=== PATIENT | male | born 1945 | race Caucasian/White ===

== ENCOUNTER 2016-10-05 08:00 | Outpatient (CLI) | payer MEDICARE ==
[~2016-10-05] VITALS: Ht 175.3 cm; Wt 92.7 kg
--- NOTE | ~2016-10-05 | HEMODYNAMI ---
PATIENT:ADRIAN RHODES MEDICAL RECORD: [id number] : 45 LOCATION[facility] [id number] ADMISSION DATE: 10/05/16 Generatedon:10/06/20169:45 Patient name: ADRIAN RHODES Patient #: [id number] : 1945 Date of study: 10/06/2016 Page: Of Hemodynamic Procedure Report Patient Data Patient Demographics Procedure consent was obtained First Name: ADRIAN Gender: Male Last Name: CARMELO : 1945 Middle Initial: W Age: 71 year(s) Patient #: [id number] Race: SSN: [id number] Additional ID: [id number] Contact details [address]: [address] [place] [address] State: [place] City: [place] Zip code: [address] Past Medical History Allergies Allergen Reaction Date Comments Reported Other allergy 10/05/2016 sulfa, rocephin Other allergy 10/06/2016 Sulfa Admission Admission Data Admission Date: 10/05/2016 Admission Time: 8:00 Arrival Date: 10/05/2016 Arrival Time: 8:00 Admit Source: Other Insurance Payor: Private Room #: [id number] health insurance Height (in.): 62 BSA: 1.93 (m2) Height (cm.): 157.48 BMI: 37.31 (kg/m2) Weight (lbs.): 204 Weight (kg.): 92.53 Lab Results Lab Result Date: 10/05/2016 Lab Result Time: 0:00 Biochemistry Name Units Result Min Max BUN mg/dl 30 --(----)-* 7 18 Creatinine mg/dl 1.5 --(----)-* 0.6 1.3 CBC Name Units Result Min Max Hemoglobin g/dl 14.9 --(-*--)-- 13.5 17.5 Procedure Procedure Types Cath Procedure PCI Procedure Coronary Stent Initial Coronary Stent Additional Miscellaneous Procedures Moderate Sedation up to 15 minutes Procedure Description Procedure Date Procedure Date: 10/06/2016 Procedure Start Time: 9:19 Procedure End Time: 9:40 Procedure Staff Name Function Greg Looney MD Performing Physician Beatriz Lim RT Scrub Terence Chavez RN Nurse Nighat Cook RT Monitor Procedure Data Cath Procedure Fluoroscopy Diagnostic fluoroscopy Total fluoroscopy Time: 7.9 time: 7.9 min min Diagnostic fluoroscopy Total fluoroscopy dose: 686 dose: 686 mGy mGy Contrast Material Contrast Material Type Amount (ml) Isovue 300 119 Entry Location Entry Primary Successful Side Size Upsize Upsize Entry Closure Succes sful Closure Location (Fr) 1 (Fr) 2 (Fr) Remarks Device Remarks Femoral Right 7 Fr 7 Fr Exoseal artery Short Long Estimated blood loss: 10 ml Procedure Complications No complications Procedure Medications Medication Administration Route Dosage Oxygen NC 2 l/min Lidocaine 2% added to field 20 Heparin Flush Bag added to field 2 bags (1000units/500ml NS) 0.9% NaCl I.V. 100 ml/hr Versed I.V. 1 mg Fentanyl I.V. 50 mcg Versed I.V. 1 mg Fentanyl I.V. 50 mcg Versed I.V. 1 mg Fentanyl I.V. 50 mcg Versed I.V. 1 mg Fentanyl I.V. 50 mcg Heparin Bolus I.V. 4000 units Versed I.V. 1 mg Fentanyl I.V. 50 mcg Hemodynamics Rest BSA: 1.93 (m2) HGB: 14.9 (g/dl) O2 Consumption: Estimated: 203.05 (ml/min) O2 Co nsumption indexed: Estimated:105.21 (ml/min/m) Heart Rate: 43 (bpm) Snapshots Pre Cath Intra NCS Post Cath Vital Signs Time Heart Resp SPO2 etCO2 LM0ocpl NIBP (mmHg) Rhythm Pain Sedation Rate (ipm) (%) (mmHg) (mmHg) Status Level (bpm) 8:15:06 56 26 95 0 0 Measuring NSR 0 (11) 10(A) , No pain 8:15:37 56 32 93 0 0 208/89(160) NSR 0 (11) 10(A) , No pain 8:20:13 51 25 92 0 0 193/88(157) NSR 0 (11) 10(A) , No pain 8:24:50 50 17 93 0 0 201/87(144) NSR 0 (11) 10(A) , No pain 8:29:20 50 18 94 0 0 178/81(156) NSR 0 (11) 10(A) , No pain 8:33:53 51 15 95 0 0 170/89(150) NSR 0 (11) 10(A) , No pain 8:39:14 49 16 94 0 0 182/84(147) NSR 0 (11) 10(A) , No pain 8:43:45 47 15 96 0 0 174/81(132) NSR 0 (11) 10(A) , No pain 8:48:17 48 17 93 0 0 178/79(158) NSR 0 (11) 10(A) , No pain 8:52:49 56 16 93 0 0 171/87(144) NSR 0 (11) 10(A) , No pain 8:57:20 56 16 96 0 0 181/76(168) NSR 0 (11) 10(A) , No pain 9:02:47 52 16 97 0 0 199/83(162) NSR 0 () 10(A) , No pain 9:07:18 52 14 96 0 0 180/76(162) NSR 0 (11) 9(A) , No pain 9:11:40 60 16 93 0 0 165/96(153) NSR 0 (11) 9(A) , No pain 9:17:14 57 15 94 0 0 186/74(128) NSR 0 (11) 9(A) , No pain 9:22:46 59 17 94 0 0 187/85(151) NSR 0 (11) 9(A) , No pain 9:27:14 67 15 94 0 0 171/86(148) NSR 0 (11) 9(A) , No pain 9:32:52 72 15 95 0 0 175/95(143) NSR 0 (11) 9(A) , No pain 9:38:44 72 16 95 0 0 228/117(194) NSR 0 (11) 10(A) , No pain Medications Time Medication Route Dose Verified Delivered Reason Notes Eff ectiveness by by 8:24:18 Oxygen NC 2 Greg Pratt used for l/min Aayush Chavez lactation specialist 8:24:25 Lidocaine 2% added 20ml Greg Garza for local to vial Aayush Looney MD anesthetic field 8:24:34 Heparin Flush added 2 Gregedwige Garza used for Bag to bags Aayush Looney MD procedure (1000units/500ml field NS) 8:24:42 0.9% NaCl I.V. 100 Greg Pratt Per ml/hr Aayush Chavez RN physician 8:52:44 Versed I.V. 1 mg Greg Pratt for Aayush Chavez RN sedation 8:52:50 Fentanyl I.V. 50 Greg aCie for mcg Aayush Chavez RN sedation 9:01:24 Versed I.V. 1 mg Greg Caie for Aayush Chavez RN sedation 9:01:27 Fentanyl I.V. 50 Greg Caie for tina Chavez RN sedation 9:05:32 Versed I.V. 1 mg Greg Caie for Aayush Chavez RN sedation 9:05:36 Fentanyl I.V. 50 Greg Caie for tina Chavez RN sedation 9:12:10 Versed I.V. 1 mg Greg Caie for Aayush Chavez RN sedation 9:12:14 Fentanyl I.V. 50 Greg Caie for tina Chavez RN sedation 9:25:27 Heparin Bolus I.V. 4000 Greg Caie verified units Aayush Chavez RN with dr looney 9:28:04 Fentanyl I.V. 50 Greg Buffie for tina Chavez RN sedation 9:28:59 Versed I.V. 1 mg Greg Pratt for Aayush Chavez RN sedation Procedure Log Time Note 7:32:34 Informed consent obtained and on chart 7:32:51 Patient Weight : 204 kg 7:32:51 Patient Height : 62 cm 7:34:19 Insurance Payor : Private health insurance 7:34:25 Arrival Date: 10/05/2016 8:00:00 AM 7:34:55 Diagnostic Cath Status : Elective 7:36:08 Terence Chavez RN sent for patient. Start room use. 7:36:09 Time tracking: Regular hours 7:36:15 Plan of Care:Hemodynamics will remain stable., Cardiac rhythm will remain stable., Comfort level will be maintained., Respiratory function will remain adequate., Patient/ family verbilizes understanding of procedure., Procedure tolerated without complication., Recovers from procedure without complications.. 8:13:09 Patient received from Med II to CCL 1 Alert and oriented. Tansferred to table in Supine position. 8:13:10 Warm blankets applied, and china hugger turned on for patient comfort. 8:13:12 Correct patient and procedure confirmed by team. 8:13:14 ECG and BP/O2 sat monitors applied to patient. 8:13:16 Vital chart was started 8:13:19 Baseline sample Acquired. 8:13:24 Rhythm: sinus rhythm 8:13:26 Full Disclosure recording started 8:13:33 H&P Date Dictated: 10/06/2016 Within 30 days and on chart.. 8:13:34 Pre-procedure instructions explained to patient. 8:13:37 Family unavailable. 8:13:39 Patient NPO since Midnight. 8:13:54 Patient allergic to Other allergySulfa 8:14:40 Is the patient allergic to Iodine/contrast media? No. 8:14:44 Is patient on blood thinner?Yes 8:14:48 ACC The patient was administered the following blood thiners within the last 24 hours: ACCPlavix 8:14:58 Patient diabetic? No. 8:15:06 Snore? Yes 8:15:11 Sleep apnea? No 8:15:15 Deviated septum? No 8:15:18 Opens mouth fully? Yes 8:15:21 Sticks out tongue? Yes 8:15:42 IV patent on arrival in left forearm with 0.9% NaCl at O. 8:16:06 Lab results completed and on chart. 8:16:11 Right groin area was prepped with chlora-prep and draped in sterile fashion 8:16:13 Alarms reviewed by R. N. 8:16:13 Sharps counted by scrub and verified by R.N. 8:16:14 Physician paged 8:16:19 Use device set Femoral PCI 8:16:20 Acist Syringe opened to sterile field. 8:16:21 Acist Hand Control opened to sterile field. 8:16:21 Bag Decanter opened to sterile field. 8:16:22 Medline Cath Pack opened to sterile field. 8:16:31 Terumo 7Fr [place] Sheath opened to sterile field. 8:16:32 Tegaderm 4 x 4 opened to sterile field. 8:16:33 Acist Manifold opened to sterile field. 8:16:35 Merit BasixCompak Inflation Kit opened to sterile field. 8:16:36 St Royce 260cm J .035 wire opened to sterile field. 8:17:18 Procedure type changed to Cath procedure, PCI procedure, Coronary Stent Initial, Coronary Stent Additional, Miscellaneous Procedures, Moderate Sedation up to 15 minutes 8:24:18 Oxygen 2 l/min NC was administered by Terence Chavez RN; used for procedure; 8:24:25 Lidocaine 2% 20ml vial added to field was administered by Greg Looney MD; for local anesthetic; 8:24:34 Heparin Flush Bag (1000units/500ml NS) 2 bags added to field was administered by Greg Looney MD; used for procedure; 8:24:42 0.9% NaCl 100 ml/hr I.V. was administered by Terence Chavez RN; Per physician; 8:28:26 Zero performed for pressure channel P1 8:42:02 Bizzbytronic Launcher 7Fr AR 2.0 SH guide catheter opened to sterile field. 8:52:05 Physician arrived 8:52:07 --------ALL STOP TIME OUT------ 8:52:07 Final Timeout: patient, procedure, and site verified with staff and physician. All members of the team are in agreement. 8:52:09 Right groin site verified by team. 8:52:15 Sedation plan: IV Moderate Sedation Versed, Fentanyl 8:52:44 Versed 1 mg I.V. was administered by Terence Chavez RN; for sedation; 8:52:50 Fentanyl 50 mcg I.V. was administered by Terence Chavez RN; for sedation; 9:01:24 Versed 1 mg I.V. was administered by Terence Chavez RN; for sedation; 9:01:27 Fentanyl 50 mcg I.V. was administered by Terence Chavez RN; for sedation; 9:05:32 Versed 1 mg I.V. was administered by Terence Chavez RN; for sedation; 9:05:36 Fentanyl 50 mcg I.V. was administered by Terence Chavez RN; for sedation; 9:12:10 Versed 1 mg I.V. was administered by Terence Chavez RN; for sedation; 9:12:14 Fentanyl 50 mcg I.V. was administered by Terence Chavez RN; for sedation; 9:18:55 Procedure started. 9:19:17 Local anesthetic to right femoral artery with Lidocaine 2% by Greg Looney MD.INITIAL ACCESS ONLY 9:20:11 A 7 Fr Short sheath was inserted into the Right Femoral artery 9:21:08 ACC PCI Site: mRCA has 80-95% stenosis. 9:21:15 ACC Pre-intervention HUEY Flow is 3. 9:21:32 7 Fr HS2SH guide catheter was inserted over the wire 9:23:04 Sheath upsized to a 7 Fr Long. 9:23:37 Medtronic Launcher 7Fr HS II SH guide catheter opened to sterile field. 9:23:55 7 Fr HS2SH guide catheter was inserted over the wire 9:24:32 Whisper wire advanced. 9:25:27 Heparin Bolus 4000 units I.V. was administered by Terence Chavez RN; ; verified with dr looney 9:25:33 Wire removed. 9:26:01 Darby Sci Choice PT Extra Support J 300cm .014 gu opened to sterile field. 9:28:04 Fentanyl 50 mcg I.V. was administered by Terence Chavez RN; for sedation; 9:28:46 Inflation number: 1 A Darby Sci [place] 2.5 X 20 balloon was prepped and advanced across the R PAV, then inflated to 17 MAVIS for 0:10 (min:sec). 9:28:57 Inflation number: 2 The Darby Sci [place] 2.5 X 20 balloon was reinflated across the R PAV, to 21 MAVIS for 0:10 (min:sec). 9:28:59 Versed 1 mg I.V. was administered by Terence Chavez RN; for sedation; 9:29:17 Balloon removed over the wire. 9:31:35 Inflation Number: 3 A Medtronic Resolute 3.0 X 22 stent was prepped and advanced across the R PAV. The stent was deployed at 13 MAVIS for 0:10 (min:sec). 9:31:49 Inflation number: 4 The stent balloon was then re-inflated across the R PAV to 17 MAVIS for 0:10 (min:sec). 9:34:15 Inflation Number: 1 A Medtronic Resolute 3.5 X 38 stent was prepped and advanced across the Mid RCA. The stent was deployed at 17 MAVIS for 0:10 (min:sec). 9:34:55 Cordis 7Fr Exoseal opened to sterile field. 9:35:15 Stent catheter was removed intact over wire. 9:35:16 Wire removed. 9:35:17 Guide catheter removed. 9:36:11 Sheath removed intact; hemostasis achieved with Exoseal to the Right Femoral artery. 9:36:15 Procedure ended.(Physican Out) 9:36:40 Fluoroscopy time 07.90 minutes. 9:37:14 Fluoroscopy dose: 686 mGy 9:37:14 Flurop Dose total: 686 9:37:19 Contrast amount:Isovue 300 119ml. 9:37:22 Sharps counted by scrub and verified by R.N. 9:37:29 Insertion/operative site no bleeding no hematoma. 9:37:34 Post Procedure Pulses reassessed and unchanged 9:37:40 Post-procedure physical assessment completed. ASA score P 3 - A patient with severe systemic disease as per Greg Looney MD. 9:37:45 Post procedure rhythm: unchanged. 9:37:49 Estimated blood loss: 10 ml 9:37:53 Post procedure instruction explained to patient.Patient verbalizes understanding. 9:37:54 Patient needs reinforcement of post procedure teaching. 9:38:40 Procedure and supply charges have been captured, reviewed, submitted and are correct. 9:39:46 Procedure Complication : No complications 9:39:51 Vital chart was stopped 9:40:00 See physician's report for complete and final results. 9:40:08 Report given to Pre/Post Procedure Room. 9:40:19 Report given to Med II. 9:40:50 Patient transfered to Med II with Bed. 9:40:56 Procedure ended. 9:40:56 Full Disclosure recording stopped 9:41:00 End room use (Document Last) 9:41:35 ACC-PCI Only Patient was given prescriptions, or instructed by Greg Looney MD to start/continue the following medications upon discharge: Plavix Intervention Summary Intervention Notes Time ActionType Lesion and Equipment Action# Pressure Duration Attributes Used 9:28:46 Inflate R PAV Darby 1 17 00:10 balloon Sci [place] 2.5 X 20 balloon 9::57 Reinflate R PAV Darby 2 21 00:10 balloon Sci [place] 2.5 X 20 balloon 9:31:35 Place stent R PAV Medtronic 3 13 00:10 Resolute 3.0 X 22 stent 9:31:49 Reinflate R PAV Medtronic 4 17 00:10 stent Resolute balloon 3.0 X 22 stent 9:34:15 Place stent Mid RCA Medtronic 1 17 00:10 Resolute 3.5 X 38 stent Device Usage Item Name Manufacture Quantity Catalog Number Hospital Part Current Mini mal Lot# / Charge Number Stock Stock Serial# Code Acist Acist 1 53677 140943 823058 [id number] 20 Syringe Medical Systems Inc Acist Hand Acist 1 88451 261858 291354 924098 5 Control Medical Systems Inc Bag Microtek 1 2002S 375903 85658 845062 5 Truzip Inc. Medline Cardinal 1 [id number] 790377 42002 781908 5 [employer] Terumo 7Fr Terumo 1 [id number] 830800 693295 590307 5 [place] Sheath Tegaderm 4 3M 1 [id number] 854034 321446 037802 5 x 4 Acist Acist 1 08815 295093 936225 539569 5 Cyvera Medical Systems Inc Merit Merit 1 [id number] 897927 012896 507651 15 BasixUP Web Game GmbHakInnovolt Medical Inflation Kit St Royce St Royce 1 [id number] 224810 301148 345106 30 260cm J .035 wire Medtronic Medtronic 1 [id number] 503346 303417 188031 0 Launcher 7Fr AR 2.0 SH guide catheter Medtronic Medtronic 1 [id number] 313762 331136 548619 0 Launcher 7Fr HS II SH guide catheter Darby Sci Darby 1 [id number] 760608 20181212 575489 5 Choice PT Scientific Extra Support J 300cm .014 gu Darby Sci Darby 1 [id number] 775921 686210 644377 1 [id number] [place] Scientific 2.5 X 20 balloon Medtronic Medtronic 1 [id number] 834668 387828 9 [id number] Resolute 3.0 X 22 stent Medtronic Medtronic 1 [id number] 290699 382420 0 [id number] Resolute 3.5 X 38 stent Cordis 7Fr Cardinal 1 [id number] 045904 812551 506173 5 Exoseal Health Signature Audit [place] Stage Time Signature Unsigned Intra-Procedure 10/06/2016 Nighat Cook 9:45:40 AM RT(R) Signatures Monitor : Nighat Cook Signature : RT Date : Time : [place] [id number] [place] [address]
--- NOTE | ~2016-10-05 | HEMODYNAMI ---
PATIENT:ADRIAN RHODES MEDICAL RECORD: [id number] : 45 LOCATION:DRonel[facility] ADMISSION DATE: 10/05/16 Generatedon:10/05/201610:55 Patient name: ADRIAN RHODES Patient #: [id number] : 1945 Date of study: 10/05/2016 Page: Of Hemodynamic Procedure Report Patient Data Patient Demographics Procedure consent was obtained First Name: ADRIAN Gender: Male Last Name: CARMELO : 1945 Middle Initial: W Age: 71 year(s) Patient #: [id number] Race: Unknown SSN: [id number] Additional ID: [id number] Contact details [address]: [address] [place] [address] State: [place] City: [place] Zip code: [address] Past Medical History Allergies Allergen Reaction Date Comments Reported Other allergy 10/05/2016 sulfa, rocephin Admission Admission Data Admission Date: 10/05/2016 Admission Time: 8:00 Arrival Date: 10/05/2016 Arrival Time: 0:00 Admit Source: Other Height (in.): 62 BSA: 1.93 (m2) Height (cm.): 157.48 BMI: 37.31 (kg/m2) Weight (lbs.): 204 Weight (kg.): 92.53 Lab Results Lab Result Date: 10/05/2016 Lab Result Time: 0:00 Biochemistry Name Units Result Min Max BUN mg/dl 30 --(----)-* 7 18 Creatinine mg/dl 1.5 --(----)-* 0.6 1.3 CBC Name Units Result Min Max Hemoglobin g/dl 14.9 --(-*--)-- 13.5 17.5 Procedure Procedure Types Cath Procedure Diagnostic Procedure C [facility] w/Coronaries PCI Procedure Coronary Stent Initial Miscellaneous Procedures Procedure Description Procedure Date Procedure Date: 10/05/2016 Procedure Start Time: 10:37 Procedure End Time: 10:52 Procedure Staff Name Function Greg Looney MD Performing Physician Nighat Cook RT Scrub Terence Chavez RN Nurse Nighat Cook RT Monitor Procedure Data Cath Procedure Fluoroscopy Diagnostic fluoroscopy Total fluoroscopy Time: 2.8 time: 2.8 min min Diagnostic fluoroscopy Total fluoroscopy dose: 672 dose: 672 mGy mGy Contrast Material Contrast Material Type Amount (ml) Isovue 300 98 Entry Location Entry Primary Successful Side Size Upsize Upsize Entry Closure Varner ccessful Closure Location (Fr) 1 (Fr) 2 (Fr) Remarks Device Remarks Radial Right 6 Fr Mechanical TR band artery Short Compression Estimated blood loss: 10 ml Diagnostic catheters Device Type Used For End Catheter Placement Terumo 5Fr Concordia 110cm Procedure catheter Procedure Complications No complications Procedure Medications Medication Administration Route Dosage Oxygen NC 2 l/min Lidocaine 2% added to field 20 Heparin Flush Bag added to field 2 bags (1000units/500ml NS) 0.9% NaCl I.V. 100 ml/hr Versed I.V. 1 mg Fentanyl I.V. 50 mcg Versed I.V. 1 mg Fentanyl I.V. 50 mcg Radial Cocktail I.A. 1 syringe (Verapomil 2mg/Nitro 400mcg/Heparin 1500units) Heparin Bolus I.V. 4000 units Fentanyl I.V. 50 mcg Hemodynamics Rest BSA: 1.93 (m2) HGB: 14.9 (g/dl) O2 Consumption: Estimated: 213.13 (ml/min) O2 Co nsumption indexed: Estimated:110.43 (ml/min/m) Heart Rate: 56 (bpm) Pressure Samples Time Site Value (mmHg) Purpose Heart Use Rate(bpm) 10:42 LV 61/2,-1 Snapshot 57 10:42 AO 136/68(91) Pullback 55 10:42 LV 138/11,13 Pullback 55 Gradients Valve Time Site 1 Site 2 Mean SEP/DFP Peak To Heart Use (mmHg) (sec/min) Peak Rate (mmHg) (bpm) Aortic 10:42 LV AO 2 12 2 55 138/11,13 136/68(91) Calculations Valve P-P Mean Valve Index Valve Source Name Gradient Area Flow (cm2) Aortic 2 2 2 2 Snapshots Pre Cath Intra NCS Post Cath Vital Signs Time Heart Resp SPO2 etCO2 [id number] NIBP (mmHg) Rhythm Pain Sedation Rate (ipm) (%) (mmHg) (mmHg) Status Level (bpm) 10:06:14 53 22 93 0 0 174/86(151) NSR 0 (11) 10(A) , No pain 10:10:44 53 15 94 0 0 191/93(160) NSR 0 (11) 10(A) , No pain 10:15:19 52 15 93 0 0 174/83(156) NSR 0 (11) 10(A) , No pain 10:19:45 54 16 95 0 0 159/90(144) NSR 0 (11) 10(A) , No pain 10:25:15 51 15 94 0 0 162/79(141) NSR 0 (11) 10(A) , No pain 10:30:32 48 16 94 0 0 167/78(136) NSR 0 (11) 10(A) , No pain 10:35:52 51 16 93 0 0 154/82(134) NSR 0 (11) 10(A) , No pain 10:41:23 57 15 94 0 0 149/77(124) NSR 0 (11) 9(A) , No pain 10:45:48 62 16 93 0 0 162/79(127) NSR 0 (11) 9(A) , No pain 10:50:10 62 17 94 0 0 145/77(125) NSR 0 (11) 10(A) , No pain Medications Time Medication Route Dose Verified Delivered Reason Note s Effectiveness by by 10:15:21 Oxygen NC 2 l/min Greg Buffie used for Aayush Chavez RN procedure 10:15:28 Lidocaine 2% added 20ml Greg Buffie used for to vial Aayush Chavez RN procedure field 10:15:34 Heparin Flush added 2 bags Greg Buffie used for Bag to Aayush Chavez RN procedure (1000units/500ml field NS) 10:16:21 0.9% NaCl I.V. 100 Greg Buffie Per physician ml/hr Aayush Chavez RN 10:36:15 Versed I.V. 1 mg Greg Buffie for sedation Aayush Chavez RN 10:36:21 Fentanyl I.V. 50 mcg Greg Buffie for sedation Aayush Chavez RN 10:39:52 Versed I.V. 1 mg Greg Buffie for sedation Aayush Chavez RN 10:39:56 Fentanyl I.V. 50 mcg Greg Pratt for sedation Aayush Chavez RN 10:40:22 Radial Cocktail I.A. 1 Greg Garza for (Verapomil syringe Aayush Looney MD vasodilation 2mg/Nitro 400mcg/Heparin 1500units) 10:45:55 Heparin Bolus I.V. 4000 Greg Pratt for veri fied units Aayush Chavez RN anticoagulation with dr looney 10:47:31 Fentanyl I.V. 50 mcg Greg Pratt for sedation Aayush Chavez RN Procedure Log Time Note 9:47:36 Arrival Date: 10/05/2016 12:00:00 AM 9:47:37 Admit Source: Other 9:47:52 Patient Height : 62 cm 9:48:13 Patient Weight : 204 kg 9:50:40 Lab Result : BUN 30 mg/dl 9:50:40 Lab Result : Hemoglobin 14.9 g/dl 9:50:40 Lab Result : Creatinine 1.5 mg/dl 9:50:51 Procedure type changed to Cath procedure, Diagnostic procedure, LHC, LHC w/Coronaries, PCI procedure, Coronary Stent Initial, Miscellaneous Procedures 9:50:54 Diagnostic Cath Status : Elective 9:51:47 Terence Chavez RN sent for patient. Start room use. 9:51:49 Time tracking: Regular hours 9:51:55 Plan of Care:Hemodynamics will remain stable., Cardiac rhythm will remain stable., Comfort level will be maintained., Respiratory function will remain adequate., Patient/ family verbilizes understanding of procedure., Procedure tolerated without complication., Recovers from procedure without complications.. 9:55:53 Patient received from Pre/Post Procedure Room to CCL 1 Alert and oriented. Tansferred to table in Supine position. 9:55:55 Warm blankets applied, and china hugger turned on for patient comfort. 9:55:56 Correct patient and procedure confirmed by team. 9:55:58 Signed procedure consent form obtained from patient. 10:04:50 ECG and BP/O2 sat monitors applied to patient. 10:04:50 Vital chart was started 10:04:51 Baseline sample Acquired. 10:04:54 Rhythm: sinus rhythm 10:04:56 Full Disclosure recording started 10:05:07 H&P Date Dictated: 10/05/2016 H&P Addendum completed by physician on day of procedure. (MUST COMPLETE FOR ALL OUTPATIENTS). 10:05:08 Pre-procedure instructions explained to patient. 10:05:09 Pre-op teaching completed and patient verbalized understanding. 10:05:10 Family in waiting room. 10:05:12 Patient NPO since Midnight. 10:05:28 Patient allergic to Other allergysulfa, rocephin 10:05:30 Is the patient allergic to Iodine/contrast media? No. 10:05:31 Was the patient premedicated? No 10:05:34 Is patient on blood thinner?Yes 10:05:37 ACC The patient was administered the following blood thiners within the last 24 hours: ACCPlavix 10:05:40 Patient diabetic? No. 10:05:44 Previous problem with sedation/anesthesia? No ? 10:05:46 Snore? Yes 10:05:47 Sleep apnea? No 10:05:48 Deviated septum? No 10:05:49 Opens mouth fully? Yes 10:05:50 Sticks out tongue? Yes 10:05:52 Airway obstruction? No ? 10:05:55 Dentures? No ? 10:06:00 Pre procedure: right dorsailis pedis pulse 1+ Palpable, but thready & weak; easily obliterated 10:06:02 Patient pain scale 0/10 ?. 10:06:12 IV patent on arrival in left hand with 0.9% NaCl at [facility]. 10:06:16 Lab results completed and on chart. 10:06:25 Right Radial & Right Groin area was prepped with chlora-prep and draped in sterile fashion 10:06:28 Alarms reviewed by R. N. 10:06:29 Sharps counted by scrub and verified by R.N. 10:06:30 Physician paged 10:15:21 Oxygen 2 l/min NC was administered by Terence Chavez RN; used for procedure; 10::28 Lidocaine 2% 20ml vial added to field was administered by Terence Chavez RN; used for procedure; 10:15:34 Heparin Flush Bag (1000units/500ml NS) 2 bags added to field was administered by Terence Chavez RN; used for procedure; 10:16:21 0.9% NaCl 100 ml/hr I.V. was administered by Terence Chavez RN; Per physician; 10:24:23 Zero performed for pressure channel P1 10:25:55 Physician arrived 10:35:49 --------ALL STOP TIME OUT------ 10:35:50 Final Timeout: patient, procedure, and site verified with staff and physician. All members of the team are in agreement. 10:35:52 Right Radial & Right Groin site verified by team. 10:35:58 Sedation plan: IV Moderate Sedation Versed, Fentanyl 10:36:06 Physical assessment completed. ASA score P 2 - A patient with mild systemic disease as per Greg Looney MD. 10:36:15 Versed 1 mg I.V. was administered by Terence Chavez RN; for sedation; 10:36:21 Fentanyl 50 mcg I.V. was administered by Terence Chavez RN; for sedation; 10:37:31 Procedure started. 10:37:37 Local anesthetic to right radial artery with Lidocaine 2% by Greg Looney MD.INITIAL ACCESS ONLY 10:39:15 A 6 Fr Short sheath was inserted into the Right Radial artery 10:39:25 Use device set Radial Dx 10:39:27 Acist Syringe opened to sterile field. 10:39:27 Medline Cath Pack opened to sterile field. 10:39:28 Bag Decanter opened to sterile field. 10:39:28 Terumo 6Fr Slender Glidesheath opened to sterile field. 10:39:29 St Royce 260cm J .035 wire opened to sterile field. 10:39:29 Acist Hand Control opened to sterile field. 10:39:29 Acist Manifold opened to sterile field. 10:39:30 Tegaderm 4 x 4 opened to sterile field. 10:39:30 MBrace Wrist Support opened to sterile field. 10:39:52 Versed 1 mg I.V. was administered by Terence Chavez RN; for sedation; 10:39:56 Fentanyl 50 mcg I.V. was administered by Terence Chavez RN; for sedation; 10:40:15 A Terumo 5Fr Concordia 110cm catheter was advanced over the wire and used for Procedure. 10:40:22 Radial Cocktail (Verapomil 2mg/Nitro 400mcg/Heparin 1500units) 1 syringe I.A. was administered by Greg Looney MD; for vasodilation; 10:40:35 LV angiography performed. 10:41:16 LV gram done using MOSES 10:42:24 EF : 50 % 10:42:27 LCA angiography performed. 10:43:07 RCA angiography performed. 10:44:18 Catheter removed. 10:45:30 Cordis 6FR XBLAD 3.5 guide catheter opened to sterile field. 10:45:31 Merit BasixCompak Inflation Kit opened to sterile field. 10:45:32 Barton Whisper J 300cm 0.014 guide wire opened to sterile field. 10:45:55 Heparin Bolus 4000 units I.V. was administered by Terence Chavez RN; for anticoagulation; verified with dr looney 10:46:02 Proceeding to intervention. 10:46:19 6 Fr XBLAD 3.5 guide catheter was inserted over the wire 10:46:40 Serina Therapeuticsisper wire advanced. 10:47:07 Wire advanced across lesion. 10:47:31 Fentanyl 50 mcg I.V. was administered by Terence Chavez RN; for sedation; 10:48:27 Inflation Number: 1 A MedMark Servicestronic Resolute 2.75 X 14 stent was prepped and advanced across the Mid LAD. The stent was deployed at 13 MAVIS for 0:10 (min:sec). 10:49:25 Stent catheter was removed intact over wire. 10:49:26 Wire removed. 10:49:26 Guide catheter removed. 10:49:35 Terumo TR Band Standard opened to sterile field. 10:49:54 Sheath removed intact; hemostasis achieved with Mechanical Compression to the Right Radial artery. 10:50:43 Procedure ended.(Physican Out) 10:50:53 Fluoroscopy time 02.80 minutes. 10:51:02 Fluoroscopy dose: 672 mGy 10:51:02 Flurop Dose total: 672 10:51:08 Contrast amount:Isovue 300 98ml. 10:51:10 Sharps counted by scrub and verified by R.N. 10:51:14 TR band inflated with 10cc of air. 10:51:16 Insertion/operative site no bleeding no hematoma. 10:51:19 Post Procedure Pulses reassessed and unchanged 10:51:23 Estimated blood loss: 10 ml 10:51:26 Post procedure instruction explained to patient.Patient verbalizes understanding. 10:51:34 Procedure and supply charges have been captured, reviewed, submitted and are correct. 10:52:01 Procedure Complication : No complications 10:52:03 Vital chart was stopped 10:52:05 See physician's report for complete and final results. 10:52:07 Report given to Pre/Post Procedure Room. 10:52:11 Patient transfered to Pre/Post Procedure Room with Stretcher. 10:52:14 Procedure ended. 10:52:14 Full Disclosure recording stopped 10:52:36 End room use (Document Last) Intervention Summary Intervention Notes Time ActionType Lesion and Equipment Action# Pressure Duration Attributes Used 10:48:27 Place stent Mid LAD Medtronic 1 13 00:10 Resolute 2.75 X 14 stent Device Usage Item Name Manufacture Quantity Catalog Hospital Part Current Minimal Lot# / Number Charge Number Stock Stock Serial# Code Acist Acist 1 48814 293743 173599 238256 20 Syringe Medical Systems Inc Medline Cardinal 1 [id number] 706789 08818 256836 5 Cath Pack Health Bag Microtek 1 2002S 849943 43905 137137 5 ERCOM Medical Inc. Terumo 6Fr Terumo 1 [id number] 212846 635532 691258 [address] St Royce 1 009567 089974 310904 196024 30 260cm J .035 wire Acist Hand Acist 1 48755 160726 172194 471228 5 Control Medical Systems Inc Acist Acist 1 24827 742210 708478 735749 5 Manifold Medical Systems Inc Tegaderm 4 3M 1 1626W 319384 913085 721267 5 x 4 MBrace Advanced 1 140-0250-00 927089 26513 834935 5 Wrist Vascular Support Dynamics Terumo 5Fr Terumo 1 40-6345 244503 004051 255238 5 Concordia 110cm catheter Cordis 6FR Cardinal 1 [id number] 500495 806638 847685 10 XBLAD 3.5 Health guide catheter Merit Merit 1 GI7155 469133 979918 245198 15 BasixCompak Medical Inflation Kit Barton Barton 1 [id number] 953673 594988 968461 5 Whisper J Vascular 300cm 0.014 guide wire Medtronic Medtronic 1 [id number] 441461 848059 4 [id number] Resolute 2.75 X 14 stent Terumo TR Terumo 1 [id number] 379438 384627 910801 40 Band Standard Signature Audit [place] Stage Time Signature Unsigned Intra-Procedure 10/05/2016 Nighat Cook 10:55:09 AM RT(R) Signatures Monitor : Nighat Cook Signature : RT Date : Time : [place] [id number] [facility] [place] [address]
[~2016-10-05 08:00] MED LIST: ARTHRITIS MED; BAYER CHEWABLE81 MG PO; CINNAMON500 MG PO; GEMFIBROZIL600 MG PO; HYZAAR 100-25 T1 TAB PO; MULTIPLE VITAMI1 TA1 PO; NIASPAN500 MG PO; NORVASC10 MG PO; PLAVIX75 MG PO
[2016-10-05 08:27] VITALS: BP 193/86; BMI 30.2
[2016-10-05 08:47] LABS: BASOPHILS 0.5 % (0-2); EOSINOPHILS 2.5 % (0-7); HEMATOCRIT 42.8 % (42.0-54.0); HEMOGLOBIN 14.9 g/dL (13.5-17.5); IMMATURE GRANULOCYTES 0.4 % (0-5); LYMPHOCYTES 29.7 % (15-50); MCH 29.4 pg (26.0-34.0); MCHC 34.8 g/dL (31.0-37.0); MCV 84.4 fL (80.0-100.0); MEAN PLATELET VOLUME 9.6 fL (7.4-10.4); MONOCYTES 8.8 % (2-11); NEUTROPHILS 58.1 % (40-80); PLATELET COUNT 271 10x3/uL (130-400); RBC 5.07 10x6/uL (4.20-6.10); RDW 13.2 % (11.5-14.5); WBC 5.6 10x3/uL (4.8-10.8)
[2016-10-05 09:06] LABS: ANION GAP 16.5 mmol/L (8-16); CALCIUM 9.4 mg/dL (8.5-10.1); CARBON DIOXIDE 25.7 mmol/L (21.0-32.0); CREATININE - SERUM 1.5 mg/dL (0.6-1.3); POTASSIUM - SERUM 4.2 mmol/L (3.5-5.1)
[2016-10-05 09:22] LABS: CKMB 2.6 U/L (0.0-3.6); CREATINE KINASE 116 UL (21-232); TROPONIN-I 0.036 ng/mL (0.000-0.060)
--- NOTE | 2016-10-05 12:03 | NUR ---
1115-TR BAND TO RIGHT WRIST- CDI, NO BLEEDING NOTED
--- NOTE | 2016-10-05 12:06 | NUR ---
1145-NO CHANGES, VISITING WITH FAMILY, DENIES NEEDS
--- NOTE | 2016-10-05 17:39 | NUR ---
1645-CALLED REPORT TO FLORESITA BARNETT. AWAITING CLEAN ROOM. 1705-TRANSFER VIA STRETCHER TO ROOM 2123, IV PATENT, RIGHT WRIST CDI
[2016-10-05 17:44] VITALS: BP 156/86; Ht 175.3 cm; Wt 92.7 kg
--- NOTE | 2016-10-05 17:51 | NUR ---
ARRIVED FROM [employer]. TR BAND OFF AND DRESSING CDI AND NO EDEMA. HAS BEEN UP TO BR WITHOUT ANY ISSUES. MONITOR SHOWS SBRADY @ RATE OF 55. WILL CONTINUE TO MONITOR.
--- NOTE | 2016-10-05 19:30 | NUR ---
ALERT AND ORIENTED X3 RESP UNLAB NS INFUSING W/O DIFF TO LEFT HAND WITH NO R/S NOTED AT SITE. RT WRIST BRACE FROM TR BAND ON. NO ACTIVE BLEEDING NOTED AT THIS TIME. UP AD ANDER W/O DIFF. WILL BE NPO AFTER MN FOR PROCEDURE IN AM. HOB UP SR UP X2, C/L IN REACH. CONTINUE TO MONITOR.
[2016-10-05 20:44] VITALS: BP 185/82
[2016-10-05 23:58] VITALS: BP 198/80
--- NOTE | 2016-10-06 | NUR ---
O2 @ 2L PLACED ON FOR O2 SAT OF 87%. CONTINUE TO MONITOR.
[2016-10-06 03:55] VITALS: BP 185/73
--- NOTE | 2016-10-06 07:42 | NUR ---
PREOP FOR CATH.
[2016-10-06 07:54] VITALS: BP 170/76
--- NOTE | 2016-10-06 08:06 | OP ---
PATIENT NAME: ADRIAN RHODES MEDICAL RECORD: [id number] :45 LOCATION:D.M2 D.2123 ADMISSION DATE: SURGEON: YINA ALLISON MD DATE OF OPERATION: 10/05/2016 PROCEDURES: 1. PTCA stent, LAD. 2. Left heart catheterization. 3. Selective coronary angiography. 4. Left ventriculogram. INDICATIONS: Angina and coronary artery disease. PROCEDURE IN DETAIL: After informed consent was obtained and after a detailed explanation of risks, benefits as well as alternative therapies, the patient elected to proceed with angiogram and angioplasty. The right radial area was prepped and draped in normal sterile fashion. Right radial artery was cannulated via modified Seldinger technique with placement of 6-Grenadian sheath. All catheters exchanged through this sheath. FINDINGS: The left ventriculogram was performed in standard 30-degree MOSES view, reveals preserved cardiac wall motion, ejection fraction 50%. SELECTIVE CORONARY ANGIOGRAPHY: 1. Left main is with no significant angiographic disease. 2. Left anterior descending has a 75% stenosis in the mid vessel. 3. Left circumflex has multiple areas of greater than 70% stenosis. 4. Right coronary is large, dominant, has multiple areas of greater than 80% stenosis throughout the mid portion of the vessel. The distal vessel has 95% stenosis; however, this would be better approached via femoral approach of a 7-Grenadian. PTCA STENT OF THE LAD: The stent used was a 2.5 x 12 mm Resolute. Result was 0% residual stenosis. OVERALL IMPRESSION: Successful percutaneous transluminal coronary angioplasty stent of the left anterior descending going from 75% initial stenosis to 0% residual. Plan for PTCA stent of the RCA in the near future. TRANSINT:[id number] Voice Confirmation ID: [id number] DOCUMENT ID: [id number] YINA ALLISON MD at 0806 CC: [id number] DICTATION DATE: 10/05/16 1057 CHIEF WRITER: 10/05/16 1825 [facility] [address] [place] [address]
--- NOTE | 2016-10-06 10:29 | NUR ---
PT RETURNED FROM [facility]. BP 212/100. DR. ALLISON NOTIFIED AND ORDERS RECEIVED. SITE CDI WITH NO EDEMA NOR BLEEDING. PT TO LAY FLAT UNTIL 1400. INSTRUCTED PATIENT ON THIS AND FAMILY ALSO. WILL CONTINUE TO MONITOR.
--- NOTE | 2016-10-06 11:35 | NUR ---
BP LOWING. NOW ITS 154/70. PATIENT SLEEPING SITE CLEAR WITHOUT ANY EDEMA OR BLEEDING.
--- NOTE | 2016-10-06 15:04 | NUR ---
SITE CLEAN AND DRY. UP TO AMB IN ROOM KAMILA WELL WITH OUT ANY DISTRESS. IV DC .
--- NOTE | 2016-10-06 15:26 | NUR ---
DISCHARGE INSTRUCTIONS GIVEN TO PATIENT. BOTH PATIENT AND FAMILY VERBALIZE UNDERSTANDING. TO CAR VIA WC.
--- NOTE | 2016-10-08 08:58 | OP ---
PATIENT NAME: ADRIAN RHODES MEDICAL RECORD: [id number] :45 LOCATION:D.CAT ADMISSION DATE: SURGEON: YINA ALLISON MD DATE OF OPERATION: 10/06/2016 PROCEDURES: 1. PTCA stent of RCA. 2. PTCA of RCA PLV. 3. Selective coronary angiography. INDICATION: Angina and coronary artery disease. DESCRIPTION OF THE PROCEDURE: After informed consent was obtained and after detailed explanation of risks, benefits, as well as alternative therapies, the patient elected to proceed with angiogram and angioplasty. The right femoral area was prepped and draped in normal sterile fashion. The right femoral artery was cannulated via modified Seldinger technique with placement of a 7-Russian sheath. All catheters exchanged through this sheath. FINDINGS: The right coronary artery has multiple areas of greater than 90% stenosis. The PLV has in-stent restenosis addressed with a 2.5 balloon taken to 17 atmospheres. The RCA itself was addressed with a 3.5 x 38 and 3.0 x 22, both Resolute stents. Result was 0% residual throughout. OVERALL IMPRESSION: Successful percutaneous transluminal coronary angioplasty stent of the right coronary artery going from multiple areas of 90% initial stenosis to 0% residual stenosis. TRANSINT:[id number] Voice Confirmation ID: [id number] DOCUMENT ID: [id number] YINA ALLISON MD at 0858 CC: [id number] DICTATION DATE: 10/06/16 0939 JOURNEYMAN MEAT CUTTER: 10/06/16 1529 [facility] CLI 10/06/16 [place] [id number]
--- NOTE | 2016-10-08 08:58 | DS ---
PATIENT:ADRIAN DICKERSON :45 MEDICAL RECORD: [id number] DISCHARGE SUMMARY ADMISSION DATE: 10/05/16 DISCHARGE DATE: 10/06/16 DISCHARGE DIAGNOSES: 1. Percutaneous transluminal coronary angioplasty stent of the right coronary artery. 2. Percutaneous transluminal coronary angioplasty stent of the left anterior descending. 3. Angina. 4. Coronary artery disease. 5. Peripheral vascular disease. 6. Hypertension. 7. Hyperlipidemia. HOSPITAL COURSE: Mr. Dickerson presents with anginal symptomatology and found to have significant disease to the RCA, LAD, and left circumflex, underwent successful PTCA stent of the RCA and LAD and had an uneventful postop course. He was discharged home with the addition of aspirin and Plavix to his medical regimen. We will follow up in 1 week for PTCA stent of the left circumflex. TRANSINT:[id number] Voice Confirmation ID: [id number] DOCUMENT ID: [id number] YINA ALLISON MD at 0858 CC: [id number] DICTATION DATE: 10/06/1638 NUCLEAR TECHNICIAN: 10/07/16 0219 [facility] CLI 10/06/16 [place] [id number] [place] [address]
== END 2016-10-06 15:41 | disposition home or self-care (01) ==
LOC: D.M2 08:00 → D.CATH 08:00 → D.M2 17:23 → D.CATH 10-06 15:41
PROVIDERS: Internal Medicine Interventional Cardiology
DX: I25.119 Atherosclerotic heart disease of native coronary artery with unspecified angina pectoris (principal); T82.855A Stenosis of coronary artery stent, initial encounter; I73.9 Peripheral vascular disease, unspecified; I10 Essential (primary) hypertension; E78.5 Hyperlipidemia, unspecified
CPT/HCPCS: 93458; 92921; C9600 ×2

== ENCOUNTER 2016-10-12 07:36 | Outpatient (CLI) | payer MEDICARE ==
[~2016-10-12] VITALS: Ht 175.3 cm; Wt 92.7 kg
--- NOTE | ~2016-10-12 | HP ---
PATIENT: ADRIAN DICKERSON MEDICAL RECORD: [id number] ACCOUNT: [id number] LOCATION:KATY : 45 ADMISSION DATE: 10/12/16 HISTORY AND PHYSICAL EXAMINATION ADMITTING DIAGNOSES: 1. Angina. 2. Coronary artery disease. 3. Recent percutaneous transluminal coronary angioplasty stent left anterior descending and right coronary artery with concomitant disease of the circumflex. 4. Hypertension. 5. Hyperlipidemia. HISTORY OF PRESENT ILLNESS: Mr. Dickerson presents with anginal symptomatology, found to have 3-vessel coronary artery disease, underwent PTCA stent of the LAD and RCA. He has continued to have anginal symptomatology, now brought back for PTCA stent of the left circumflex. PHYSICAL EXAMINATION: GENERAL APPEARANCE: Well-nourished, well-developed, appears stated age. Level of distress, comfortable. PSYCHIATRIC: Mental status, alert, normal affect. Orientation, oriented to time, place and person. EYES: Lids and conjunctiva, noninjected. No discharge, no pallor. ENT: Lips, teeth, gums, normal dentition. Oropharynx, no cyanosis, no pallor. NECK: Carotid arteries, bilateral normal upstroke, no bruits, no thrills. JUGULAR VEINS: No jugular venous pressure or distention. CERVICAL LYMPH NODES: Nontender, nonenlarged. THYROID: Not enlarged. Nontender. No nodules. LUNGS: Respiratory effort, unlabored. CHEST: Normal curvature. No thoracic deformity. No chest wall tenderness. Percussion, resonant. Auscultation, clear. No wheezes, no rales, no rhonchi. CARDIOVASCULAR: Precordial exam, nondisplaced. No heaves or pericardial thrills. Rate and rhythm, regular. Heart sounds, normal S1, normal S2. No S3, no gallop, no rub. Systolic murmur, not heard. Diastolic murmur, not heard. EXTREMITIES: No cyanosis, no edema. Peripheral pulses, full and equal in all extremities, except as noted. No bruits appreciated. ABDOMEN: Soft, nondistended. Normal aorta. No bruit. Nontender. No masses. Liver, nontender, no hepatomegaly. Spleen, nontender, no splenomegaly. MUSCULOSKELETAL: No joint tenderness. No joint swelling. No erythema. NEUROLOGICAL: Normal gait, normal strength, normal tone. SKIN: Warm and dry. REVIEW OF SYSTEMS: The patient reports easy bruising but reports no swollen glands. The patient reports no fever, no night sweats, no significant weight gain, no significant weight loss. No significant exercise tolerance. The patient reports no dry eyes, no irritation, no vision change. Patient reports no difficulty hearing and no ear pain. Patient reports no frequent nose bleeds or nose and sinus problems. Patient reports on arm pain on exertion. No shortness of breath while lying down. No history of heart murmur. Patient reports no cough, no wheezing or coughing up blood. Patient reports no abdominal pain, no vomiting. Normal appetite. No diarrhea and not vomiting blood. No nausea and no constipation. Patient reports no incontinence. No difficulty urinating. No hematuria. No increased frequency. Patient reports no muscle aches. No weakness, no arthralgias, no back pain. No swelling of the HISTORY AND PHYSICAL [id number] CARMELO,ADRIAN W extremities. Patient reports no abnormal mole, no jaundice, no rashes. Reports no loss of consciousness. No weakness and no numbness. No seizures, dizziness, or headaches. The patient reports no depression, no sleep disturbance, feeling safe in a relationship and no alcohol abuse. Patient reports on fatigue. Reports no runny nose or sinus pressure. No itching, no hives, and no frequent sneezing. OVERALL IMPRESSION: Anginal symptomatology with significant disease of the circumflex. We will proceed with transcatheter revascularization of the circumflex. TRANSINT:[id number] Voice Confirmation ID: [id number] DOCUMENT ID: [id number] YINA ALLISON MD CC: [id number] DICTATION DATE: 10/12/16807 AUTO SERVICE INSTRUCTOR: 10/12/16824 [facility] [address] [place] [address]
--- NOTE | ~2016-10-12 | OP ---
PATIENT NAME: ADRIAN RHODES MEDICAL RECORD: [id number] :45 LOCATION:D.CAT ADMISSION DATE: SURGEON: YINA ALLISON MD DATE OF OPERATION: 10/12/2016 PROCEDURES: 1. PTCA stent left circumflex. 2. Selective coronary angiography. INDICATION: Angina and coronary artery disease. PROCEDURE: After informed consent was obtained and after detailed explanation of risks, benefits as well as alternative therapies, the patient elected to proceed with angiogram and angioplasty. The right radial area was prepped and draped in normal sterile fashion. The right radial artery was cannulated via modified Seldinger technique with placement of 6-Thai sheath. All catheters exchanged through this sheath. FINDINGS: The left circumflex has multiple areas of 70%-90% stenosis addressed with 2.5 x 28 and 2.5 x 16, both Promus drug-eluting stents. Result was 0% residual stenosis. OVERALL IMPRESSION: Successful percutaneous transluminal coronary angioplasty stent of the left circumflex going from 90% initial stenosis to 0% residual. TRANSINT:[id number] Voice Confirmation ID: [id number] DOCUMENT ID: [id number] YINA ALLISON MD CC: [id number] DICTATION DATE: 10/12/16 0947 FINANCIAL MARKET DEALER: 10/12/[address] [facility] [address] [place] [address]
--- NOTE | ~2016-10-12 | HEMODYNAMI ---
PATIENT:ADRIAN RHODES MEDICAL RECORD: [id number] : 45 LOCATION:DRonelCAT ADMISSION DATE: 10/12/16 Generatedon:10/12/20169:48 Patient name: ADRIAN RHODES Patient #: [id number] : 1945 Date of study: 10/12/2016 Page: Of Hemodynamic Procedure Report Patient Data Patient Demographics Procedure consent was obtained First Name: ADRIAN Gender: Male Last Name: CARMELO : 1945 Middle Initial: W Age: 71 year(s) Patient #: [id number] Race: SSN: [id number] Additional ID: [id number] Contact details [address]: [address] [place] [address] State: [place] City: [place] Zip code: [address] Past Medical History Allergies Allergen Reaction Date Comments Reported Other allergy 10/05/2016 sulfa, rocephin Other allergy 10/06/2016 Sulfa Admission Admission Data Admission Date: 10/12/2016 Admission Time: 7:36 Procedure Procedure Types Cath Procedure PCI Procedure Coronary Stent Initial Miscellaneous Procedures Moderate Sedation up to 30 minutes Procedure Description Procedure Date Procedure Date: 10/12/2016 Procedure Start Time: 9:28 Procedure End Time: 9:47 Procedure Staff Name Function Greg Looney MD Performing Physician Ev Blancas RN Nurse Vitor Banegas RT Monitor Abrahan Merrtit RT Scrub Procedure Data Cath Procedure Fluoroscopy Diagnostic fluoroscopy Total fluoroscopy Time: 5.8 time: 5.8 min min Diagnostic fluoroscopy Total fluoroscopy dose: 636 dose: 636 mGy mGy Contrast Material Contrast Material Type Amount (ml) Isovue 300 73 Entry Location Entry Primary Successful Side Size Upsize Upsize Entry Closure Varner ccessful Closure Location (Fr) 1 (Fr) 2 (Fr) Remarks Device Remarks Radial Right 6 Fr Mechanical artery Short Compression Estimated blood loss: 10 ml Procedure Complications No complications Procedure Medications Medication Administration Route Dosage Oxygen NC 2 l/min Heparin Flush Bag added to field 2 bags (1000units/500ml NS) Lidocaine 2% added to field 20 Radial Cocktail added to field 1 syringe (Verapomil 2mg/Nitro 400mcg/Heparin 1500units) Versed I.V. 1 mg Fentanyl I.V. 50 mcg Versed I.V. 1 mg Fentanyl I.V. 50 mcg Heparin Bolus I.V. 4000 units Versed I.V. 0.5 mg Fentanyl I.V. 25 mcg Radial Cocktail I.A. 1 syringe (Verapomil 2mg/Nitro 400mcg/Heparin 1500units) Hemodynamics Rest HGB: 14.9 (g/dl) Heart Rate: 57 (bpm) Snapshots Pre Cath Intra NCS Post Cath Vital Signs Time Heart Resp SPO2 etCO2 DP0prlk NIBP (mmHg) Rhythm Pain Sedation Rate (ipm) (%) (mmHg) (mmHg) Status Level (bpm) 8:57:02 56 16 96 0 0 No Cuff SB 0 (11) 10(A) , No pain 8:59:15 57 16 97 0 0 167/86(142) SB 0 (11) 10(A) , No pain 9:03:44 53 20 98 0 0 170/83(147) SB 0 (11) 10(A) , No pain 9:08:43 55 18 94 0 0 Measuring SB 0 (11) 10(A) , No pain 9:08:55 58 18 96 0 0 158/85(129) SB 0 (11) 10(A) , No pain 9:13:21 53 17 95 0 0 152/77(131) SB 0 (11) 10(A) , No pain 9:17:43 55 17 95 0 0 145/79(114) SB 0 (11) 10(A) , No pain 9:22:03 54 15 96 0 0 156/79(123) SB 0 (11) 10(A) , No pain 9:26:22 53 16 95 0 0 154/81(133) SB 0 (11) 10(A) , No pain 9:30:44 57 15 95 0 0 150/78(130) SB 0 (11) 9(A) , No pain 9:35:00 63 15 95 0 0 133/76(99) SB 0 (11) 9(A) , No pain 9:39:18 59 16 95 0 0 139/75(122) SB 0 (11) 9(A) , No pain 9:43:34 58 16 96 0 0 144/74(122) SB 0 (11) 9(A) , No pain Medications Time Medication Route Dose Verified Delivered Reason Notes Effectiveness by by 8:56:23 Oxygen NC 2 l/min Greg Ev Per physician Aayush Blancas RN 8:56:29 Heparin Flush added 2 bags Greg Greg used for Bag to Aayush Looney MD procedure (1000units/500ml field NS) 8:56:36 Lidocaine 2% added 20ml Greg Greg used for to vial Aayush Looney MD procedure field 8:56:45 Radial Cocktail added 1 Greg Greg used for (Verapomil to syringe Aayush Looney MD procedure 2mg/Nitro field 400mcg/Heparin 1500units) 9:26:53 Versed I.V. 1 mg Greg Ev for sedation Aayush Blancas RN 9:26:58 Fentanyl I.V. 50 mcg Greg Ev for sedation Aayush Blancas RN 9:28:50 Versed I.V. 1 mg Greg Ev for sedation Aayush Blancas RN 9:28:53 Fentanyl I.V. 50 mcg Greg Ev for sedation Aayush Blancas RN 9:28:58 Radial Cocktail I.A. 1 Greg Greg for (Verapomil syringe Aayush Looney MD vasodilation 2mg/Nitro 400mcg/Heparin 1500units) 9:30:16 Fentanyl I.V. 25 mcg Greg Ev for sedation Aayush Blancas RN 9:31:00 Versed I.V. 0.5 mg Greg Ev for sedation Aayush Blancas RN 9:31:26 Heparin Bolus I.V. 4000 Greg Ev for dose units Aayush Blancas RN anticoagulation verified [facility] looney Procedure Log Time Note 8:35:49 Abrahan Merritt RT(R) sent for patient. Start room use. 8:49:01 Time tracking: Regular hours 8:49:06 Plan of Care:Hemodynamics will remain stable., Cardiac rhythm will remain stable., Comfort level will be maintained., Respiratory function will remain adequate., Patient/ family verbilizes understanding of procedure., Procedure tolerated without complication., Recovers from procedure without complications.. 8:50:44 Patient received from Pre/Post Procedure Room to CCL 1 Alert and oriented. Tansferred to table in Supine position. 8:50:46 Warm blankets applied, and china hugger turned on for patient comfort. 8:50:47 Correct patient and procedure confirmed by team. 8:50:48 Signed procedure consent form obtained from patient. 8:50:49 ECG and BP/O2 sat monitors applied to patient. 8:56:12 Vital chart was started 8:56:23 Oxygen 2 l/min NC was administered by Ev Blancas RN; Per physician; 8:56:29 Heparin Flush Bag (1000units/500ml NS) 2 bags added to field was administered by Greg Looney MD; used for procedure; 8:56:36 Lidocaine 2% 20ml vial added to field was administered by Greg Looney MD; used for procedure; 8:56:45 Radial Cocktail (Verapomil 2mg/Nitro 400mcg/Heparin 1500units) 1 syringe added to field was administered by Greg Looney MD; used for procedure; 9:04:21 Baseline sample Acquired. 9:04:25 Rhythm: sinus bradycardia 9:04:26 Full Disclosure recording started 9:06:11 H&P Date Dictated: 10/12/2016 New H&P dictated by physician.. 9:06:12 Pre-procedure instructions explained to patient. 9:06:13 Pre-op teaching completed and patient verbalized understanding. 9:06:14 Family in waiting room. 9:06:16 Patient NPO since Midnight. 9:06:17 Is the patient allergic to Iodine/contrast media? No. 9:06:20 Is patient on blood thinner?Yes 9:06:25 ACC The patient was administered the following blood thiners within the last 24 hours: ACCPlavix 9:06:29 Patient diabetic? No. 9:06:34 Previous problem with sedation/anesthesia? No ? 9:06:34 Snore? Yes 9:06:36 Sleep apnea? No 9:06:38 Deviated septum? No 9:06:40 Opens mouth fully? Yes 9:06:41 Sticks out tongue? Yes 9:06:42 Airway obstruction? No ? 9:06:46 Dentures? Yes IN 9:06:58 Pre procedure: right dorsailis pedis pulse 1+ Palpable, but thready & weak; easily obliterated 9:07:00 Modified Valerio's test Ulnar < 7 seconds 9:07:01 Patient pain scale 0/10 ?. 9:07:06 IV patent on arrival in left forearm with 0.9% NaCl at O. 9:07:08 Lab results completed and on chart. 9:07:13 Right Radial & Right Groin area was prepped with chlora-prep and draped in sterile fashion 9:07:14 Alarms reviewed by R. N. 9:07:15 Sharps counted by scrub and verified by R.N. 9:10:45 Use device set Radial PCI 9:10:48 Tegaderm 4 x 4 opened to sterile field. 9:10:48 Acist Manifold opened to sterile field. 9:10:49 Acist Syringe opened to sterile field. 9:10:49 Acist Hand Control opened to sterile field. 9:10:50 Bag Decanter opened to sterile field. 9:10:50 Medline Cath Pack opened to sterile field. 9:10:51 Merit BasixCompak Inflation Kit opened to sterile field. 9:10:51 Terumo 6Fr Slender Glidesheath opened to sterile field. 9:10:51 MBrace Wrist Support opened to sterile field. 9:10:56 St Royce 260cm J .035 wire opened to sterile field. 9:17:29 Cordis 6FR XBLAD 4.0 guide catheter opened to sterile field. 9:26:41 --------ALL STOP TIME OUT------ 9:26:42 Final Timeout: patient, procedure, and site verified with staff and physician. All members of the team are in agreement. 9:26:44 Right Radial & Right Groin site verified by team. 9:26:47 Physical assessment completed. ASA score P 2 - A patient with mild systemic disease as per Greg Looney MD. 9:26:51 Sedation plan: IV Moderate Sedation Versed, Fentanyl 9:26:53 Versed 1 mg I.V. was administered by Ev Blancas RN; for sedation; 9::58 Fentanyl 50 mcg I.V. was administered by Ev Blancas RN; for sedation; 9:28:28 Procedure started. 9:28:37 Local anesthetic to right radial artery with Lidocaine 2% by Greg Looney MD.INITIAL ACCESS ONLY 9:28:50 Versed 1 mg I.V. was administered by Ev Blancas RN; for sedation; 9::53 Fentanyl 50 mcg I.V. was administered by Ev Blancas RN; for sedation; 9::54 A 6 Fr Short sheath was inserted into the Right Radial artery 9::58 Radial Cocktail (Verapomil 2mg/Nitro 400mcg/Heparin 1500units) 1 syringe I.A. was administered by Greg Looney MD; for vasodilation; 9:30:16 Fentanyl 25 mcg I.V. was administered by Ev Blancas RN; for sedation; 9:31:00 Versed 0.5 mg I.V. was administered by Ev Blancas RN; for sedation; 9:31:19 6 Fr XBLAD 4 guide catheter was inserted over the wire 9:31:26 Heparin Bolus 4000 units I.V. was administered by Ev Blancas RN; for anticoagulation; dose verified wtih dr looney 9:32:16 Barton Whisper J 300cm 0.014 guide wire opened to sterile field. 9:33:24 Whisper wire advanced. 9:34:17 Wire advanced across lesion. 9:35:53 Inflation number: 1 A [place] Unii Iredell 2.0 X 20 balloon was prepped and advanced across the Mid CX, then inflated to 15 MAVIS for 0:10 (min:sec). 9:36:15 Balloon removed over the wire. 9:38:13 Inflation Number: 2 A Promus Premier OTW 2.25 x 28 stent was prepped and advanced across the Mid CX. The stent was deployed at 11 MAVIS for 0:10 (min:sec). 9:41:09 Stent catheter was removed intact over wire. 9:41:17 Inflation Number: 3 A Promus Premier OTW 2.25 x 16 stent was prepped and advanced across the Mid CX. The stent was deployed at 11 MAVIS for 0:10 (min:sec). 9:41:19 Stent catheter was removed intact over wire. 9:41:20 Wire removed. 9:41:21 Guide catheter removed. 9:41:31 Terumo TR Band Standard opened to sterile field. 9:41:47 Sheath removed intact; hemostasis achieved with Mechanical Compression to the Right Radial artery. 9:41:49 Procedure ended.(Physican Out) 9:42:49 Fluoroscopy time 05.80 minutes. 9:42:53 Fluoroscopy dose: 636 mGy 9:42:53 Flurop Dose total: 636 9:43:02 Contrast amount:Isovue 300 73ml. 9:43:03 Sharps counted by scrub and verified by R.N. 9:43:06 TR band inflated with 10cc of air. 9:43:08 Insertion/operative site no bleeding no hematoma. 9:43:10 Post Procedure Pulses reassessed and unchanged 9:43:13 Post-procedure physical assessment completed. ASA score P 2 - A patient with mild systemic disease as per Greg Looney MD. 9:43:14 Post procedure rhythm: unchanged. 9:43:26 Estimated blood loss: 10 ml 9:43:28 Post procedure instruction explained to patient.Patient verbalizes understanding. 9:43:28 Patient needs reinforcement of post procedure teaching. 9:43:39 Procedure type changed to Cath procedure, PCI procedure, Coronary Stent Initial, Miscellaneous Procedures, Moderate Sedation up to 30 minutes 9:43:42 Procedure and supply charges have been captured, reviewed, submitted and are correct. 9:44:10 Procedure Complication : No complications 9:47:26 Vital chart was stopped 9:47:26 See physician's report for complete and final results. 9:47:28 Report given to Pre/Post Procedure Room. 9:47:32 Patient transfered to Pre/Post Procedure Room with Stretcher. 9:47:34 Procedure ended. 9:47:34 Full Disclosure recording stopped 9:47:39 End room use (Document Last) Intervention Summary Intervention Notes Time ActionType Lesion and Equipment Action# Pressure Duration Attributes Used 9:35:53 Inflate Mid CX [place] 1 15 00:10 balloon Sci Ired[place] 2.0 X 20 balloon 9:38:13 Place stent Mid CX Promus 2 11 00:10 Premier OTW 2.25 x 28 stent 9:41:17 Place stent Mid CX Promus 3 11 00:10 Premier OTW 2.25 x 16 stent Device Usage Item Name Manufacture Quantity Catalog Number Hospital Part Current Mini [facility] Lot# / Charge Number Stock Stock Serial# Code Tegade 4 1 7711 017481 750171 902962 5 x 4 Acist Acist 1 03881 934671 200916 927797 5 Manifold Medical Systems Inc Acist Acist 1 91318 663715 007258 935671 20 Syringe Medical Systems Inc Acist Hand Acist 1 99632 024528 310044 028727 5 Control Medical Systems Inc Bag Microtek 1 2002S 362990 75825 864327 5 Decanter Medical Inc. Medline Cardinal 1 [id number] 078183 73489 158268 5 Ligo[employer]te [employer] [facility] 1 [id number] 199955 235637 485322 15 Arrively Medical Inflation Kit Terumo 6Fr Terumo 1 [id number] 727548 181437 723207 40 Slender [facility] 1 140-0250-00 973202 63490 519972 5 Wrist Vascular Support [address] St Royce 1 081571 947261 120763 609480 30 260cm J .035 wire Cordis 6FR Cardinal 1 [id number] 459971 365115 253328 3 XBLAD 4.0 Health guide catheter Barton Barton 1 [id number] 087616 591998 542292 5 Whisper J Vascular 300cm 0.014 guide wire [place] Sci [place] 1 [id number] 540576 336922 311123 1 [id number] Iredell Scientific 2.0 X 20 balloon Promus [place] 1 [id number] 123127 913230 5 [id number] Premier OTW Scientific 2.25 x 28 stent Promus [place] 1 [id number] 633402 395572 5 [id number] Premier OTW Scientific 2.25 x 16 stent Terumo TR Terumo 1 [id number] 513351 878608 304128 40 Band Standard Signature Audit [place] Stage Time Signature Unsigned Intra-Procedure 10/12/2016 Vitor Banegas 9:47:57 AM RT(R) Signatures Monitor : Vitor Banegas RT Signature : Date : Time : [facility] [address] [place] [address]
[2016-10-12] MEDS ORDERED: MOBIC7.5 MG PO (07:56)
[2016-10-12 08:01] VITALS: BP 160/70; Ht 175.3 cm; Wt 92.7 kg
[2016-10-12 08:09] LABS: BASOPHILS 0.7 % (0-2); EOSINOPHILS 2.7 % (0-7); HEMATOCRIT 43.5 % (42.0-54.0); HEMOGLOBIN 14.8 g/dL (13.5-17.5); IMMATURE GRANULOCYTES 0.4 % (0-5); LYMPHOCYTES 22.8 % (15-50); MCH 29.1 pg (26.0-34.0); MCV 85.5 fL (80.0-100.0); MEAN PLATELET VOLUME 9.7 fL (7.4-10.4); MONOCYTES 8.5 % (2-11); NEUTROPHILS 64.9 % (40-80); PLATELET COUNT 285 10x3/uL (130-400); RBC 5.09 10x6/uL (4.20-6.10); RDW 13.1 % (11.5-14.5); WBC 7.5 10x3/uL (4.8-10.8)
[2016-10-12 08:42] LABS: ANION GAP 14.2 mmol/L (8-16); CALCIUM 9.3 mg/dL (8.5-10.1); CARBON DIOXIDE 27.7 mmol/L (21.0-32.0); CREATININE - SERUM 1.4 mg/dL (0.6-1.3); POTASSIUM - SERUM 3.9 mmol/L (3.5-5.1)
--- NOTE | 2016-10-12 10:08 | NUR ---
1010 SITTING UP IN BED EATING TURKEY SANDWICH. SON AT BEDSIDE. NSR RATE 62 WNO C/O CHEST PAIN. PULSES PALP X 4. R WRIST TR BAND C/D/I WITH NO HEMATOMA OR BLEEDING. DENIES NEEDS AT THIS TIME.
--- NOTE | 2016-10-12 13:51 | NUR ---
1040 RESTING WITH EYES OPEN, SON AT BEDSIDE. ALL VITALS WNL. ROOM AIR WITH NO DISTRESS. R WRIST TR BAND C/D/I WITH NO HEMATOMA OR BLEEEDING. 1200 ALL VITALS WNL. R WRIST TR BAND C/D/I. DENIES NEEDS AT THIS TIME. 1300 4CC AIR REMOVED FROM R WRIST TR BAND. WILL MONITOR FOR BLEEDING. 1315 4CC AIR REMOVED FROM R WRIST TR BAND. NO BLEEDING NOTED 1330 PIV REMOVED FROM L HAND WITH BANDAID APPLIED. TR BAND REMOVED. TEGADERM AND 2X2 APPLIED. BRACE REAPPLIED. 1345 UP TO BEDSIDE TO DRESS, D/C INSTRUCTIONS DISCUSSED WITH PATIENT AND FAMILY AT BEDSIDE. WHEELED OUT VIA WHEELCHAIR BY CATH TEAM.
== END 2016-10-12 13:56 | disposition home or self-care (01) ==
LOC: D.CATH 07:36
PROVIDERS: Internal Medicine Interventional Cardiology
DX: I25.119 Atherosclerotic heart disease of native coronary artery with unspecified angina pectoris (principal); Z95.5 Presence of coronary angioplasty implant and graft; I10 Essential (primary) hypertension; E78.5 Hyperlipidemia, unspecified

== ENCOUNTER 2016-11-26 09:45 | Outpatient (CLI) | payer MEDICARE ==
[~2016-11-26] VITALS: Ht 177.8 cm; Wt 92.7 kg
--- NOTE | ~2016-11-26 | HEMODYNAMI ---
PATIENT:ADRIAN RHODES MEDICAL RECORD: [id number] : 45 LOCATION:[facility] ADMISSION DATE: 11/26/16 Generatedon:11/26/201615:21 Patient name: ADRIAN RHODES Patient #: [id number] : 1945 Date of study: 11/26/2016 Page: Of Hemodynamic Procedure Report Patient Data Patient Demographics Procedure consent was obtained First Name: ADRIAN Gender: Male Last Name: CARMELO : 1945 Middle Initial: W Age: 71 year(s) Patient #: [id number] Race: SSN: [id number] Additional ID: [id number] Contact details Address: [address] [place] [address] State: [place] City: [place] Zip code: [address] Past Medical History Allergies Allergen Reaction Date Comments Reported Other allergy 10/05/2016 sulfa, rocephin Other allergy 10/06/2016 Sulfa Other allergy 11/26/2016 Rocephin, Sulfa Admission Admission Data Admission Date: 11/26/2016 Admission Time: 9:45 Admit Source: Other Height (in.): 70 BSA: 2.1 (m2) Height (cm.): 177.8 BMI: 29.27 (kg/m2) Weight (lbs.): 204 Weight (kg.): 92.53 Lab Results Lab Result Date: 11/26/2016 Lab Result Time: 11:15 Biochemistry Name Units Result Min Max BUN mg/dl 24 --(----)-* 7 18 Creatinine mg/dl 1.3 --(---*)-- 0.6 1.3 CBC Name Units Result Min Max Hematocrit % 35.4 *-(----)-- 42 54 Hemoglobin g/dl 12.1 *-(----)-- 13.5 17.5 Procedure Procedure Types Cath Procedure Diagnostic Procedure [facility] w/Coronaries FFR/IVUS Intra-Coronary IVUS Initial PCI Procedure Coronary Stent Initial x2 Miscellaneous Procedures Moderate Sedation up to 30 minutes Procedure Description Procedure Date Procedure Date: 11/26/2016 Procedure Start Time: 14:55 Procedure End Time: 15:19 Procedure Staff Name Function Greg Looney MD Performing Physician Toya Guerrero RT Scrub Kaylan Juarez RN Nurse El Rodgers RT Monitor Procedure Data Cath Procedure Fluoroscopy Diagnostic fluoroscopy Total fluoroscopy Time: 6.1 time: 6.1 min min Diagnostic fluoroscopy Total fluoroscopy dose: dose: 556.53 mGy 556.53 mGy Contrast Material Contrast Material Type Amount (ml) Isovue 300 112 Entry Location Entry Primary Successful Side Size Upsize Upsize Entry Closure Varner ccessful Closure Location (Fr) 1 (Fr) 2 (Fr) Remarks Device Remarks Radial Right 6 Fr Mechanical artery Short Compression Estimated blood loss: 10 ml Diagnostic catheters Device Type Used For End Catheter Placement Terumo 5Fr Pradip 110cm Procedure catheter Procedure Complications No complications Procedure Medications Medication Administration Route Dosage Oxygen NC 2 l/min Heparin Flush Bag added to field 2 bags (1000units/500ml NS) Lidocaine 2% added to field 20 Radial Cocktail added to field 1 syringe (Verapomil 2mg/Nitro 400mcg/Heparin 1500units) Fentanyl I.V. 50 mcg Versed I.V. 1 mg Radial Cocktail I.A. 1 syringe (Verapomil 2mg/Nitro 400mcg/Heparin 1500units) Fentanyl I.V. 50 mcg Versed I.V. 1 mg Heparin Bolus I.V. 4000 units Hemodynamics Rest BSA: 2.1 (m2) HGB: 12.1 (g/dl) O2 Consumption: Estimated: 229.42 (ml/min) O2 Con sumption indexed: Estimated:109.25 (ml/min/m) Heart Rate: 53 (bpm) Snapshots Pre Cath Intra NCS Post Cath Vital Signs Time Heart Resp SPO2 NIBP (mmHg) Rhythm Pain Sedation Rate (ipm) (%) Status Level (bpm) 14:24:53 53 18 92 168/75(148) NSR 0 (11) 10(A) , No pain 14:29:19 55 18 94 171/83(152) NSR 0 (11) 10(A) , No pain 14:33:47 51 17 91 157/78(138) NSR 0 (11) 10(A) , No pain 14:39:15 51 19 95 156/73(136) NSR 0 (11) 10(A) , No pain 14:43:45 51 16 94 161/73(140) NSR 0 (11) 9(A) , No pain 14:48:14 49 19 93 159/78(129) NSR 0 (11) 9(A) , No pain 14:53:37 51 16 95 161/75(135) NSR 0 (11) 9(A) , No pain 14:57:55 57 16 93 134/70(105) NSR 0 (11) 9(A) , No pain 15:02:16 63 18 92 153/80(109) NSR 0 (11) 9(A) , No pain 15:06:42 61 17 94 161/84(140) NSR 0 (11) 9(A) , No pain 15:11:04 62 16 96 155/84(126) NSR 0 (11) 9(A) , No pain 15:15:32 56 14 92 172/82(142) NSR 0 (11) 9(A) , No pain 15:20:05 No Cuff NSR 0 (11) 9(A) , No pain Medications Time Medication Route Dose Verified Delivered Reason Note s Effectiveness by by 14:23:03 Oxygen NC 2 l/min Kaylan Kaylan used for Juarez Juarez perinatal tech RN 14:23:11 Heparin Flush added 2 bags Kaylan Kaylan used for Bag to Juarez Juarez procedure (1000units/500ml field RN RN NS) 14:23:18 Lidocaine 2% added 20ml Kaylan Kaylan used for to vial Juarez Juarez procedure field RN RN 14:23:26 Radial Cocktail added 1 Kaylan Kaylan used for (Verapomil to syringe Juarez Juarez procedure 2mg/Nitro field RN RN 400mcg/Heparin 1500units) 14:54:37 Fentanyl I.V. 50 mcg Kaylan Kaylan for sedation Juarez Juarez RN RN 14:54:44 Versed I.V. 1 mg Kaylan Kaylan for sedation Juarez Juarez RN RN 14:56:06 Radial Cocktail I.A. 1 Kaylan Greg for (Verapomil syringe Juarez Aayush mckenzie 2mg/Nitro RN 400mcg/Heparin 1500units) 14:56:13 Fentanyl I.V. 50 mcg Kaylan Kimbrough for sedation Larry Juarez RN RN 14:56:19 Versed I.V. 1 mg Kaylan Kaylan for sedation Larry Juarez RN RN 15:04:44 Heparin Bolus I.V. 4000 Kaylan Kaylan for units Larry Juarez anticoagulation RN range mechanic Log Time Note 14:: Toya Guerrero RT(R) sent for patient. Start room use. 14::29 Time tracking: Regular hours 14:04:33 Plan of Care:Hemodynamics will remain stable., Cardiac rhythm will remain stable., Comfort level will be maintained., Respiratory function will remain adequate., Patient/ family verbilizes understanding of procedure., Procedure tolerated without complication., Recovers from procedure without complications.. 14:11:48 Patient received from Pre/Post Procedure Room to [facility] 3 Alert and oriented. Tansferred to table in Supine position. 14:11:48 Warm blankets applied, and china hugger turned on for patient comfort. 14:11:49 Correct patient and procedure confirmed by team. 14:11:50 Signed procedure consent form obtained from patient. 14:11:51 ECG and BP/O2 sat monitors applied to patient. 14:23:03 Oxygen 2 l/min NC was administered by Kaylan Juarez RN; used for procedure; 14:23:11 Heparin Flush Bag (1000units/500ml NS) 2 bags added to field was administered by Kaylan Juarez RN; used for procedure; 14:23:18 Lidocaine 2% 20ml vial added to field was administered by Kaylan Juarez RN; used for procedure; 14:23:26 Radial Cocktail (Verapomil 2mg/Nitro 400mcg/Heparin 1500units) 1 syringe added to field was administered by Kaylan Juarez RN; used for procedure; 14:23:32 Vital chart was started 14:27:35 Baseline sample Acquired. 14:27:39 Rhythm: sinus rhythm 14:27:47 H&P Date Dictated: 11/25/2016 Within 30 days and on chart., H&P Addendum completed by physician on day of procedure. (MUST COMPLETE FOR ALL OUTPATIENTS). 14:27:48 Pre-procedure instructions explained to patient. 14:27:48 Pre-op teaching completed and patient verbalized understanding. 14:27:49 Family in waiting room. 14:27:50 Patient NPO since Midnight. 14:28:02 Patient allergic to Other allergyRocephin, Sulfa 14:28:05 Is the patient allergic to Iodine/contrast media? No. 14:28:05 Is patient on blood thinner?Yes 14:28:10 ACC The patient was administered the following blood thiners within the last 24 hours: ACCPlavix 14:28:12 Patient diabetic? No. 14:28:14 Previous problem with sedation/anesthesia? No ? 14:28:15 Snore? Yes 14:28:15 Sleep apnea? No 14:28:16 Deviated septum? No 14:28:17 Opens mouth fully? Yes 14:28:17 Sticks out tongue? Yes 14:28:19 Airway obstruction? No ? 14:28:21 Dentures? Yes in tight 14:28:24 Modified Valerio's test Ulnar < 7 seconds 14:28:26 Patient pain scale 0/10 ?. 14:28:30 IV patent on arrival in left hand with 0.9% NaCl at [facility]. 14:30:07 Lab Result : BUN 24 mg/dl 14:30:08 Lab Result : Hemoglobin 12.1 g/dl 14:30:08 Lab Result : Creatinine 1.3 mg/dl 14:30:08 Lab Result : Hematocrit 35.4 % 14:30:11 Lab results completed and on chart. 14:30:13 Right Radial & Right Groin area was prepped with chlora-prep and draped in sterile fashion 14:30:14 Alarms reviewed by R. N. 14:30:14 Sharps counted by scrub and verified by R.N. 14:30:18 Use device set Radial Dx 14:30:19 MBrace Wrist Support opened to sterile field. 14:30:20 Acist Manifold opened to sterile field. 14:30:20 Acist Hand Control opened to sterile field. 14:30:21 Acist Syringe opened to sterile field. 14:30:21 Medline Cath Pack opened to sterile field. 14:30:22 Bag Decanter opened to sterile field. 14:30:23 Tegaderm 4 x 4 opened to sterile field. 14:30:23 Terumo 6Fr Slender Glidesheath opened to sterile field. 14:30:24 St Royce 260cm J .035 wire opened to sterile field. 14:30:39 Patient Height : 177.8 cm 14:30:44 Patient Weight : 92.53 kg 14::44 Admit Source: Other 14:35:09 Zero performed for pressure channel P1 14:42:10 Physician arrived 14:42:10 --------ALL STOP TIME OUT------ 14:42:11 Final Timeout: patient, procedure, and site verified with staff and physician. All members of the team are in agreement. 14:42:12 Right Radial & Right Groin site verified by team. 14:42:16 Physical assessment completed. ASA score P 2 - A patient with mild systemic disease as per Greg Looney MD. 14:42:18 Sedation plan: IV Moderate Sedation Versed, Fentanyl 14:54:37 Fentanyl 50 mcg I.V. was administered by Kaylan Juarez RN; for sedation; 14:54:44 Versed 1 mg I.V. was administered by Kaylan Juarez RN; for sedation; 14:55:01 Procedure started. 14:55:01 Full Disclosure recording started 14:55:07 Local anesthetic to right radial artery with Lidocaine 2% by Greg Looney MD.INITIAL ACCESS ONLY 14:55:14 A 6 Fr Short sheath was inserted into the Right Radial artery 14:56:06 Radial Cocktail (Verapomil 2mg/Nitro 400mcg/Heparin 1500units) 1 syringe I.A. was administered by Greg Looney MD; for vasodilation; 14:56:13 Fentanyl 50 mcg I.V. was administered by Kaylan Juarez RN; for sedation; 14:56:19 Versed 1 mg I.V. was administered by Kaylan Juarez RN; for sedation; 14:56:25 A Terumo 5Fr Pradip 110cm catheter was advanced over the wire and used for Procedure. 14:56:30 LV gram done using MOSES 14:56:33 Injector settings: Ml/sec: 5, Volume: 15, 14:56:49 EF : 50 % 14:56:52 LCA angiography performed. 14:58:28 RCA angiography performed. 14:59:15 [place] IVUS Catheter opened to sterile field. 14:59:16 [place] Whisper J 300cm 0.014 guide wire opened to sterile field. 14:59:16 Merit BasixCompak Inflation Kit opened to sterile field. 14:59:19 Catheter removed. 15:02:02 Medtronic Launcher 6Fr AR 2.0 guide catheter opened to sterile field. 15:02:10 6 Fr ar 2 guide catheter was inserted over the wire 15:02:13 whisper wire advanced. 15:02:20 Wire advanced across lesion. 15:02:23 IVUS catheter advanced over wire. 15:02:53 IVUS pass to RCA lesion performed. 15:03:38 IVUS catheter removed over wire. 15:04:44 Heparin Bolus 4000 units I.V. was administered by Kaylan Juarez RN; for anticoagulation; 15:05:41 Inflation Number: 1 A Medtronic Integrity 3.5 X 18 stent was prepped and advanced across the Mid RCA. The stent was deployed at 17 MAVIS for 0:10 (min:sec). 15:06:10 Stent catheter was removed intact over wire. 15:06:11 Wire removed. 15:06:13 Guide catheter removed. 15:07:11 Cordis 6FR XB 3.5 guide catheter opened to sterile field. 15:07:37 6 Fr XB 3.5 guide catheter was inserted over the wire 15:08:41 WHISPER wire advanced. 15:08:43 Wire advanced across lesion. 15:08:49 IVUS catheter advanced over wire. 15:11:19 IVUS pass to LAD lesion performed. 15:11:20 IVUS catheter removed over wire. 15:11:43 Inflation Number: 1 A Medtronic Resolute 3.0 X 30 stent was prepped and advanced across the Mid LAD. The stent was deployed at 17 MAVIS for 0:10 (min:sec). 15:12:02 Stent catheter was removed intact over wire. 15:12:03 Wire removed. 15:12:03 Guide catheter removed. 15:12:41 Terumo TR Band Standard opened to sterile field. 15:12:53 Sheath removed intact; hemostasis achieved with Mechanical Compression to the Right Radial artery. 15:12:56 Procedure ended.(Physican Out) 15:14:54 Fluoroscopy time 06.10 minutes. 15:15:00 Flurop Dose total: 556.53 15:15:00 Fluoroscopy dose: 556.53 mGy 15:15:03 Contrast amount:Isovue 300 112ml. 15:15:06 Sharps counted by scrub and verified by R.N. 15:15:10 TR band inflated with 14cc of air. 15:15:13 Insertion/operative site no bleeding no hematoma. 15:15:19 Post right radial artery:stable, soft, clean and dry 15:15:20 Post Procedure Pulses reassessed and unchanged 15:15:23 Post-procedure physical assessment completed. ASA score P 2 - A patient with mild systemic disease as per Greg Looney MD. 15:15:26 Post procedure rhythm: unchanged. 15:15:31 Estimated blood loss: 10 ml 15:15:33 Post procedure instruction explained to patient.Patient verbalizes understanding. 15:15:33 Patient needs reinforcement of post procedure teaching. 15:16:06 Procedure type changed to Cath procedure, Diagnostic procedure, LHC, LHC w/Coronaries, FFR/IVUS, Intra-Coronary IVUS Initial, PCI procedure, Coronary Stent Initial x2, Miscellaneous Procedures, Moderate Sedation up to 30 minutes 15:19:02 Procedure and supply charges have been captured, reviewed, submitted and are correct. 15:19:05 Procedure Complication : No complications 15:19:07 Vital chart was stopped 15:19:07 See physician's report for complete and final results. 15:19:11 Report given to Pre/Post Procedure Room. 15:19:13 Patient transfered to Pre/Post Procedure Room with Stretcher. 15:19:16 Procedure ended. 15:19:16 Full Disclosure recording stopped 15:19:24 End room use (Document Last) Intervention Summary Intervention Notes Time ActionType Lesion and Equipment Action# Pressure Duration Attributes Used 15:05:41 Place stent Mid RCA Medtronic 1 17 00:10 Integrity 3.5 X 18 stent 15:11:43 Place stent Mid LAD Medtronic 1 17 00:10 Resolute 3.0 X 30 stent Device Usage Item Name Manufacture Quantity Catalog Hospital Part Current Minimal Lot# / Number Charge Number Stock Stock Serial# Code [facility] 1 140-0250-00 088193 37567 283770 5 Wrist Vascular Support Dynamics Acist Acist 1 87601 714077 165097 169438 5 Equinext Acist Hand Acist 1 74942 042085 828702 464229 5 Flavours Acist Acist 1 65475 786384 159627 278701 20 Syringe Medical Systems Inc Medline Cardinal 1 [id number] 382623 47843 780913 5 Cath Pack Health Bag Microtek 1 2002S 544340 46814 376268 5 Decanter Medical Inc. Tegaderm 4 3M 1 1626W 173008 143002 871890 5 x 4 Terumo 6Fr Terumo 1 [id number] 960345 981979 557108 [address] St Royce 1 796562 497503 764172 749346 30 260cm J .035 wire Terumo 5Fr Terumo 1 63-4101 718463 791025 947228 5 Pradip 110cm catheter [place] 1 [id number] 295061 249500 796770 8 [place] IVUS Catheter Barton [place] 1 [id number] 186603 912267 587655 5 Whisper J Vascular 300cm 0.014 guide wire Merit Merit 1 [id number] 300457 667826 668075 15 [facility] Inflation Kit Medtronic Medtronic 1 [id number] 963933 91723 736753 1 Launcher 6Fr AR 2.0 guide catheter Medtronic Medtronic 1 [id number] 678915 755331 4 [id number] Integrity 3.5 X 18 stent Cordis 6FR Cardinal 1 [id number] 681586 088978 100926 2 XB 3.5 Health guide catheter Medtronic Medtronic 1 [id number] 190849 697547 7 [id number] Resolute 3.0 X 30 stent Terumo TR Terumo 1 [id number] 248219 979810 748047 40 Band Standard Signature Audit [employer] Stage Time Signature Unsigned Intra-Procedure 11/26/2016 El Rodgers 3:21:28 PM RT(R) Signatures Monitor : El Rodgers RT Signature : Date : Time : [facility] [address] [place] [address]
[~2016-11-26 09:45] MED LIST changes: +MOBIC7.5 MG PO
[2016-11-26] MEDS ORDERED: CATAPRES0.1 MG PO (10:55)
[2016-11-26] MEDS ORDERED: NIFEDIPINE ER60 MG PO (10:56)
[2016-11-26] MEDS ORDERED: CARDURA4 MG PO (10:57)
[2016-11-26 11:00] VITALS: BP 169/70; Ht 177.8 cm; Wt 92.7 kg
[2016-11-26 11:41] LABS: BASOPHILS 0.4 % (0-2); EOSINOPHILS 3.2 % (0-7); HEMATOCRIT 35.4 % (42.0-54.0); HEMOGLOBIN 12.1 g/dL (13.5-17.5); IMMATURE GRANULOCYTES 0.2 % (0-5); LYMPHOCYTES 25.6 % (15-50); MCHC 34.2 g/dL (31.0-37.0); MCV 87.8 fL (80.0-100.0); MEAN PLATELET VOLUME 9.6 fL (7.4-10.4); MONOCYTES 7.7 % (2-11); NEUTROPHILS 62.9 % (40-80); PLATELET COUNT 278 10x3/uL (130-400); RBC 4.03 10x6/uL (4.20-6.10); RDW 13.4 % (11.5-14.5)
[2016-11-26 11:53] LABS: ANION GAP 14.7 mmol/L (8-16); CARBON DIOXIDE 26.8 mmol/L (21.0-32.0); CREATININE - SERUM 1.3 mg/dL (0.6-1.3); POTASSIUM - SERUM 4.5 mmol/L (3.5-5.1)
--- NOTE | 2016-11-26 15:45 | NUR ---
TR BAND TO RIGHT WRIST- CDI, NO BLEEDING AT SITE
--- NOTE | 2016-11-26 16:15 | NUR ---
TR BAND TO RIGHT WRIST -CDI, NO BLEEDING NOTED AT SITE
--- NOTE | 2016-11-26 19:30 | NUR ---
IV D'C WITH CATH TIP INTACT, WRITTEN AND VERBAL INSTRUCTIONS GIVEN TO PT AND FAMILY. GETTING DRESSED, DENIES FURTHUR NEEDS
--- NOTE | 2016-11-29 10:11 | OP ---
PATIENT NAME: ADRIAN RHODES MEDICAL RECORD: [id number] :45 LOCATION:D.CAT ADMISSION DATE: SURGEON: YINA ALLISON MD DATE OF OPERATION: 11/26/2016 PROCEDURES: 1. PTCA stent LAD. 2. PTCA stent RCA. 3. Intravascular ultrasound of LAD. 4. Intravascular ultrasound of RCA. 5. Left heart catheterization. 6. Selective coronary angiography. 7. Left ventriculogram. INDICATION: Angina and coronary artery disease. PROCEDURE: After informed consent was obtained and after detailed explanation of risks, benefits as well as alternative therapies, the patient elected to proceed with angiogram and angioplasty. The right femoral area was prepped and draped in normal sterile fashion. The right femoral artery was cannulated via modified Seldinger technique with placement of 6-[place] sheath. All catheters exchanged through this sheath. FINDINGS: The left ventriculogram was performed in the standard 30-degree MOSES view reveals good cardiac wall motion throughout all segments. Overall ejection fraction estimated at 60%. SELECTIVE CORONARY ANGIOGRAPHY: 1. Left main showed no significant angiographic disease. 2. Left anterior descending has previously placed stent in the mid vessel, it is widely patent; however, intravascular ultrasound reveals a 75-80% stenosis proximal to this. 3. Left circumflex shows moderate irregularities, but no flow-limiting stenosis. 4. The right coronary has previously placed stents, but proximal to the stents, intravascular ultrasound confirmed that there is 80% stenosis ____. PTCA STENT OF RCA AND LAD: RCA was addressed with a 3.5 x 18 mm Integrity and the LAD with a 3.0 x 30 mm Resolute. Result was 0% residual stenosis. OVERALL IMPRESSION: Successful percutaneous transluminal coronary angioplasty stent of the right coronary artery and left anterior descending, both going from 80% initial stenosis to 0% residual. TRANSINT:[id number] Voice Confirmation ID: [id number] DOCUMENT ID: [id number] YINA ALLISON MD at 1011 CC: [id number] DICTATION DATE: 11/26/16 1516 TELEPHONE LINEWORKER: 11/26/16 2358 DEP CLI 11/26/16 [place] [address]
== END 2016-11-26 19:40 | disposition home or self-care (01) ==
LOC: D.CATH 09:45
PROVIDERS: Internal Medicine Interventional Cardiology
DX: I25.119 Atherosclerotic heart disease of native coronary artery with unspecified angina pectoris (principal); I10 Essential (primary) hypertension; R06.09 Other forms of dyspnea; E78.5 Hyperlipidemia, unspecified; F17.200 Nicotine dependence, unspecified, uncomplicated; Z01.812 Encounter for preprocedural laboratory examination
CPT/HCPCS: 92928; 93458; 92978; 92979; C9600

== ENCOUNTER 2017-08-23 15:20 | Emergency (ER) | payer MEDICARE ==
[2016-11-26 11:00] VITALS: BMI 29.3
[~2017-08-23 15:20] MED LIST changes: +CARDURA4 MG PO; +CATAPRES0.2 MG PO; +NIFEDIPINE ER90 MG PO
[2017-09-16] MEDS ORDERED: METOPROLOL TART50 MG PO (11:09)
== END 2017-08-23 18:00 | disposition home or self-care (01) ==
LOC: D.ER 15:20
DX: S80.02XA Contusion of left knee, initial encounter (principal); W19.XXXA Unspecified fall, initial encounter; Y93.89 Activity, other specified; Y92.018 Other place in single-family (private) house as the place of occurrence of the external cause; M19.90 Unspecified osteoarthritis, unspecified site; I10 Essential (primary) hypertension; F17.200 Nicotine dependence, unspecified, uncomplicated

== ENCOUNTER 2017-09-19 08:00 | Day surgery (SDC) | payer MEDICARE ==
[2017-09-16 11:58] LABS: ANION GAP 15.5 mmol/L (8-16); CARBON DIOXIDE 24.8 mmol/L (21.0-32.0); CREATININE - SERUM 1.7 mg/dL (0.6-1.3); POTASSIUM - SERUM 4.3 mmol/L (3.5-5.1)
[2017-09-16 12:19] LABS: HEMATOCRIT 39.8 % (42.0-54.0); HEMOGLOBIN 13.9 g/dL (13.5-17.5); MCH 30.1 pg (26.0-34.0); MCHC 34.9 g/dL (31.0-37.0); MCV 86.1 fL (80.0-100.0); MEAN PLATELET VOLUME 9.8 fL (7.4-10.4); RBC 4.62 10x6/uL (4.20-6.10); RDW 13.5 % (11.5-14.5)
[~2017-09-19] VITALS: Ht 175.3 cm; Wt 88.5 kg
--- NOTE | ~2017-09-19 | OP ---
PATIENT NAME: ADRIAN RHODES MEDICAL RECORD: [id number] :45 LOCATION:D.OPS ADMISSION DATE: SURGEON: VAN OREILLY MD DATE OF OPERATION: 09/19/2017 PREOPERATIVE DIAGNOSIS: Prolonged residual prepatellar hematoma. POSTOPERATIVE DIAGNOSIS: Prolonged residual prepatellar hematoma. PROCEDURE: Evacuation of a very large prepatellar hematoma in 2 different segments. SURGEON: Van Oreilly MD ANESTHESIA: General. INTRAOPERATIVE COMPLICATIONS: None. SUMMARY OF PATHOLOGIC FINDINGS: As predicted in the preoperative exam, the patient had 2 large pockets of the preoperative hematoma. The patient has a history of taking Plavix and fell and after approximately 4 weeks, this had not gone down and was very painful for him. Decision was made to hold his Plavix and try to get this hematoma evacuated and emptied. OPERATIVE SUMMARY IN DETAIL: After obtaining the appropriate preoperative orthopedic surgery consent as well as anesthetic consultation, evaluation and clearance, the patient was brought to the operating room and placed on the operating table in supine position. After general laryngeal mask airway was administered, tourniquet was placed on the proximal aspect of the left lower extremity. Note, tourniquet was not used during this case. The upper lateral hematoma was approached first. A small incision was made, through which approximately 100 to 150 cc of coagulated hematoma was evacuated. It was copiously irrigated and lavaged as well as suctioned to remove all hematoma. Next, the secondary prepatellar bursa was approached. A small linear opening was present, so in line with this a small incision was made and again approximately 200 cc of hematoma was expressed. Again, this was lavaged copiously as well as suctioned to eradicate all hematoma from the area. The patient was given preoperative vancomycin. Having completed this, the wounds were closed using 2-0 Prolene in a [id number] fashion to try and seal them adequately. Pressure dressings were then applied. Having completed this, the patient was awakened and taken to the recovery room in stable condition. All final needle and sponge count was correct. TRANSINT:[id number] Voice Confirmation ID: [id number] DOCUMENT ID: [id number] VAN OREILLY MD at 1521 CC: [id number] DICTATION DATE: 09/19/17 1205 TRACK LABORER: 09/19/17 1441 [facility] SDC 09/19/[address] [place] [id number] [facility]901
[~2017-09-19 08:00] MED LIST changes: +METOPROLOL TART50 MG PO
[2017-09-19] MEDS ORDERED: NORCO 7.5/325 T1 TA1 PO (08:32)
[2017-09-19 08:45] VITALS: BP 144/78; Ht 175.3 cm; Wt 88.5 kg
[2017-09-19] MEDS ORDERED: HYDROCODONE-APA1 TAB PO (11:58)
[2017-09-19] MEDS ORDERED: LEVAQUIN500 MG PO (11:59)
== END 2017-09-19 13:45 | disposition home or self-care (01) ==
LOC: D.OPS 08:00 → D.PAN 08:45 → D.OPS 08:45
PROVIDERS: Anesthesiology
DX: S80.02XA Contusion of left knee, initial encounter (principal); F17.200 Nicotine dependence, unspecified, uncomplicated; I25.10 Atherosclerotic heart disease of native coronary artery without angina pectoris; I10 Essential (primary) hypertension; I48.91 Unspecified atrial fibrillation; Z95.5 Presence of coronary angioplasty implant and graft; Z01.812 Encounter for preprocedural laboratory examination

== ENCOUNTER → 2017-10-25 08:25 | Outpatient (CLI) | payer MEDICARE ==
[2017-09-19 08:45] VITALS: BMI 28.8
[~2017-10-25 08:25] MED LIST changes: +HYDROCODONE-APA1 TAB PO; +LEVAQUIN500 MG PO; +NORCO 7.5/325 T1 TA1 PO
== END | disposition home or self-care (01) ==
LOC: D.CT 08:25
DX: R22.42 Localized swelling, mass and lump, left lower limb (principal)

== ENCOUNTER → 2018-05-26 07:23 | Outpatient (CLI) | payer MEDICARE ==
[~2018-05-26] VITALS: Ht 175.3 cm; Wt 85.0 kg
--- NOTE | ~2018-05-26 | HEMODYNAMI ---
PATIENT:ADRIAN RHODES MEDICAL RECORD: [id number] : 45 LOCATION:DRonelCAT ADMISSION DATE: 05/26/18 Generatedon:05/26/20189:46 Patient name: ADRIAN RHODES Patient #: [id number] : 1945 Date of study: 05/26/2018 Page: Of Hemodynamic Procedure Report Patient Data Patient Demographics Procedure consent was obtained First Name: ADRIAN Gender: Male Last Name: CARMELO : 1945 Middle Initial: W Age: 72 year(s) Patient #: [id number] Race: SSN: [id number] Additional ID: [id number] Contact details Address: [address] [place] [address] State: [place] City: [place] Zip code: [address] Past Medical History Allergies Allergen Reaction Date Comments Reported Other allergy 10/05/2016 sulfa, rocephin Other allergy 10/06/2016 Sulfa Other allergy 11/26/2016 Rocephin, Sulfa Other allergy 05/26/2018 SULFA, ROCEPHIN Admission Admission Data Admission Date: 05/26/2018 Admission Time: 7:23 Height (in.): 70 BSA: 2.05 (m2) Height (cm.): 177.8 BMI: 27.41 (kg/m2) Weight (lbs.): 191 Weight (kg.): 86.64 Lab Results Lab Result Date: 05/26/2018 Lab Result Time: 0:00 Biochemistry Name Units Result Min Max BUN mg/dl 39 --(----)-* 7 18 Creatinine mg/dl 2.1 --(----)-* 0.6 1.3 CBC Name Units Result Min Max Hemoglobin g/dl 15.3 --(-*--)-- 13.5 17.5 Procedure Procedure Types Cath Procedure Diagnostic Procedure LHC LHC w/Coronaries Sedation Charges Moderate Sedation up to 15 minutes Peripheral Cath Diagnostic Procedure C Software Developer Peripheral Procedures Kczdx-Cknjvbw-Btc-Off Procedure Description Procedure Date Procedure Date: 05/26/2018 Procedure Start Time: 9:20 Procedure End Time: 9:42 Procedure Staff Name Function Greg Looney MD Performing Physician Humaira Atkins RT Monitor El Rodgers RT Scrub Brenda Olivo RN Nurse Procedure Data Cath Procedure Fluoroscopy Diagnostic fluoroscopy Total fluoroscopy Time: 2 time: 2 min min Diagnostic fluoroscopy Total fluoroscopy dose: 568 dose: 568 mGy mGy Contrast Material Contrast Material Type Amount (ml) Isovue 300 103 Entry Location Entry Primary Successful Side Size Upsize Upsize Entry Closure Succes sful Closure Location (Fr) 1 (Fr) 2 (Fr) Remarks Device Remarks Femoral Right 5 Fr Exoseal artery Estimated blood loss: 10 ml Diagnostic catheters Device Type Used For End Catheter Placement MULTIPACK 3DRC 5Fr Procedure catheter MULTIPACK JL 4.0 5Fr Procedure catheter MULTIPACK Pigtail 5 Fr Procedure catheter Procedure Complications No complications Procedure Medications Medication Administration Route Dosage 0.9% NaCl I.V. 100 ml/hr Oxygen etCO2 Nasal cannula 2 l/min Lidocaine 2% added to field 20 Heparin Flush Bag added to field 2 bags (1000units/500ml NS) Radial Cocktail added to field 1 syringe (Verapomil 2mg/Nitro 400mcg/Heparin 1500units) Versed I.V. 2 mg Fentanyl I.V. 100 mcg Versed I.V. 2 mg Versed I.V. 1 mg Hemodynamics Rest BSA: 2.05 (m2) HGB: 15.3 (g/dl) O2 Consumption: Estimated: 235.92 (ml/min) O2 Co nsumption indexed: Estimated:115.08 (ml/min/m) Heart Rate: 69 (bpm) Snapshots Pre Cath Intra NCS Post Cath Vital Signs Time Heart Resp SPO2 etCO2 NIBP (mmHg) Rhythm Pain Sedation Rate (ipm) (%) (mmHg) Status Level (bpm) 8:54:19 77 21 96 19 159/89(142) NSR 0 (11) 10(A) , No pain 8:58:43 71 25 97 20.1 144/104(128) NSR 0 (11) 10(A) , No pain 9:03:01 71 23 98 24.4 159/96(125) NSR 0 (11) 10(A) , No pain 9:08:08 72 19 96 20 169/99(134) NSR 0 (11) 10(A) , No pain 9:12:31 69 16 96 20 169/103(142) NSR 0 (11) 10(A) , No pain 9:16:53 72 20 99 21.6 156/98(136) NSR 0 (11) 10(A) , No pain 9:21:17 73 39 100 20 163/106(137) NSR 0 (11) 10(A) , No pain 9:25:39 90 21 98 27.6 159/111(141) NSR 0 (11) 10(A) , No pain 9:30:05 92 19 98 20 174/82(132) NSR 0 (11) 9(A) , No pain 9:34:36 72 13 99 23.7 169/93(151) NSR 0 (11) 9(A) , No pain 9:38:58 71 15 99 20 149/88(129) NSR 0 (11) 9(A) , No pain Medications Time Medication Route Dose Verified Delivered Reason Notes Ef fectiveness by by 8:53:18 0.9% NaCl I.V. 100 Greg Brenda used for ml/hr Aayush Olivo product inspection supervisor 8:53:24 Oxygen etCO2 2 l/min Greg Brenda used for Nasal Aayush Olivo procedure cannula RN 8:53:30 Lidocaine 2% added 20ml Greg Garza for local to vial Aayush Looney MD anesthetic field 8:53:36 Heparin Flush added 2 bags Greg Garza used for Bag to Aayush Looney MD procedure (1000units/500ml field NS) 8:53:42 Radial Cocktail added 1 Gregedwige Garza used for (Verapomil to syringe Aayush Looney MD procedure 2mg/Nitro field 400mcg/Heparin 1500units) 9:15:06 Versed I.V. 2 mg Greg Brenda for Aayush Olivo sedation RN 9:15:19 Fentanyl I.V. 100 mcg Greg Brenda for Aayush Olivo sedation RN 9:20:43 Versed I.V. 2 mg Greg Brenda for Aayush Olivo sedation RN 9:25:43 Versed I.V. 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 Start room use. 8:41:11 Time tracking: Regular hours (M-F 7:00 - 5:00) 8:41:16 Plan of Care:Hemodynamics will remain stable., Cardiac rhythm will remain stable., Comfort level will be maintained., Respiratory function will remain adequate., Patient/ family verbilizes understanding of procedure., Procedure tolerated without complication., Recovers from procedure without complications.. 8:43:56 Patient allergic to Other allergySULFA, ROCEPHIN 8:45:38 Patient Height : 70 inches 8:45:43 Patient Weight : 191 lbs 8:48:14 Patient received from Pre/Post Procedure Room to CCL 1 Alert and oriented. Tansferred to table in Supine position. 8:48:16 Warm blankets applied, and china hugger turned on for patient comfort. 8:48:16 Correct patient and procedure confirmed by team. 8:48:18 Signed procedure consent form obtained from patient. 8:48:19 ECG and BP/O2 sat monitors applied to patient. 8:53:07 Vital chart was started 8:53:18 0.9% NaCl 100 ml/hr I.V. was administered by Brenda Olivo RN; used for procedure; 8:53:24 Oxygen 2 l/min etCO2 Nasal cannula was administered by Brenda Olivo RN; used for procedure; 8:53:30 Lidocaine 2% 20ml vial added to field was administered by Greg Looney MD; for local anesthetic; 8:53:36 Heparin Flush Bag (1000units/500ml NS) 2 bags added to field was administered by Greg Looney MD; used for procedure; 8:53:42 Radial Cocktail (Verapomil 2mg/Nitro 400mcg/Heparin 1500units) 1 syringe added to field was administered by Greg Looney MD; used for procedure; 8:57:39 Baseline sample Acquired. 8:57:44 Rhythm: atrial fibrillation 8:57:45 Full Disclosure recording started 8:57:52 H&P Date Dictated: 05/24/2018 Within 30 days and on chart., H&P Addendum completed by physician on day of procedure. (MUST COMPLETE FOR ALL OUTPATIENTS). 8:57:53 Pre-procedure instructions explained to patient. 8:57:53 Pre-op teaching completed and patient verbalized understanding. 8:57:54 Family in patients room. 8:57:56 Patient NPO since Midnight. 8:57:59 Is patient on blood thinner?Yes 8:58:01 ACC The patient was administered the following blood thiners within the last 24 hours: ACCPlavix 8:58:03 Patient diabetic? No. 8:58:06 Previous problem with sedation/anesthesia? No ? 8:58:07 Snore? Yes 8:58:07 Sleep apnea? No 8:58:08 Deviated septum? No 8:58:09 Opens mouth fully? Yes 8:58:09 Sticks out tongue? Yes 8:58:13 Dentures? No ? 8:58:24 Modified Valerio's test Ulnar < 7 seconds 8:58:26 Patient pain scale 0/10 ?. 8:58:39 IV patent on arrival in left forearm with 0.9% NaCl at [facility]. 8:58:49 Right Radial & Right Groin area was prepped with chlora-prep and draped in sterile fashion 8:58:50 Alarms reviewed by R. N. 8:58:50 Sharps counted by scrub and verified by R.N. 9:00:31 Lab Result : BUN 39 mg/dl 9:00:31 Lab Result : Creatinine 2.1 mg/dl 9:00:31 Lab Result : Hemoglobin 15.3 g/dl 9:00:56 Lab results completed and on chart. 9:13:47 Zero performed for pressure channel P1 9:14:10 --------ALL STOP TIME OUT------ 9:14:10 Final Timeout: patient, procedure, and site verified with staff and physician. All members of the team are in agreement. 9:14:12 Right Radial & Right Groin site verified by team. 9:14:15 Physical assessment completed. ASA score P 2 - A patient with mild systemic disease as per Greg Looney MD. 9:14:18 Sedation plan: IV Moderate Sedation Medication:Versed, Fentanyl 9:15:06 Versed 2 mg I.V. was administered by Brenda Olivo RN; for sedation; 9:15:19 Fentanyl 100 mcg I.V. was administered by Brenda Geovani RN; for sedation; 9:20:24 Procedure started. 9:20:39 Local anesthetic to right radial artery with Lidocaine 2% by Greg Looney MD.INITIAL ACCESS ONLY 9::43 Versed 2 mg I.V. was administered by Brenda Olivo RN; for sedation; 9:21:22 Use device set Radial Dx or PCI 9:21:24 ACIST Syringe (06697) opened to sterile field. 9:21:26 Bag Decanter (2002S) opened to sterile field. 9:21:26 ACIST Hand Control (16953) opened to sterile field. 9:21:27 ACIST Manifold (27231) opened to sterile field. 9:21:27 Tegaderm 4 x 4 (1626W) opened to sterile field. 9:21:29 Medline Cath Pack ([id number]) opened to sterile field. 9:21:29 DIAGNOSTIC WIRE .035 260cm J wire (793266) opened to sterile field. 9:21:30 MBrace Wrist Support ([id number]) opened to sterile field. 9:21:31 SHEATH 6FR Slender (80-5330) opened to sterile field. 9::43 Versed 1 mg I.V. was administered by Brenda Olivo RN; for sedation; 9:29:15 Local anesthetic to right femoral artery with Lidocaine 2% by Greg Looney MD.ADDITIONAL ACCESS 9:30:21 SHEATH 5FR [place] (BMP635) opened to sterile field. 9:30:26 Use device set Multipack Set 9:30:29 DIAGNOSTIC Multipack 5Fr catheter set (QF5018) opened to sterile field. 9:31:08 A 5 Fr sheath was inserted into the Right Femoral artery 9:31:40 A MULTIPACK 3DRC 5Fr catheter was advanced over the wire and used for Procedure. 9:32:22 RCA angiography performed. 9:32:26 Catheter exchanged over wire. 9:32:57 A MULTIPACK JL 4.0 5Fr catheter was advanced over the wire and used for Procedure. 9:34:22 LCA angiography performed. 9:34:50 Catheter removed. 9:35:34 A MULTIPACK Pigtail 5 Fr catheter was advanced over the wire and used for Procedure. 9:35:50 LV gram done using MOSES 9:35:53 Injector settings: Ml/sec: 10, Volume: 20, 9:36:56 EF : 50 % 9:37:07 CATH PULLED DOWN 9:37:24 Abdominal angiogram w/ runoff was performed. 9:37:28 Left leg runoff performed. 9:38:01 Right leg runoff performed. 9:38:14 Catheter removed. 9:38:33 EXOSEAL 5Fr (EX500) opened to sterile field. 9:38:58 Sheath removed intact; hemostasis achieved with Exoseal to the Right Femoral artery. 9:39:08 Procedure ended.(Physican Out) 9:39:45 Fluoroscopy time 02.00 minutes. 9:39:49 Fluoroscopy dose: 568 mGy 9:39:49 Flurop Dose total: 568 9:40:08 Contrast amount:Isovue 300 103ml. 9:40:09 Sharps counted by scrub and verified by R.N. 9:40:13 Post-op/insertion site Right Femoral artery dressed using a 4 x 4 and Tegaderm. 9:40:23 Post-procedure physical assessment completed. ASA score P 2 - A patient with mild systemic disease as per Greg Looney MD. 9:40:27 Post procedure rhythm: unchanged. 9:40:30 Estimated blood loss: 10 ml 9:40:31 Post procedure instruction explained to patient.Patient verbalizes understanding. 9:40:32 Patient needs reinforcement of post procedure teaching. 9:41:05 Procedure type changed to Cath procedure, Diagnostic procedure, LHC, LHC w/Coronaries, Sedation Charges, Moderate Sedation up to 15 minutes, Peripheral Cath Diagnostic Procedure, C Software Developer Peripheral Procedures, Goicn-Fuxiqte-Wza-Off 9:42:08 Procedure and supply charges have been captured, reviewed, submitted and are correct. 9:42:11 Procedure Complication : No complications 9:42:13 Vital chart was stopped 9:42:13 See physician's report for complete and final results. 9:42:16 Report given to Pre/Post Procedure Room. 9:42:18 Patient transfered to Pre/Post Procedure Room with Bed. 9:42:20 Procedure ended. 9:42:20 Full Disclosure recording stopped 9:42:22 End room use (Document Last) Device Usage Item Name Manufacture Quantity Catalog Hospital Part Current Minimal Lot# / Number Charge Number Stock Stock Serial# Code [facility] 1 60542 288126 014121 [id number] 20 Syringe Medical (59718) Systems Inc Bag Microtek 1 2001S 958988 07020 982575 5 Decanter Medical Inc. (2001S) ACIST Hand Acist 1 42665 413825 074622 993310 5 Control Medical (77551) Systems Inc ACIST Acist 1 87760 730756 323183 248091 5 Manifold Medical (41456) Systems Inc Tegaderm 4 3M 1 1626W 112316 895264 818767 5 x 4 (1626W) Medline Medline 1 [id number] 479725 12173 926683 5 Cath Pack ([id number]) DIAGNOSTIC [facility] Royce 1 940546 258072 795933 170658 30 WIRE .035 260cm J wire (115876) MBrace Advanced 1 140-0250-00 119568 74198 440276 5 Wrist Vascular Support Dynamics ([id number]) SHEATH 6FR Terumo 1 [id number] 726291 219198 764944 5 Slender (80-1060) SHEATH 5FR Terumo 1 NYY251 913194 795767 059432 5 [place] (RNA341) DIAGNOSTIC Cardinal 1 UP9416 852765 92773 399292 30 Multipack Health 5Fr catheter set (EC8321) MULTIPACK Cardinal 1 171718 5 3DRC 5Fr Health catheter MULTIPACK Cardinal 1 084079 5 JL 4.0 5Fr Health catheter MULTIPACK Cardinal 1 579211 5 Pigtail 5 Health Fr catheter EXOSEAL 5Fr Cardinal 1 EX500 775942 202536 477378 10 (EX500) Health Signature Audit [place]mere Stage Time Signature Unsigned Intra-Procedure 05/26/2018 Humaira Atkins 9:46:01 AM RT(R) Signatures Monitor : Humaira Atkins Signature : RT Date : Time : [facility] [address] [place] [address]
--- NOTE | ~2018-05-26 | OP ---
PATIENT NAME: ADRIAN RHODES MEDICAL RECORD: [id number] :45 LOCATION:D.CAT ADMISSION DATE: SURGEON: YINA ALLISON MD DATE OF OPERATION: 05/26/2018 PROCEDURES: 1. Left heart catheterization. 2. Selective coronary angiography. 3. Left ventriculogram. INDICATION: Angina and coronary artery disease. PROCEDURE IN DETAIL: After informed consent was obtained and after a detailed explanation of risks, benefits as well as alternative therapies, the patient elected to proceed with angiogram and heart catheterization. The right femoral area was prepped and draped in normal sterile fashion. The right femoral artery was cannulated via modified Seldinger technique with placement of 6-Czech sheath. All catheters exchanged through this sheath. FINDINGS: Left ventriculogram was performed in standard 30-degree MOSES view, reveals preserved cardiac wall motion, ejection fraction 50%. SELECTIVE CORONARY ANGIOGRAPHY: 1. Left main has 80% stenosis distally. 2. Left anterior descending has previously placed stents, these are widely patent with no significant restenosis. Distal LAD is a good target suitable for grafting. 3. The left circumflex has 95% stenosis in the mid vessel with a good target distally suitable for grafting. 4. Right coronary has previously placed stents in the distal aspect. There is 90% in-stent restenosis with a good lumen suitable for grafting after this. OVERALL IMPRESSION: Severe 3-vessel coronary artery disease with the left main and preserved left ventricular function, evaluate for coronary bypass graft surgery. TRANSINT:[id number] Voice Confirmation ID: [id number] DOCUMENT ID: [id number] YINA ALLISON MD at 1324 CC: [id number] DICTATION DATE: 05/26/18 1017 FLAME HARDENER: 05/26/18 1049 DEP CLI 05/26/18 [place] [address]
--- NOTE | ~2018-05-26 | OP ---
PATIENT NAME: ADRIAN RHODES MEDICAL RECORD: [id number] :45 LOCATION:D.CAT ADMISSION DATE: SURGEON: YINA ALLISON MD DATE OF OPERATION: 05/26/2018 DATE OF SERVICE: 05/26/2018 DIAGNOSES: 1. Aortofemoral runoff. 2. Abdominal aortography. INDICATION: Claudication and peripheral vascular disease. DESCRIPTION OF PROCEDURE: After informed consent was obtained and after a detailed description of risks, benefits as well as alternative therapies, the patient elected to proceed with angiogram and aortofemoral runoff. The catheter was advanced to the distal aorta, pulled down for aortofemoral runoff. FINDINGS: Abdominal aortography reveals no significant abdominal aortic disease, no dissection or annulus formation. RIGHT LEG: A. Iliac: The common internal and external iliacs have mild irregularities, but no flow-limiting stenosis. B. Femoral system: The common femoral is widely patent. Superficial femoral was totally occluded. There is a femoral popliteal graft that is widely patent; however, after this in the popliteal, there is a 90% stenosis. Infrapopliteal vessels show patency, 3-vessel runoff to the foot, although diffusely diseased. LEFT LEG: A. Iliac: The common internal and external iliacs have mild irregularities, but no flow-limiting stenosis. B. Femoral system: The common and deep femoral are widely patent. Superficial femoral has previously placed stents. There is 90-95% in-stent restenosis throughout the stented area. C. Popliteal and infrapopliteal vessels are patent. There is 3-vessel runoff to the foot, although diffusely diseased. OVERALL IMPRESSION: Wide patency of the femoral popliteal graft on the right with significant stenosis after this, it is amenable to transcatheter revascularization. The left leg shows a long area of in-stent restenosis that would be better served by bifemoral popliteal grafting on this side if possible. TRANSINT:[id number] Voice Confirmation ID: [id number] DOCUMENT ID: [id number] YINA ALLISON MD at 1324 CC: [id number] DICTATION DATE: 05/26/18 1017 PRECISION GRINDER: 05/26/18 1054 DEP CLI 05/26/18 [place] [address]
[~2018-05-26 07:23] MED LIST changes: +BETAPACE 80 MG80 MG PO
[2018-05-26 07:50] VITALS: BP 180/102; Ht 175.3 cm; Wt 85.0 kg
[2018-05-26 08:03] LABS: BASOPHILS 0.9 % (0-2); EOSINOPHILS 3.8 % (0-7); HEMOGLOBIN 15.3 g/dL (13.5-17.5); IMMATURE GRANULOCYTES 0.1 % (0-5); LYMPHOCYTES 26.6 % (15-50); MCH 31.1 pg (26.0-34.0); MCHC 35.6 g/dL (31.0-37.0); MCV 87.4 fL (80.0-100.0); MEAN PLATELET VOLUME 9.7 fL (7.4-10.4); MONOCYTES 7.6 % (2-11); PLATELET COUNT 306 10x3/uL (130-400); RBC 4.92 10x6/uL (4.20-6.10); RDW 13.6 % (11.5-14.5); WBC 6.9 10x3/uL (4.8-10.8)
[2018-05-26 08:49] LABS: ANION GAP 19.6 mmol/L (8-16); CALCIUM 9.1 mg/dL (8.5-10.1); CARBON DIOXIDE 27.8 mmol/L (21.0-32.0); CREATININE - SERUM 2.1 mg/dL (0.6-1.3); POTASSIUM - SERUM 3.4 mmol/L (3.5-5.1)
== END | disposition home or self-care (01) ==
LOC: D.CATH 07:23
PROVIDERS: Internal Medicine Interventional Cardiology
DX: I25.119 Atherosclerotic heart disease of native coronary artery with unspecified angina pectoris (principal); T82.855A Stenosis of coronary artery stent, initial encounter; T82.856A Stenosis of peripheral vascular stent, initial encounter; I70.219 Atherosclerosis of native arteries of extremities with intermittent claudication, unspecified extremity; Z01.812 Encounter for preprocedural laboratory examination

== ENCOUNTER 2018-06-14 09:30 | Inpatient (IN) | payer MEDICARE ==
[~2018-06-14] VITALS: Ht 175.3 cm; Wt 104.1 kg
[2018-06-14] MEDS ORDERED: FISH OIL 1,0001 CA1 PO (10:05)
[2018-06-14 12:40] LABS: BASOPHILS 0.5 % (0-2); EOSINOPHILS 2.2 % (0-7); HEMATOCRIT 41.8 % (42.0-54.0); HEMOGLOBIN 14.7 g/dL (13.5-17.5); IMMATURE GRANULOCYTES 0.3 % (0-5); LYMPHOCYTES 21.2 % (15-50); MCH 30.6 pg (26.0-34.0); MCHC 35.2 g/dL (31.0-37.0); MCV 86.9 fL (80.0-100.0); MEAN PLATELET VOLUME 9.5 fL (7.4-10.4); MONOCYTES 8.3 % (2-11); NEUTROPHILS 67.5 % (40-80); PLATELET COUNT 294 10x3/uL (130-400); RBC 4.81 10x6/uL (4.20-6.10); RDW 13.4 % (11.5-14.5); WBC 7.4 10x3/uL (4.8-10.8)
[2018-06-14 13:07] LABS: INR 0.95 (0.85-1.17); PROTIME 12.2 SECONDS (11.6-15.0)
[2018-06-14 13:08] LABS: APTT 40.8 SECONDS (22.8-39.4)
[2018-06-14 13:11] LABS: ALBUMIN 3.8 g/dL (3.4-5.0); ANION GAP 17.6 mmol/L (8-16); BILIRUBIN - TOTAL 0.26 mg/dL (0.2-1.3); CALCIUM 9.1 mg/dL (8.5-10.1); CREATININE - SERUM 1.5 mg/dL (0.6-1.3); PHOSPHOROUS 3.9 mg/dL (2.5-4.9); POTASSIUM - SERUM 3.6 mmol/L (3.5-5.1); PROTEIN - SERUM 7.2 g/dL (6.4-8.2); T4 THYROXIN - FREE 0.92 ng/dL (0.76-1.46); THYROID STIMULATING HORMONE 2.11 uIU/mL (0.36-3.74); URIC ACID 8.1 mg/dL (2.6-7.2)
[2018-06-14 13:21] LABS: APPEARANCE HAZY (CLEAR); BILIRUBIN NEGATIVE (NEGATIVE); COLOR YELLOW (YELLOW); EPITHELIAL CELLS RARE /hpf (0-5); GLUCOSE NEGATIVE (NEGATIVE); KETONE NEGATIVE (NEGATIVE); NITRITE NEGATIVE (NEGATIVE); PROTEIN 3+ mg/dL (NEGATIVE); RED CELLS - URINE 0-5 /hpf (0-5); SPECIFIC GRAVITY 1.015 (1.005-1.020); UROBILINOGEN NORMAL (NORMAL)
[2018-06-14 13:22] LABS: BACTERIA FEW /hpf (NONE SEEN); MUCUS <1+ /lpf (NONE SEEN); SPERMATOZOA PRESENT /hpf (NONE SEEN)
--- NOTE | 2018-06-15 17:16 | HP ---
PATIENT: ADRIAN RHODES MEDICAL RECORD: [id number] ACCOUNT: [id number] LOCATION:[facility] : 45 ADMISSION DATE: 06/14/18 PCP: JOSE LUIS GONZALEZ MD HISTORY AND PHYSICAL EXAMINATION ADRIAN Mao (72yo, M) ID# [id number]. Date/Time05/30/2018 03:[id number] 1945Service Dept.NP_[facility] ClinicProviderDANITERI GONZALEZ MDInsuranceMed Primary: [employer] (MEDICARE REPLACEMENT/ADVANTAGE - PPO) Insurance # : [id number] Referring Provider Name : MARQUISE SUÁREZ Employer Name : NA Prescription: DSTPSDIR - Member is eligible. Chief Complaint Coronary artery disease Patient's Care Team Referring Provider (): MARQUISE SUÁREZ: [facility], [address], [place] [address], , Patient's Pharmacies [facility] ([facility] [address] [address], [place] [address], , Vitals BP:140/90 sitting R arm 05/30/2018 03:54 pmHR:140/90 05/30/2018 03:55 pmHt:5 ft 10 in 05/30/2018 03:51 pmWt:187 lbs With clothes 05/30/2018 03:53 pmBMI:26.8 05/30/2018 03:53 pmAllergies Reviewed Allergies ROCEPHINSULFA (SULFONAMIDE ANTIBIOTICS)Medications Reviewed Medications albuterol /07/18 enteredKimberly Diehlalbuterol sulfate 2.5 mg/3 mL (0.083 %) solution for oauvpjejoxbf71/19/18 filledB[facility] HospitalOptionsCity Softwareaspirin10/17/17 enteredKimberly Diehlazithromycin 250 mg /26/18 filledBenson HospitalYouku CmkpfpugmdNRWauo73/07/18 enteredKimberly DiehlcloNIDine HCl 0.2 mg dkezmr51/28/18 filledBenson HospitalOptionsCity SoftwareVcrpbfayzkmupepabv93/07/18 enteredKimber Diehlclopidogrel 75 mg ohqzvn18/15/18 filledPresentation Medical Centerdoxycycline hyclate 100 mg purvpr36/01/18 filledPresentation Medical Centergemfibrozil10/17/17 enteredKimberly Diehlgemfibrozil 600 mg jnsder62/16/18 filledPresentation Medical CenterHYDROcodone 10 mg-acetaminophen 325 mg rihclm76/09/18 filledPresentation Medical CenterHYDROcodone 7.5 mg-acetaminophen 325 mg yuevxb87/14/18 filledPresentation Medical Centeripratropium-albuterol 0.5 mg-3 mg(2.5 mg base)/3 mL nebulization soln12/19/17 filledPresentation Medical CenterlevoFLOXacin 500 mg mympkc75/09/18 filledPresentation Medical Centerlosartan 100 mg-hydrochlorothiazide 25 mg hggzku77/15/18 filledPresentation Medical Centermeloxicam 15 mg bmccyy00/15/18 [facility] Centermethocarbamol 500 mg tablet TAKE ONE TABLET BY MOUTH THREE TIMES A DAY NEEDED FOR MUSCLE BFWWLU21/12/18 filledsurescriptsmethylPREDNISolone 4 mg tablets in a dose pack12/11/17 [facility] Centermetoprolol tartrate 50 mg /23/18 filledPresentation Medical Centerniacin10/17/17 enteredKimber GltnfGVKBxnacca86/07/18 enteredDutton DiehlNIFEdipine ER 90 mg tablet,extended release 24 hr05/29/18 filledPresentation Medical CenterNitrostat 0.[address] 1 tablet(s) by sublingual route.05/26/18 enteredD[facility] Hospital Wilsonnystatin 100,000 unit/mL oral rokavxztnc77/19/18 filledPresentation Medical Centersotalol 80 mg tablet Take 1 tablet(s) twice a day by oral route.05/26/18 enteredKat WilsonProblems Reviewed Problems Coronary arteriosclerosis - Onset: 05/26/2018 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 HISTORY AND PHYSICAL [id number] ADRIAN RHODES 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 HPI multiple stents and history of right femoral popliteal bypass by Dr. 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 Constitutional: General Appearance well nourished and developed and healthy-appearing. Level of Distress NAD. Ambulation ambulating normally. Cardiovascular: Apical Impulse not displaced or no thrill. Heart Auscultation no murmurs, rubs, or gallops and RRR. Arterial Pulses 2+ bilateral radial. Edema no edema or varicosities. Lungs: Repiratory Effort no dyspnea. Percussion no hyperresonance or dullness or flatness. Auscultation no wheezing, rhonchi, or rales / crackles and breathing sounds normal and good air movement. Abdomen: Bowl Sounds normal. Inspection and Palpation no tenderness, guarding, or masses and soft and non-distended. Liver non-tender and no hepatomegaly. Spleen non-tender and no splenomegaly. Ears, Nose, Throat: Hearing grossly normal hearing. Oropharynx: moist mucous membranes. HISTORY AND PHYSICAL [id number] ADRIAN RHODES Musculoskeletal System: Digits and Nails normal nails and no cyanosis. Joints, Bones, and Muscles normal strength and movement of all extremities. Neurologic: Cranial Nerves grossly intact. Sensation grossly intact. Lymph Nodes: Lymph Nodes no cervical LAD or supraclavicular LAD. Eyes: Lids and Conjunctivae no discharge or pallor and non-injected. Pupils PERRLA. EOM EOMI. Sclerae non-icteric. Neck: Neck no masses, enlarged lymph nodes, or carotid bruits and supple and trachea midline. Thyroid no enlargement or nodules and non-tender. Skin: Inspection and Palpation no rash, lesions, ulcers, or jaundice; dry skin bilaterally below-knee with chronic hair loss No signs of vein stripping or varicose veins left lower extremity Intact right leg bypass. Assessment / Plan 1. Coronary arteriosclerosis I25.10: Atherosclerotic heart disease of [place] coronary artery without angina pectoris Patient Goals stop smoking completely for 3 days prior to surgery Patient Instructions JESSICA stop Plavix 7 days before surgery Discussion Notes we discussed coronary artery bypass graft, the rationale, alternatives, benefits, risks, and recovery. He understands and wishes to proceed. We will perform pulmonary vein isolation and possible ablation. He understands the risks and gives consent Return to Office None recorded. JOSE LUIS GONZALEZ MD at 1716 CC: [id number] DICTATION DATE: 05/30/18 1530 CATERER'S AIDE: MALACHI 06/14/18 1418 PRE IN [facility] [address] [place] [address]
[2018-06-16] VITALS (44 sets, daily range): BP systolic 101–183; BP diastolic 55–97; BMI 27.6; BMI 29.2
--- NOTE | 2018-06-16 13:31 | NUR ---
PT ARRIVED IN THE UNIT. PT SEDATED AND ON THE VENTILATOR. PT HOOKED TO ICU MONITORS. PT SEDATED AND UNABLE TO FOLLOW INSTRUCTIONS AT THIS TIME. 8.5 ETT 25 AT THE LIP. VENT AC 14, 500, 100%FIO2 PEEP OF 5. RIGHT IJ CVL NOTED. SEE IV FLUIDS PER FLOW SHEET. TITRATING NITRO PER ORDERS FOR BP. PT VENTRICULARLY PACING ON THE MONITOR AT 80. TPM SUBSTERNALLY NOTED. SETTINGS: VVI RATE 80 VMA 10 SENSITIVITY 2. WAS TOLD THAT THE PT IS PACE MAKER DEPENDENT. CT X2 SUBSTERNALLY LABLED A AND P. BOTH CONNECTED TO 20 O SUCTION WITH NO AIR LEAK. LEFT SOPHIE SUBSTERNALLY COMPRESSED. ALL DRAINS NOTED TO HAVE BLOODY DRAINAGE. RIGHT RADIAL TYSON NOTED, GOOD WAVE FORM. WRIST PROTECTOR ON. FC NOTED WITH CLEAR, YELLOW URINE. LEFT LEG HARVEST NOTED. KOBAN FROM THIGH TO ANKLE. PERIPRHIAL PULSES WEAK BUT DOPPLERABLE. VSS AT THIS TIME. WILL CONT POC.
--- NOTE | 2018-06-16 14:25 | NUR ---
ABG OBTAINED PER RT
--- NOTE | 2018-06-16 14:30 | NUR ---
DR GONZALEZ AT THE PTS BEDSIDE. HE REVIEWED THE PTS ABG RESULTS AND I WAS INSTRUCTED TO GIVE 20MEQ OF K. DR GONZALEZ ADJUSTED THE TPM AND THE PT REMAINS TO BE PACEMAKER DEPEDENT. PACE MAKER SETTINGS REMAIN THE SAME. VSS. FAMILY AT THE PTS BEDSIDE AND DR GONZALEZ SPOKE WITH THE FAMILY. WILL CONT POC.
--- NOTE | 2018-06-16 15:00 | NUR ---
PT STILL REMAINS VERY SEDATED. WILL OPEN EYES WHENEVER HIS NAME IS SPOKEN BUT WILL CLOSE THEM IMMEDIATELY. PT RESPIRATIONS 16 AND THE VENT IS SET AT AC 16. WILL MONITOR
--- NOTE | 2018-06-16 15:23 | NUR ---
PT SESATING 93-89%. VENT ON 40%. ABG OBATINED. O2 SAT 89. FIO2 INCREASED TO 60% PER RT.
--- NOTE | 2018-06-16 15:36 | NUR ---
PT REMAINS TO BE HEAVLILY SEDATED. WILL OPEN HIS EYES WHENEVER HIS NAME IS SPOKEN BUT WILL NOT FOLLOW COMMANDS. PT REMAINS TO BREATHING AT THE VENTIRLATOR SET RATE. WILL CONT POC.
--- NOTE | 2018-06-16 15:45 | NUR ---
PT OPENEING HIS EYES WHENEVER HIS NAME IS CALLED OUT BUT STILL WONT FOLLOW COMMANDS. WILL MONITOR.
--- NOTE | 2018-06-16 16:15 | NUR ---
PT WILL OCCASIONALLY SENSE ON THE PACEMAKER. DR GONZALEZ NOTIFIED AND STATED TO CHECK THE UNDERLING RYTHM. PACEMAKER ADJUSTED AND THE PT IS NOTED TO BE IN A COMPLETE HEART BLOCK. ORDERS TO KEEP THE PACEMAKER AT THE ORIGINAL SETTINGS.
--- NOTE | 2018-06-16 16:20 | NUR ---
PT BECOMING MORE ALERT. WILL OPEN HIS EYES ON COMMAND AND WILL SLIGHTLY SQUEEZE MY HANDS ON COMMAND. THE PT HOWEVER IS STILL VERY DROWSY.
--- NOTE | 2018-06-16 16:58 | NUR ---
FSBS OVER 200 THE LAST 2 CHECKS. INSULIN STARTED PER PROTOCHOL.
--- NOTE | 2018-06-16 17:55 | NUR ---
PT STILL VERY [place]OW TO AROUSE. HE WILL RESPOND TO HIS NAME BUT HAVE TO REPEATEDLY CALL OUT HIS NAME FOR HIM TO OPEN HIS EYES. ONCE HIS EYES ARE OPEN, HE WILL SQUEEZE MY HAND WITH A VERY WEAK HIGH SPEED WARPER TENDER ON COMMAND. DR GONZALEZ NOTIFIED. NO NEW ORDERS AT THIS TIME. PT BREATHING OVER THE VENT AND VSS. WILL CONT. MONITOR/POC.
--- NOTE | 2018-06-16 18:15 | NUR ---
PT BECAME HYPOTENSIVE. AURE INITIATED AND NITRO AND CLIVEPREX STOPPED.
--- NOTE | 2018-06-16 18:27 | NUR ---
SPOKE WITH DR FITZGERALD. HE WAS UPDATED ON THE PTS CONDITION INCLUDING VS AND IV GTTS. HE IS ALSO AWARE THAT THE PT IS HARD TO AROUSE. NO NEW ORDERST AT THIS TIME. WILL CONT POC.
--- NOTE | 2018-06-16 18:30 | NUR ---
PT BECOMING HTN. AURE STOPPED. WILL USE TITRATE NITRO AND CLEVIPREX PER BP. SEE IV FLOW SHEET.
--- NOTE | 2018-06-16 19:20 | NUR ---
REPORT REC'D AND CARE ASSUMED, REC'D PT ON VENT VIA 8.5 ETT TAPED SECURELY @ 24CM LIPLINE, SEE FLOWSHEET FOR VENT SETTINGS, RIJ SWAN CAPPED, SIDE PORTS WITH IV FLUIDS INFUSING, SEE FLOWSHEET FOR IV GTTS AND RATES, MIDSTERNAL DRSG CDI, SUBSTERNAL DRSG CDI TO CT INSERTION SITES AND EXTERNAL P/M WIRE, CM-V PACED @ 80, EXTERNAL P/M VVI 80 VMA 10, RIGHT RADIAL TYSON WITH FLEXION BOARD IN USE, LEVELED AND ZEROED WITH RETURN OF APPROPRIATE WAVEFORM, PT DOES NOT OPEN EYES TO VERBAL STIMULI, AROUSABLE TO DEEP STIMULI, ABD SOFT, BS HYPOACTIVE, MEDIASTINAL CT'S X 2 TO 20CM H2O SUCTION, NO AIR LEAK NOTED, LEFT SUBSTERNAL SOPHIE DRAIN COMPRESSED WITH SANGUINOUS DRAINAGE, CRITICORE WALKER PATENT DRAINING CLEAR YELLOW URINE, LEFT LEG COBAN DRSG CDI, RIGHT LEG WITH SCD INTACT AND ON, PP BY DOPPLER, BILATERAL SOFT WRIST RESTRAINTS INTACT, SR UP X 2, 1:1 NURSE AT BS.
--- NOTE | 2018-06-16 19:33 | NUR ---
RIGHT PUPIL 5MM, AND LEFT PUPIL 2MM. NEW FIND. DR FITZGERALD NOTIFIED AND AWARE. NO NEW ORDERS AT THIS TIME. WILL CONT POC.
--- NOTE | 2018-06-16 20:15 | NUR ---
PT'S SON AND DAUGHTER IN LAW AT BS, UPDATE PROVIDED, FAMILY VERBALIZED THEY WERE CONCERNED PT WAS NOT WAKING UP YET, EXPLAINED TO PT'S FAMILY THAT ANESTHESIA WELL AGE CAN AFFECT HOW LONG IT TAKES FOR PT TO AWAKEN, THEY VERBALIZED UNDERSTANDING, NO RESPONSE FROM PT WHEN FAMILY SPEAKING TO HIM.
--- NOTE | 2018-06-16 20:50 | NUR ---
PT MOVING RIGHT LEG AND PULLING AT RIGHT WRIST RESTRAINT, DOES NOT OPEN EYES ON COMMAND, DOES PSYCHOLOGIST COUNSELING WITH RIGHT HAND ON COMMAND BUT NOT LEFT, PUPILS REMAIN UNEQUAL, MD AWARE OF FINDINGS.
--- NOTE | 2018-06-16 21:30 | NUR ---
PO MEDS HELD DUE TO NPO STATUS, OTHER EVENING MEDS GIVEN ORDERED, VSS, WILL MONITOR CLOSELY FOR CHANGES.
--- NOTE | 2018-06-16 23:30 | NUR ---
REASSESSMENT COMPLETED, RESPS INCREASE AND BP ELEVATES TO VERBAL STIMULI, SPONTANEOUS MOVEMENT FROM PT OF RIGHT ARM AND LEG, NO MOVEMENT OF LEFT SIDE NOTED, PUPILS REMAIN UNEQUAL RIGHT 5MM FIXED AND LEFT 2MM AND FIXED, PT REMAINS ON VENT A 60%, RESP RATE 20, SEE FLOWSHEET FOR VENT SETTINGS, ABD SOFT WITH BS [id number], MIDSTERNAL AND SUBSTERNAL DRSGS CDI, MEDIASTINAL CTS TO 20 CM H2O SUCTION, LEFT SUBSTERNAL SOPHIE DRAIN COMPRESSED SANGUINOUS DRAINAGE, CRITICORE WALKER PATENT DRAINING CLEAR YELLOW URINE, LEFT LEG COBAN CDI, PULSES BY DOPPLER.
[2018-06-17] VITALS (100 sets, daily range): BP systolic 116–155; BP diastolic 47–89; BMI 29.9
--- NOTE | 2018-06-17 00:30 | NUR ---
PT REPOSITIONED ONTO RIGHT SIDE SUPPORTED WITH PILLOWS, CONTINUES TO SPONTANEOUSLY MOVE ARM BUT DID NOT OPEN EYES OR FOLLOW COMMANDS ON REQUEST.
--- NOTE | 2018-06-17 01:45 | NUR ---
RT AT BS, ORAL CARE PROVIDED, AFTER ORAL CARE PT OPENED EYES WHILE COUGHING ON VENT, DOES NOT TRACK, FOLLOWED COMMAND TO SQUEEZE HAND AND WIGGLE TOES ON RIGHT HAND AND FOOT, ATTEMPTED TO MOVE LEFT FOOT, NO MOVEMENT OF LEFT ARM NOTED, PT ASKED TO SHAKE HEAD YES OR NO TO QUESTIONS, NO RESPONSE FROM PT NOTED
--- NOTE | 2018-06-17 03:00 | NUR ---
REASSESSMENT COMPLETED, NO CHANGES FROM PREVIOUS ASSESSMENT, WILL CONT CURRENT POC.
--- NOTE | 2018-06-17 04:30 | NUR ---
COMPLETE BATH AND LINEN CHANGE PROVIDED, WALKER CARE COMPLETED, PT REPOSITIONED ON TO BACK, ORAL CARE PROVIDED, PT OPENED EYES DURING BATH BUT DID NOT TRACK OR FOLLOW COMMANDS, CONTINUES TO MOVE RIGHT LEG SPONTANEOUSLY, TITRATING NITROGLYCERIN AND CLEVIPREX TOLERATED.
--- NOTE | 2018-06-17 05:25 | NUR ---
AM LAB DRAWN FROM CVL AND SENT TO L[facility]
--- NOTE | 2018-06-17 05:45 | NUR ---
SPOKE WITH PT'S DAUGHTER IN LAW BY PHONE, PASSWORD VERIFIED AND UPDATE PROVIDED.
[2018-06-17 06:22] LABS: HEMATOCRIT 33.5 % (42.0-54.0); HEMOGLOBIN 11.6 g/dL (13.5-17.5); MCH 30.1 pg (26.0-34.0); MCHC 34.6 g/dL (31.0-37.0); RBC 3.85 10x6/uL (4.20-6.10); RDW 13.4 % (11.5-14.5); WBC 13.7 10x3/uL (4.8-10.8)
[2018-06-17 06:34] LABS: CALCIUM 8.2 mg/dL (8.5-10.1); CARBON DIOXIDE 23.7 mmol/L (21.0-32.0); CREATININE - SERUM 2.4 mg/dL (0.6-1.3); POTASSIUM - SERUM 3.7 mmol/L (3.5-5.1)
--- NOTE | 2018-06-17 09:33 | NUR ---
0715-RECIEVED PER FLOW [id number] GRIMACE ILLICITED TO PAINFUL STIMULI R ARM RANDOM MOVEMENT -NOT TO COMMAND AND A DELAYED GUARD TO PAINFUL STIMULI R LEG RANDOM MOVEMENT TO ALL JOINTS-GUARDS TO PAINFUL L LEG-NO RANDOM OR COMMAND MOVEMENT-SLIGHT GUARD AND DELAYED TO PAINFUL STIMULUS 0800-FAMILY AT BEDSIDE AND UPDATED TO CURRENT CONDITIONS AND FINDINGS- 929-ADDRESSED QUESTIONS REGARDING IV INSULIN USAGE-
--- NOTE | 2018-06-17 15:28 | OP ---
PATIENT NAME: ADRIAN RHODES MEDICAL RECORD: [id number] :45 LOCATION:[facility] D.CV03 ADMISSION DATE:06/16/18 SURGEON: DOUGIE FITZGERALD MD DATE OF OPERATION: 06/16/2018 WASHER MEAT NOTE OPERATION PERFORMED: Coronary artery bypass. WASHER MEAT: Dougie Fitzgerald MD PRIMARY SURGEON: Jm Her MD ANESTHESIA: General endotracheal, Dr. Rebollar. FINDINGS OF OPERATION: Good quality left greater saphenous vein graft. DESCRIPTION OF PROCEDURE: After informed consent, adequate preoperative medication evaluation, the patient was brought to the operating room, placed on the table in supine position. After induction of general endotracheal anesthesia and application of appropriate monitoring devices, the patient was prepped and draped in a sterile field. Timeout was taken. The incision was made below the knee on the left and the greater saphenous vein was identified. He underwent endoscopic harvesting and dissected distally with an open technique. The vein was amputated distally and cannulated. The tributaries were tied with 4-0 silk. The vein was of excellent quality. The hemostasis was assured and the operation was turned over to Dr. Her. TRANSINT:[id number] Voice Confirmation ID: [id number] DOCUMENT ID: [id number] DOUGIE FITZGERALD MD at 1528 CC: [id number] DICTATION DATE: 06/16/18 1124 MINE ENVIRONMENTAL ENGINEER: 06/16/18 1156 [place] [address]
--- NOTE | 2018-06-17 16:58 | NUR ---
1130-DR FITZGERALD AT BEDSIDE-UPDATE GIVEN TO FAMILY AND QUESTIONS AND CONCERNS ADDRESSED 1130-16 FR OGT PLACED WITHOUT DIFFICULTY-PLACEMENT CONFIRMED WITH AUSCULTATION AND ASPIRATION OF GASTRIC CONTENETS
--- NOTE | 2018-06-17 18:16 | NUR ---
L LEG COBAN WRAP REMOVED-INCISIONS INTACT-LEFT OPEN TO AIR AND NO PARISH PLACED-HX OF STENTS
--- NOTE | 2018-06-17 19:10 | NUR ---
REPORT REC'D AND CARE ASSUMED, PT REMAINS ON VENT VIA 8.5 ETT TAPED SECURELY AT 24CM LIPLINE, AROUSABLE TO DEEP STIMULI BUT DOES NOT FOLLOW COMMANDS OR TRACK WITH EYES, SPONTANEOUS MOVMENT OF RIGHT ARM AND RIGHT LEG NOTED, OGT TAPED SECURELY TO ETT, PLACEMENT VERIFIED VIA SM AIR BOLUS, OGT CLAMPED, MIDSTERNAL DRSG CDI, RIJ CENTRAL LINE MANNIFOLD WITH PLASMALYTE @ 100CC/HR, NITROGLYCERIN @ 50MCG/MIN, AND CLEVIPREX @ 4MG/HR OR 8CC/HR, BURETROL @ 5CC/HR SUBSTERNAL DRSG CDI, MEDIASTINAL CT'S X 2 TO 20CM H2O SUCTION, NO AIR LEAK NOTED, LEFT SUBSTERNAL SOPHIE DRAIN COMPRESSED WITH SMALL AMOUNT OF BLOODY DRAINAGE NOTED, GENERALIZED EDEMA, NO PURPOSEFUL MOVEMENT OF LEFT ARM, SUPPORTED ON PILLOW, LEFT LEG WITH HARVEST SITES OPEN TO AIR, NO REDNESS OR DRAINAGE, RIGHT RADIAL TYSON WITH FLEXION BOARD, LEVELED AND ZEROED WITH RETURN OF APPROPRIATE WAVEFORM, CRITICORE WALKER PATENT DRAINING CONCENTRATED URINE, SCDS INTACT, PP BY DOPPLER, BILAT SOFT WRIST RESTRAINTS INTACT.
--- NOTE | 2018-06-17 20:20 | NUR ---
FAMILY AT BS, UPDATE GIVEN AND QUESTIONS ANSWERED.
--- NOTE | 2018-06-17 21:05 | NUR ---
EVENING MEDS GIVEN ORDERED.
--- NOTE | 2018-06-17 21:45 | NUR ---
PT REPOSITIONED ONTO RIGHT SIDE SUPPORTED WITH PILLOWS, LEFT ARM ELEVATED ON PILLOW, BP STABLE, WILL ATTEMPT TO WEAN NITROGLYCERIN AND CLEVIPREX TOLERATED.
[2018-06-18] VITALS (96 sets, daily range): BP systolic 115–164; BP diastolic 44–83
--- NOTE | 2018-06-18 00:45 | NUR ---
PT REPOSITIONED ONTO BACK, ORAL CARE PROVIDED, ARMS AND LEGS ELEVATED ON PILLOW, VSS.
--- NOTE | 2018-06-18 02:00 | NUR ---
NO CHANGES IN STATUS AT THIS TIME.
--- NOTE | 2018-06-18 03:20 | NUR ---
REASSESSMENT COMPLETED, PT OPENING EYES OCCASIONALLY WHEN REPOSITIONING, CONTINUES TO MOVE RIGHT ARM AND RIGHT LEG SPONTANEOUSLY, NOT FOLLOWING COMMANDS AT THIS TIME, CM-SB @ 55, TITRATING NITROGLYCERIN AND CLEVIPREX TO KEEP SBP<160, NO DISTRESS NOTED, WILL CONT TO MONITOR FOR CHANGES.
--- NOTE | 2018-06-18 04:45 | NUR ---
COMPLETE BATH AND LINEN CHANGE PROVIDED, SCDS LEFT OFF FOR BREAK AT THIS TIME, RIGHT FOREARM PIV DC'D WITH CATH TIP INTACT, WALKER CARE PROVIDED, PT REPOSITIONED UP IN BED, EXT'S ELEVATED ON PILLOWS.
--- NOTE | 2018-06-18 05:00 | NUR ---
PT REPOSITIONED UP AND ONTO LEFT SIDE SUPPORTED WITH PILLOW, HEELS BRIDGED.
[2018-06-18 05:54] LABS: HEMATOCRIT 29.7 % (42.0-54.0); HEMOGLOBIN 10.2 g/dL (13.5-17.5); MCHC 34.3 g/dL (31.0-37.0); MCV 87.4 fL (80.0-100.0); RBC 3.4 10x6/uL (4.20-6.10); RDW 13.4 % (11.5-14.5); WBC 13.1 10x3/uL (4.8-10.8)
--- NOTE | 2018-06-18 06:00 | NUR ---
AM MEDS GIVEN, SERUM K 3.6, 5MEQ KCL GIVEN PER STANDING ORDER, SPOKE WITH DAUGHTER IN LAW BY PHONE AND UPDATE PROVIDED AFTER PASSWORD VERIFIED, PT RESTING ON VENT, NO CHANGES IN STATUS AT THIS TIME, WILL REPORT TO ONCOMING SHIFT.
[2018-06-18 06:05] LABS: CALCIUM 8.4 mg/dL (8.5-10.1); CARBON DIOXIDE 22.6 mmol/L (21.0-32.0); CREATININE - SERUM 2.7 mg/dL (0.6-1.3); POTASSIUM - SERUM 3.6 mmol/L (3.5-5.1)
--- NOTE | 2018-06-18 15:59 | NUR ---
1245-DR FITZGERALD AT [facility]-REVIEWED CURRENT STATUS AND NUERO ASSESSMENT WITH DR FITZGERALD-FAMILY PRESENT-DISCUSSED COURSE OF EVENTS AND TREATMENT- 1310-PT TRANSPORTED WITH TEAM TO CT SCAN-PORT VENT AND MONITOR -CT OF HEAD COMPLETED-AIR OVERLAY PLACED ON BED AND PT MOVED TO BED FROM CT TABLE-NO RANDOM MOVEMENTS AT THIS TIME- 1340RETURN TO AND SET UP TO MONITOR AND VENTILATOR IN PROGRESS-DR FITZGERALD SPOKE WITH FAMILY AND DISCUSSED FINDINGS --PT HOB PLACED AT 30 DEGREES-DR THURMAN PGID VIA ANSWERING SERVICE FOR NUERO CONSULTATION- 1415-RETURN CALL FROM DR THURMAN -STATUS REPORT GIVEN-RECOMMENDATIONS RECIEVED AND INFORMED DR FITZGERALD OF SAME-LASIX 40MG IVP GIVEN ORDERED BY DR THURMAN-TOTAL IV FLUID AT 120 1430-RECIEVED CALL FROM DR FITZGERALD-DIRECTED TO KEEP SYS BP<130--NITROGLYCERIN AND CLEVIPREX GTTS TITRATED FOR SAME-PLASMALYTE AT 75ML/H
--- NOTE | 2018-06-18 20:00 | NUR ---
REPORT RECEIVED CARE ASSUMED INITIAL SHIFT ASSESSMENT COMPLETED SEE FLOWSHEET. PT WITH NOTEABLE NEUROLOGICAL DIFICITS. RIGHT LEG WITH GROSS MOTOR MOVEMENTS. NO RESPONSE TO VERBAL COMMANDS, POSITIVE RESPONSE TO TACTILE STIMULI, LEFT LEG WITH BARELY PERCEPTIBLE MOVEMENT IN RESPONSE TO TACTILE STIMULI. ARMS WITH ESSENTIALLY NO MOVEMENT AND FLACCID WHEN PICKED UP AND MOVED. PT IS CURRENTLY ON MECHANICAL VENTILATION PER ETT. SETTINGS AND CHANGES PER FLOWSHEET. OGT CLAMPED AT THIS TIME. MEDIALSTINAL CHEST TUBES TO CLOSED DRAINAGE SYSTEM WITH 20CM SUCTION (NO AIR LEAK NOTED) DRAINING SEROSANG FLUID. SOPHIE DRAIN NEEDING EMPTYING. WAS RECENTLY EMPTIED, WILL MONITOR FOR INCREASE IN OUTPUT AMOUNTS. PT HAS CRITICORE F/C AND HOURLY I&O ARE BEING RECORDED. PT IS BEING MONITORED PER STANDARD CVICU PROTOCOL WITH ALL ALARMS SET, VERIFIED AND AUDIBLE AT NURSES STATION. PT IS TOTAL CARE AT THIS TIME AND ALL ADL'S ARE PROVIDED FOR HIM. PT IS ON AIR OVERLAY DUE TO 4-5 VERY SMALL INTACT BLISTERS ON INNER RIGHT BUTTOCKS. CVP AND A-LINE LEVELED AND ZEROED PER PROTOCOL. BED IN LOW POSITION AND PT IS VISIBLE FROM NURSES STATION. ALL IVF AND RATES DOCUMENTED ON IF GTT FLOWSHEET. IVF AND FLUIDS ARE CURRENT AND ARE DATED AND TIMED APPROPRIATE. WILL CHART ALL TUBING CHANGES ON AUG WHEN IVF HUNG WITH NEW TUBING.
--- NOTE | 2018-06-18 20:45 | NUR ---
HS MEDS GIVEN AFTER VERIFYING PLACEMENT OF OGT WITH AIR BOLUS. NO GASTRIC RESIDUAL NOTED. MEDS GIVEN AND FLUSHED PER PROTOCOL AND DOCUMENTED ON AUG. NO VISITORS AT THIS TIME.
--- NOTE | 2018-06-18 23:00 | NUR ---
SHIFT REASSESSMENT COMPLETED SEE FLOWSHEET. NO SIGNIFICANT CHANGES.
[2018-06-19] VITALS (96 sets, daily range): BP systolic 101–154; BP diastolic 41–69; Ht 175.3 cm; Wt 104.1 kg
--- NOTE | 2018-06-19 01:00 | NUR ---
PT RESTING AT THIS TIME. TOLERATING VENT WELL
--- NOTE | 2018-06-19 03:00 | NUR ---
SHIFT REASSESSMENT COMPLETED. PT DOES PULL BACK IN RESPONSE TO PAIN IN ALL EXTREMETIES USING THE SHOULDER/UPPER ARM MUSCLES IN ARMS AND ONLY RESPONSES TO DEEP STIMULI. PULLS BACK QUICKLY TO MODERATE STIMULI TO LEFT LEG AND CONTINUES TO HAVE RANDOM MOVEMENTS OF RIGHT LEG RESPONDING QUICKLY TO EVEN LIGHT TOUCH TO BOTTOM OF FEET. PUPILS REMAIN UNEQUAL BUT REACTIVE. PT TURNING HEAD TO LEFT SIDE AND CONTINUES TO TRY TO TURN THAT WAY EVEN WHEN SUPPORTED IN A MORE ALIGNED POSITION. CONTINUEING TO TITRATE CLEVIPREX TO MAINTAIN SBP <130 SEE FLOWSHEETS FOR ALL CHANGES AND RATES. PT REMAINS TOTAL CARE AND IS BEING REPOSITIONED Q2H WITH PILLOWS USED TO RELIEVE PRESSURE, PROVIDE SUPPORT, ELEVATE ARMS AND FLOAT HEELS. TUBING TO CLEVIPREX WAS CHANGED TONIGHT, TIMED AND DATED. PLASMOLYTE TUBING CHANGED AT THIS TIME. ALL CHANGES RECORDED ON AUG WHEN NEW IVF HUNG.
--- NOTE | 2018-06-19 04:07 | NUR ---
RT AT BEDSIDE FOR AM ABG'S FSBS DONE 146 RECORDED ON POC LAB FLOWSHEET
--- NOTE | 2018-06-19 04:10 | NUR ---
RT INCREASING FIO2 BASED ON ABG'S
[2018-06-19 06:20] LABS: HEMATOCRIT 27.4 % (42.0-54.0); HEMOGLOBIN 9.6 g/dL (13.5-17.5); MCH 30.1 pg (26.0-34.0); MCV 85.9 fL (80.0-100.0); MEAN PLATELET VOLUME 10.1 fL (7.4-10.4); RBC 3.19 10x6/uL (4.20-6.10)
[2018-06-19 06:25] LABS: ANION GAP 18.6 mmol/L (8-16); CALCIUM 8.2 mg/dL (8.5-10.1); CARBON DIOXIDE 24.6 mmol/L (21.0-32.0); CREATININE - SERUM 2.8 mg/dL (0.6-1.3); POTASSIUM - SERUM 3.2 mmol/L (3.5-5.1)
--- NOTE | 2018-06-19 07:00 | NUR ---
REPORT RECEVIED FROM THE OFF GOING RN. SEE ASSESSMENT IN THE PTS FLOW SHEET. PT ON THE VENT. PT NON RESPONSIVE TO VERBAL STIMULI. PT IS HOWEVER RESPONDING TO PAINFULL STIMULI MORE SO TO THE RIGHT SIDE THAN THE LEFT. RIGHT PUPIL 5MM AND FIXED. LEFT PUPIL 3MM AND BRISK. VSS AT THIS TIME. RIGHT IJ CVL NOTED. SEE FLOW SHEE FOR FLUIDS. MIDSTERNAL DRESSING C/D/I. SUBSTERNAL DRESSING C/D/I. CT X2 AND A L SOPHIE DRAIN NOTED. SOPHIE COMPRESSED. BOTH DRAINS NOTED TO HAVE SEROUSANGIOUS DRAINAGE. TPM WIRES CONNECTED TO TPM. VVI RATE 40 SENS. 0.8 VMA 10. PT SINUS CINTHYA AT 50. FC NOTED. CALL LIGHT IN REACH. WILL CONT POC.
--- NOTE | 2018-06-19 07:30 | NUR ---
PO TYLENOL GIVEN FOR TEMP. FAN PROVIDED AND TURNED ON BLOWING ON THE PT. WILL MONITOR.
--- NOTE | 2018-06-19 08:00 | NUR ---
PT SINUS CINTHYA AND SENSING ON THE TPM. DR FITZGERALD NOTIFIED ABOUT THE SCHEDUALED SOTOLOL. DR FITZGERALD STATED TO GIVE IT.
--- NOTE | 2018-06-19 09:25 | NUR ---
DR THURMAN CALLED AND MADE AWARE OF THE CONSULT AND UPDATED ON THE PTS CONDITION.
--- NOTE | 2018-06-19 09:30 | NUR ---
DR FITZGERALD STATED TO GIVE RETACL TYLENOL. HE IS AWARE THAT THE PT HAS HAD PO DOSE ALREADY. IT WAS GIVEN. DR CH NURSES, CORNELIUS AND EDIN RN, PULLED CT X2 PER DR FITZGERALD. THEY CHANGED THE SUBSTERAL DRESSING PER ORDERS. WILL CONT PCO.
--- NOTE | 2018-06-19 09:35 | NUR ---
ICE PACKS PLACED UNDER THE PTS AXILLARY AND GROIN.
--- NOTE | 2018-06-19 11:07 | OP ---
PATIENT NAME: ADRIAN RHODES MEDICAL RECORD: [id number] :45 LOCATION:D.CVI D.CV03 ADMISSION DATE:06/16/18 SURGEON: JM GONZALEZ MD DATE OF OPERATION: 06/16/2018 SURGEON: Jm Gonzalez MD TINNING MACHINE SET UP OPERATOR: KLAUS Baeza MD and JANES Mae OPERATION PERFORMED: 1. Coronary artery bypass graft times 3 (left internal mammary artery to LAD, reverse saphenous vein graft from aorta to posterolateral branch right coronary artery and aorta to obtuse marginal). 2. Endoscopic saphenous vein harvest. 3. Placement of left atrial appendage occlusion device. 4. Bilateral pulmonary vein radiofrequency ablation. PREOPERATIVE DIAGNOSIS: Coronary artery disease with unstable angina. POSTOPERATIVE DIAGNOSIS: Coronary artery disease with unstable angina. ANESTHESIA: General endotracheal anesthesia. ESTIMATED BLOOD LOSS: Total cardiopulmonary bypass with Cell Saver retransfusion. SPECIMENS: None. CONDITION: Stable. DISPOSITION: CV ICU. OPERATIVE FINDINGS: 1. Good quality greater saphenous vein from the left thigh, somewhat smaller in the calf and not harvested. The patient has a previous right femoral popliteal bypass. 2. Good quality internal mammary artery. 3. Large heart without significant LVH, dilated left atrium. 4. LAD with a 2.0-mm vessel. 5. Obtuse marginal 1.5-mm vessel with significant distal disease. 6. The posterior descending artery was calcified throughout and not bypassable. The posterolateral branch of the right coronary was slightly larger, was bypassed between plaque, was a 1.5-mm vessel. 7. Bilateral pulmonary vein radiofrequency ablation. 8. Placement of left atrial appendage occlusion device. INDICATION: Atrial fibrillation, coronary artery disease, history of percutaneous coronary intervention. DESCRIPTION OF PROCEDURE: The patient was brought to the operating suite. General anesthesia was obtained. The patient was prepped and draped. Endoscopic vein harvest of left thigh was performed, side branches were divided with electrocautery. Vessel ligated proximal and distally removed. Side branches were tied. Leg was closed with 2 layers and wrapped with an elastic wrap. OPERATIVE REPORT [id number] ADRIAN RHODES Mediastinotomy incision was made. Subcutaneous tissue divided with electrocautery. The sternum was divided with a saw. Left hemisternum was elevated. The left pleural cavity was entered. Left internal mammary vein was taken as a pedicle graft. Sternum was opened. Pericardium was opened. Heparin was given. Aorta was cannulated. Dual-stage venous cannula was inserted. The internal mammary was clipped distally and made ready for anastomosis. The patient was placed on cardiopulmonary bypass. Sites for distal anastomosis were selected due to the large size of the heart. The left pulmonary veins could not easily be visualized, but with the heart still beating in the patient normothermic, the right pulmonary veins were dissected out and the AtriCure radiofrequency ablation device was used. Retrograde cardioplegia cannula was then inserted. Antegrade cardioplegic cannula was inserted. The patient was cooled. Crossclamp was placed. Cardioplegia was given antegrade and retrograde and this was repeated at 15-minute intervals including down the completed vein grafts. The left pulmonary veins were dissected out and the radiofrequency ablation performed. A 45-mm left atrial appendage occlusion device was placed at the base of the left atrial appendage. Distal anastomoses were then performed in a standard technique, proximal anastomosis with single cross-clamp technique. Aortic root de-aired. Crossclamp removed. Proximal anastomoses tied down. The vein graft was de-aired and flow restored. Proximal and distal anastomotic sites inspected for bleeding. The patient was paced ventricularly, three ventricular pacing wires were placed, and with the patient fully rewarmed, weaned from cardiopulmonary bypass and was stable. The patient was decannulated. Aortic cannulation site was oversewn with pledgeted Prolene suture. Protamine was given. Thorough irrigation was undertaken. Grafts lay appropriately. Hemostasis was assured. A drain was placed in the mediastinum and left pleural cavity. Pericardial fat was loosely reapproximated. The left chest was evacuated and irrigated. The internal mammary harvest site was assured to be hemostatic. Sternum was closed with wires. Fascia was closed. Subcutaneous tissue was closed. Skin was closed. Dermabond was placed. The needle and sponge counts were correct and the patient was taken to ICU in stable condition. TRANSINT:[id number] Voice Confirmation ID: [id number] DOCUMENT ID: [id number] JM GONZALEZ MD at 1107 CC: [id number] WUREY [id number] DICTATION DATE: 06/16/18 1423 IN HOME BABY SITTER: 06/16/18 [address] [facility] [place] [address]
--- NOTE | 2018-06-19 11:30 | NUR ---
PT WILL OCCASIONALLY PACE AND THEN RATE JUMPS UP TO 60 AND THEN DECREASES TO 40, CAUSING THE PACEMAKER TO FIRE. PT'S BP STABLE. DR FITZGERALD NOTIFIED AND AWARE. NO NEW ORDERS.
--- NOTE | 2018-06-19 12:28 | NUR ---
PT HEART RATE DROPPING DOWN TO 40 AND THEN STARTS TO PACE. PT WILL HAVE FREQUENT PVC'S. DR FIERRO NURSES NOTIFIED AND SPOKE TO THE DR GONZALEZ. WAS INSTRUCTED TO INCREASE PACEMAKER TO VVI RATE OF 80.
--- NOTE | 2018-06-19 12:52 | NUR ---
Reviewed chart and spoke with nursing REC: NPO >/=3d, may want to consider alternate nutrition support RD following
--- NOTE | 2018-06-19 14:30 | NUR ---
DR GONZALEZ SPOKE WITH THE FAMILY IN THE CONFERENCE ROOM. SON AND DAUGHTER, DR LISA SHIELDS RN AND I WERE IN THE ROOM. DR GONZALEZ EXPLAINED TO THE FAMILY ABOUT THE PTS CONDITION AND ACUTE CVA. DR GONZALEZ EXPLAINED TO THE FAMILY THAT THE PROGNOSIS IS POOR. THE FAMILY TOOK IT WELL AND HAD SOME QUESTIONS FOR DR GONZALEZ IN WHICH HE ANSWERED FOR THEM.
--- NOTE | 2018-06-19 15:30 | NUR ---
SPOKE WITH NONA FROM [facility]. THE ARE GOING TO FIGURE OUT TUBE FEEDINGS RECOMENDATION PER DR GONZALEZ.
--- NOTE | 2018-06-19 16:00 | NUR ---
N.O FOR PULMOCARE 20ML/H WITH 30ML OF H2O FLUSHES BID PER DIATICIAN.
--- NOTE | 2018-06-19 16:45 | NUR ---
PT DESATING. THICK SECREATIONS SUCTION FROM ETT. RT CALLED AND NOTIFIED. FIO2 INCRASED TO 70%. SPO2 STABALIZED.
--- NOTE | 2018-06-19 19:08 | NUR ---
REPORT RECEIVED, SHIFT ASSESSMENT COMPLETED PER FLOW SHEET. ON VENT VIA ETT. AROUSES TO DEEP STIMULI. RADIAL PULSES PALPABLE, PEDAL PULSES AUDIBLE VIA DOPPLER. HR 80, TPM AT VVI 80, VMA 10, SENSITIVITY 0.8. RT IJ CVL PATENT, INFUSING NITROGLYCERIN AT 30 MLS/HR, PATIENT STILL HYPERTENSIVE, CLEVIPREX INITIATED AT 1 MG/HR, WILL TITRATE PER DOCTOR'S ORDERS. RT RADIAL ARTERIAL LINE LEVELED AND ZEROED WITH GOOD WAVEFORM. CVP LEVELED AND ZEROED WITH GOOD WAVEFORM. OGT CLAMPED, PLACEMENT VERIFIED VIA AUSCULTATION. LT SUBSTERNAL CT TO SOPHIE DRAIN, COMPRESSED, SEROSANGUINEOUS OUTPUT NOTED. SEE FLOW SHEET FOR COMPLETE ASSESSMENT. WILL CONTINUE TO MONITOR.
--- NOTE | 2018-06-19 20:40 | NUR ---
OGT PLACEMENT VERIFIED VIA AUSCULTATION, PULMOCARE FEEDINGS INITIATED PER DOCTOR'S ORDERS. WILL CONTINUE TO MONITOR.
--- NOTE | 2018-06-19 21:09 | NUR ---
HR VERY LABILE, RANGING FROM HIGH 50'S-70'S, PACEMAKER FAILING TO CAPTURE. CALLED AND SPOKE TO DR. GONZALEZ, ORDERS RECEIVED TO INCREASE VMA TO 15, VMA INCREASED TO 15 AND HR STABALIZED AT 80. WILL CONTINUE TO MONITOR.
--- NOTE | 2018-06-19 23:01 | NUR ---
REASSESSMENT COMPLETED PER FLOW SHEET, SEE FOR DETAILS. PACED RHYTHM RATE OF 80. AROUSES TO DEEP STIMULI. RADIAL PULSES PALPABLE, PEDAL PULSES WEAK TO PALPATION. SEE FLOW SHEET FOR COMPLETE ASSESSMENT. WILL CONTINUE TO MONITOR. ORAL CARE PROVIDED. REPOSITIONED IN BED.
[2018-06-20] VITALS (91 sets, daily range): BP systolic 108–151; BP diastolic 40–63
--- NOTE | 2018-06-20 01:00 | NUR ---
NO ACUTE CHANGES NOTED. REPOSITIONED IN BED. ORAL CARE PROVIDED. WILL CONTINUE TO MONITOR.
--- NOTE | 2018-06-20 02:20 | NUR ---
PATIENT DESATING TO 87%, SUCTION PROVIDED, O2 SENSOR REPOSITIONED, REPOSITIONED IN BED, O2 SAT BETWEEN 86-90% AFTER INTERVENTIONS. FIO2 INCREASED TO 100% PER RT. WILL CONTINUE TO MONITOR.
--- NOTE | 2018-06-20 03:00 | NUR ---
REASSESSMENT COMPLETED PER FLOW SHEET, SEE FOR DETAILS. ORAL CARE PROVIDED. REPOSITIONED IN BED. WILL CONTINUE TO MONITOR.
--- NOTE | 2018-06-20 05:00 | NUR ---
SUBSTERNAL DRESSING CHANGED. TEMPORARY PACEMAKER WIRES NOTED, SUTURES INTACT. X1 CT TO SOPHIE DRAIN NOTED, SUTURES INTACT. REPOSITIONED IN BED. ORAL CARE PROVIDED. WILL CONTINUE TO MONITOR.
[2018-06-20 06:27] LABS: HEMATOCRIT 29.7 % (42.0-54.0); HEMOGLOBIN 10.5 g/dL (13.5-17.5); MCHC 35.4 g/dL (31.0-37.0); MCV 84.9 fL (80.0-100.0); MEAN PLATELET VOLUME 10.5 fL (7.4-10.4); RBC 3.5 10x6/uL (4.20-6.10); RDW 12.9 % (11.5-14.5); WBC 9.6 10x3/uL (4.8-10.8)
[2018-06-20 06:42] LABS: CALCIUM 8.2 mg/dL (8.5-10.1); CARBON DIOXIDE 24.5 mmol/L (21.0-32.0); CREATININE - SERUM 2.5 mg/dL (0.6-1.3)
[2018-06-20 06:57] LABS: POTASSIUM - SERUM 2.5 mmol/L (3.5-5.1)
--- NOTE | 2018-06-20 07:00 | NUR ---
REPORT RECEVIED FROM THE OFF GOING RN. SEE ASSESSMENT IN THE PTS FLOW SHEET. PT REMAINS UNRESPONSIVE TO VERBAL STIMULI AND ONLY MOVES TO PAINFUL STMULI. RIGHT EYE 5MM AND FIXED. LEFT EYE 3MM AND FIXED. PT ON THE VENTILATOR. RIGHT IJ DRESSING C/D/I. SEE IV FLUIDS. TPM NOTED. PACING AT 80 BPM. OTHER VSS. MIDSTERNAL DRESSING C/D/I. SUBSTERNAL DRESSING C/D/I. LEFT SUBSTERNAL SOPHIE DRAIN NOTED AND COMPRESSED. SCANT AMOUNT OF SEROUSANGIOUS DRAINAGE NOTE. FC NOTED WITH CLEAR, YELLOW URNIE. LEFT LEG HARVEST INCISION WELL APPROXIMATED AND SHOWS NO S/SX OF INFECTION. NO DRAINAGE NOTED. OPEN TO AIR. VSS AT THIS TIME. CALL LIGHT IN REACH. WILL CONT POC.
--- NOTE | 2018-06-20 07:17 | NUR ---
CALLED AND SPOKE TO DR. GONZALEZ, UPDATE GIVEN ON PATIENT STATUS, INFORMED HIM OF CRITICAL K+, ORDERS RECEIVED TO HOLD 0900 LASIX, HE STATED HE WILL BE IN THE UNIT THIS AM.
--- NOTE | 2018-06-20 07:30 | NUR ---
DR GONZALEZ AT THE PTS BEDSIDE. DR GONZALEZ ADJUSTED THE PACEMAKER SETTINGS. VVI 30 SENSITIVTY 2.0 VMA 10. PT SENSING ONLY. PT BRADYCARDIC FROM 52-60. BP STABLE. OFF NITRO AND TITRATING CLEVIPREX. ORDERS TO GIVE IV KCL 40MEQ OVER 2 HOURS AND RECHECK BMP. HOLD LASIX AND GIVE PLASMALYTE AT 30 ML/H.
--- NOTE | 2018-06-20 08:05 | NUR ---
DR GONZALEZ STATED TO CALL FOR A PICC LINE CONSULT. I VERIFIED IF HE WANTED A PICC OR A MIDLINE AND HE STATED A PICC LINE. VASCULAR ACCESS CONSULT FOR PICC LINE PLACEMENT ORDERED.
--- NOTE | 2018-06-20 08:29 | NUR ---
SPOKE WITH JO'S . SHE STATED THAT SHE WISHES THAT THE PTS EX , ANIBAL RHODES, NOT SEE THE PT. "WE ARE ATTEMPTING TO TALK TO HER DAUGHTER AND TRY TO MAKE IT WHERE ANIBAL DOES NOT COME BACK HERE, BUT JO IS STRESSED OUT ENOUGH AND THERE IS CONFLICT BETWEEN THEM TWO." I EXPLAINED THAT I WILL LET MY CHARGE NURSE KNOW AND PUT UP A "PLEASE SEE NURSE SIGN" IN FRONT OF HIS DOOR.
--- NOTE | 2018-06-20 09:23 | NUR ---
Reviewed chart and spoke with nursing Pt started on Pulmocare at 20mL/hour yesterday Pt is tolerating TF with no residuals. Increased rate to 30mL/hour today Flushes of 30mL H20 BID RD following
--- NOTE | 2018-06-20 09:41 | NUR ---
DIATICIAN AT THE PTS BEDSIDE. NO RESIDUAL NOTED. SHE RECOMENDED TO INCRASE PULMOCARE TO 3O CC/H.
--- NOTE | 2018-06-20 12:14 | NUR ---
RENAL CONSTRUCTION JOB COST ESTIMATOR AT THE PTS BEDSIDE.
[2018-06-20 12:25] LABS: ALBUMIN 2.1 g/dL (3.4-5.0); ANION GAP 16.4 mmol/L (8-16); BILIRUBIN - TOTAL 0.35 mg/dL (0.2-1.3); CALCIUM 8.1 mg/dL (8.5-10.1); CARBON DIOXIDE 27.8 mmol/L (21.0-32.0); CREATININE - SERUM 2.6 mg/dL (0.6-1.3); PROTEIN - SERUM 5.8 g/dL (6.4-8.2)
[2018-06-20 12:26] LABS: POTASSIUM - SERUM 3.2 mmol/L (3.5-5.1)
[2018-06-20 12:27] LABS: MAGNESIUM - SERUM 2.1 mg/dL (1.8-2.4); VANCOMYCIN - TROUGH 12.6 ug/mL (10.0-20.0)
--- NOTE | 2018-06-20 13:29 | NUR ---
SPOKE WITH DR GONZALEZ ABOUT MANNITOL ORDER. SAYS IS OK TO GIVE.
--- NOTE | 2018-06-20 14:10 | NUR ---
CORA JO CANTRELLGENS LISTED NOK/EMERGENCY CONTACT. CALLED TO REQUEST CONSENT TO PLACE NEW PICC LINE. CONSENT GRANTED AND WITNESSED BY JORGE CANASSHUTTLE VENEERING SUPERVISOR.
--- NOTE | 2018-06-20 14:17 | NUR ---
VASCULAR ACCESS NURSE AT BEDSIDE AT THIS TIME.
--- NOTE | 2018-06-20 15:36 | NUR ---
VASCULAR ACCESS NURSE REMAINS AT BEDSIDE TO GET PICC LINE PLACED.
--- NOTE | 2018-06-20 17:00 | NUR ---
DR FENTON HAS BEEN BY. DISCUSSED WITH DAUGHTER IN LAW PROGNOSIS OF PATIENT. ANSWERED ALL QUESTIONS.
--- NOTE | 2018-06-20 18:06 | NUR ---
ALL NEW LINES AND MEDICATION SETS CHANGED OUT FOR PICC LINE USE. CVL AT RIGHT IJ REMOVED, TIP INTACT. SMALL AMOUNT OF BLEEDING.
--- NOTE | 2018-06-20 19:07 | NUR ---
REPORT RECEIVED, SHIFT ASSESSMENT COMPLETED PER FLOW SHEET. ON VENT VIA ETT. AROUSES TO DEEP STIMULI. OGT PATENT INFUSING PULMOCARE AT 30 MLS/HR WITH 15 MLS H20 FLUSH Q6H, 0 MLS RESIDUAL, PLACEMENT VERIFIED VIA AUSCULTATION. RT UPPER ARM PICC LINE NOTED, NO SIGNS OF INFECTION OR INFILTRATION, DRESSING C/D/I. RT RADIAL ARTERIAL LINE ZEROED AND LEVELED, GOOD WAVEFORM. WALKER CATHETER TO GRAVITY SECURED. SEE FLOW SHEET FOR COMPLETE ASSESSMENT. WILL CONTINUE TO MONITOR.
--- NOTE | 2018-06-20 20:56 | NUR ---
SCHEDULED MEDS GIVEN, DAUGHTER AND GRANDAUGHTER AT BEDSIDE, UPDATE GIVEN, QUESTIONS ANSWERED.
--- NOTE | 2018-06-20 21:30 | NUR ---
MARIANELA AND GRANDAUDIOR AT BEDSIDE. NO ACUTE CHANGES NOTED. WILL CONTINUE TO MONITOR.
--- NOTE | 2018-06-20 23:31 | NUR ---
URINE SPECIMEN COLLECTED AND SENT TO LAB
[2018-06-21] VITALS (93 sets, daily range): BP systolic 83–170; BP diastolic 41–64
--- NOTE | 2018-06-21 01:00 | NUR ---
NO ACUTE CHANGES NOTED. ORAL CARE PROVIDED. REPOSITIONED IN BED. WALKER CARE PROVIDED. WILL CONTINUE TO MONITOR.
--- NOTE | 2018-06-21 03:11 | NUR ---
REASSESSMENT COMPLETED PER FLOW SHEET, SEE FOR DETAILS. ORAL CARE PROVIDED. REPOSITIONED IN BED. WILL CONTINUE TO MONITOR.
--- NOTE | 2018-06-21 05:00 | NUR ---
SUBSTERNAL DRESSING CHANGED. TPM WIRES NOTED, SUTURES INTACT. X1 CT TO SOPHIE DRAIN NOTED, SUTURES INTACT. NO ACUTE CHANGES NOTED. WILL CONTINUE TO MONITOR.
[2018-06-21 06:32] LABS: HEMATOCRIT 29.8 % (42.0-54.0); HEMOGLOBIN 10.4 g/dL (13.5-17.5); MCH 30.1 pg (26.0-34.0); MCHC 34.9 g/dL (31.0-37.0); MCV 86.1 fL (80.0-100.0); MEAN PLATELET VOLUME 10.7 fL (7.4-10.4); RBC 3.46 10x6/uL (4.20-6.10); RDW 12.9 % (11.5-14.5); WBC 9.3 10x3/uL (4.8-10.8)
[2018-06-21 06:46] LABS: ANION GAP 18.1 mmol/L (8-16); CALCIUM 8.2 mg/dL (8.5-10.1); CARBON DIOXIDE 23.9 mmol/L (21.0-32.0); CREATININE - SERUM 2.4 mg/dL (0.6-1.3)
--- NOTE | 2018-06-21 07:58 | NUR ---
REPORT RECEIVED. SHIFT ASSESSMENT COMPLETE. PT REPOSITIONED TO RIGHT SIDE. WEAK PEDAL PULSES NOTED. NO RESPONSE TO VOICE. INWARD PULLING OF LIMBS IN RESPONSE TO PAINFUL STIMULI. NO PUPILARY RESPONSE.
--- NOTE | 2018-06-21 08:20 | NUR ---
SON AND DAUGHTER IN LAW AT BEDSIDE. SAYS WILL ALLOW PT EX- ANIBAL TO COME ONLY FOR TODAY'S NOONTIME VISIT IF SHE IS BRINGING UP HER SON TO SEE PATIENT. NO OTHER TIME IS SHE ALLOWED TO VISIT.
--- NOTE | 2018-06-21 09:08 | NUR ---
DR THURMAN BY EXAMINED PATIENT. SPOKE WITH DR GONZALEZ AND WITH FAMILY. AGREED TO GIVE PT SEVERAL MORE DAYS TO RECOVER TO SEE HOW STATUS IS.
--- NOTE | 2018-06-21 09:40 | NUR ---
RESIDUAL CHECKED. NONE. FLUSHED WITH 30ML. RECHECKED. NO RESIDUAL.
--- NOTE | 2018-06-21 10:52 | NUR ---
Spoke with nursing and reviewed chart Pt tolerating TF at 30mL/hour with no residuals Increased TF to 40mL/hour. May advance as tolerated to a goal rate of 50mL/hour Pulmocare at 50mL/hour provides 1800 calories, 75gm protein and 942mL H20 Flush with water 30mL BID Based on current labs and conversation with nurse, will not add fluids Request Renal add additional fluids if needed-spoke with nurse RD following
--- NOTE | 2018-06-21 12:51 | NUR ---
DAUGHTER AT BEDSIDE WITH HER TWO TEENAGERS. ALL QUESTIONS ANSWERED. PT ANTIBIOTICS HUNG AND STARTED PER ORDER.
--- NOTE | 2018-06-21 14:39 | NUR ---
DR FENTON BY TO SEE PATIENT. LET HIM KNOW RESULTS OF REPEAT POTASSIUM OF 3.3. ORDERED 40MEQ POTASSIUM TO RUN OVER 4 HOURS.
--- NOTE | 2018-06-21 17:14 | NUR ---
FIO2 CHANGED TO 60% WITH SATURATION OF 94% AT [address] GONZALEZ
--- NOTE | 2018-06-21 17:17 | NUR ---
DR GONZALEZ NOTIFIED PT HR CHANGE AND NOW SR/ST IRREGULAR. SHOWED EKG. A-FIB.
--- NOTE | 2018-06-21 19:20 | NUR ---
REPORT RECEIVED CARE ASSUMED. INITIAL SHIFT ASSESSMENT COMPLETED SEE FLOWSHEET. PT IS NONRESPONSIVE TO PAINFUL STIMULI AND NOT BREATHING OVER THE VENT. REMAINS ON MECHANICAL VENTILATION SETTINGS AND CHANGES PER FLOWSHEET. PT IS AT THIS TIME TOTAL CARE FOR ALL ADLS AND IS TURNED AND REPOSITIONED WITH PILLOWS USED TO RELIEVE PRESSURE, PROVIDE SUPPORT, ELEVATE ARMS AND FLOAT HEELS Q2H AND PRN. PT IS ON AIR OVERLAY MATTRESS WITH HOB ELEVATED. VAP PROTOCOL BEING FOLLOWED. PT MONITORED PER STANDARD CVICU PROTOCOL WITH ALL ALARMS SET, VERIFIED AND AUDIBLE AT NURSES STATION. IVF AND IV LINES ARE CURRENT AND LABELED APPROPRIATE. IVF AND RATES/CHANGES PER GTT FLOWSHEET. NOTE SPO2 88% PT ON FIO2 60% RT NOTIFIED OF DECREASED OXYGEN AND FIO2 ADJUSTED TO 100%. NOTE THE B/P 109/50 DECREASING CLEVIPREX ACCORDINGLY.
--- NOTE | 2018-06-21 19:30 | NUR ---
DR GONZALEZ CALLED AND NOTIFIED PT HAS NEURO CHANGES. PT NO LONGER BREATHING OVER THE VENT AND IS BREATHING AT SET RATE OF 10 BPM. PT ALSO NO LONGER RESPONDING TO PAINFUL STIMULI. NO NEW ORDERS RECEIVED.
--- NOTE | 2018-06-21 19:37 | NUR ---
CALLED DR THURMAN AND NOTIFIED HIM OF PT NEURO CHANGE. DISCUSSED PT'S EPISODE OF INCREASED HR AND SUBSEQUENT RETURN TO PREVIOUS 50s RATE. PT ALSO NO LONGER BREATHING OVER THE VENT OR RESPONDING TO PAINFUL STIMULI. ASKED WHAT PT PUPILS LOOKED LIKE AT THIS TIME. BOTH ARE NOW DILATED AT APPROX 5MM AND FIXED. ASKED FOR NULCEAR BLOOD FLOW STUDY TO BE PERFORMED IN THE MORNING AND THEN WILL SPEAK WITH THE FAMILY.
--- NOTE | 2018-06-21 19:45 | CN ---
PATIENT NAME:ADRIAN DICKERSON MEDICAL RECORD: [id number] : 45 LOCATION:[id number].CVID.[id number] ADMIT DATE: 06/16/18 ACCOUNT: [id number] CONSULTING PHYSICIAN: SCAR COOK MD REFERRING PHYSICIAN: JOSE LUIS GONZALEZ MD DATE OF CONSULTATION: 06/19/2018 CONSULT REQUESTING PHYSICIAN: Dougie Baeza MD REASON FOR CONSULTATION: Vent management, CVA. HISTORY OF PRESENT ILLNESS: Mr. Dickerson is a 72-year-old gentleman who underwent a CABG and endoscopic vein harvest on 06/16/2018. The patient was not waking and CT scan of the head was done, which showed acute myocardial infarction with some midline shift. Dr. Masters has been consulted. The patient is orally intubated and sedated and mostly unresponsive. The history was taken mainly by talking to the nursing staff as well as reviewing the patient's note. REVIEW OF SYSTEMS: The detail is not obtainable. PAST MEDICAL HISTORY: 1. Atrial fibrillation. 2. Coronary artery disease. 3. Peripheral vascular disease. 4. Osteoarthritis. ALLERGIES: HE IS ALLERGIC TO SULFA AND ROCEPHIN. MEDICATIONS: On RPost is reviewed. PERSONAL AND SOCIAL HISTORY: The patient is a current everyday smoker. FAMILY HISTORY: Noncontributory. PHYSICAL EXAMINATION: GENERAL: The patient is lying comfortably in bed. He is unresponsive. VITAL SIGNS: The patient is on SIMV rate of 10, tidal volume of 550, PEEP of 5. HEENT: Conjunctivae are pink. Sclerae are not icteric. NECK: Supple, no JVD. CHEST: There are bilateral crackles. No wheezing. HEART: Rate and rhythm is regular, normal sound, no murmur. ABDOMEN: Soft, bowel sounds present. No hepatosplenomegaly. RECTAL: Deferred. EXTREMITIES: No cyanosis, no clubbing. There is 1+ pedal edema. SKIN: Warm, normal turgor. CENTRAL NERVOUS SYSTEM: The patient is orally intubated and sedated. LABORATORY DATA: CBC: WBC is 13.1, hemoglobin 10.2, hematocrit 29.7, the platelet count 204. Chemistry: Sodium 141, potassium 3.2, BUN is 55, creatinine is 2.8. ABG: The pH is 7.48, pCO2 is 33.7, the pO2 is 61, the bicarbonate is 25.6. IMAGING STUDIES: Chest radiograph: There are bilateral lower lobe infiltrate, there are bilateral pleural effusions. CONSULT REPORT [id number] ADRIAN DICKERSON CT scan of the head: There is acute myocardial infarction, right MCA territorial. There is a midline shift at least 4 mm and 5 mm anteriorly. IMPRESSION: 1. Acute respiratory failure. 2. Status post CABG. 3. Bibasilar pneumonia, possible hospital-acquired pneumonia. 4. Bilateral pleural effusion, possible parapneumonic. 5. Acute CVA, secondary to infarction. 6. Coronary artery disease. 7. Dowhk-id-zibgkcd kidney disease. 8. Hypokalemia. 9. Tobacco dependence syndrome, suspect COPD. 10. Bilateral pleural effusion. 11. Atrial fibrillation, status post ablation. 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 13. Peripheral vascular disease. RECOMMENDATION: 1. Continue mechanical ventilation, adjust the setting. 2. DVT and GI bleed prophylaxis. 3. Start empiric antibiotic, vancomycin, and Merrem for the hospital-acquired pneumonia, bilateral infiltrate on the chest x-ray. 4. IV Lasix and Plasma-Lyte per Dr. Masters. 5. Replace electrolytes. 6. Follow up labs and chest radiograph, discussed with RN and RT. Dr. Baeza, thank you for involving me in the care of Mr. Dickerson. The prognosis is guarded. The critical care time is 50 minutes. TRANSINT:[id number] Voice Confirmation ID: [id number] DOCUMENT ID: [id number] SCAR COOK MD at 1945 CC: [id number] DICTATION DATE: 06/19/18 1125 COMPUTER SCIENCE TEACHER: 06/19/18 1327 ADM IN [facility] [address] [id number]
--- NOTE | 2018-06-21 19:48 | NUR ---
CALLED AND SPOKE WITH SON JO AND UPDATED HIM TO PT CHANGE IN STATUS. PT NO LONGER BREATHING OVER THE VENT AND NOT RESPONDING TO PAINFUL STIMULI.
--- NOTE | 2018-06-21 20:00 | NUR ---
CVL DRESSING CHANGED ON RIGHT PICC PER PROTOCOL
--- NOTE | 2018-06-21 20:15 | NUR ---
FAMILY AT BEDSIDE. QUESTIONS ANSWERED. SISTER AT BEDSIDE AND STATES SHE HAD BEEN UPDATED BY HER BROTHER ABOUT PT'S NEW NONRESPONSIVENESS AND TESTING SCHEDULED FOR AM. PT WITH TEMP 35.8C WARM BLANKET APPLIED
--- NOTE | 2018-06-21 23:45 | NUR ---
DR. GONZALEZ CALLED TO NOTIFY THAT SB/P HAS BEEN IN 80"S FOR PAST 30 MINUTES, HR REMAINS IN 40'S AND THAT DR. THURMAN DID ORDER A NUCLEAR CEREBRAL BLOOD FLOW STUDY FOR THE AM. NEW ORDERS TO START NEOSYNEPHRINE AND CHANGE TPM SETTINGS TO VVI 80
[2018-06-22] VITALS (96 sets, daily range): BP systolic 72–138; BP diastolic 42–73
--- NOTE | 2018-06-22 00:15 | NUR ---
PT IS TOLERATING CHANGE IN TPM AND B/P IS IMPROVED. NO OTHER CHANGES AND PT REMAINS UNRESPONSIVE
--- NOTE | 2018-06-22 01:30 | NUR ---
RESIDUAL CHECK 410CC. TUBE FEEDING TURNED OFF
--- NOTE | 2018-06-22 02:15 | NUR ---
LABS DRAWN AND SENT FOR ANALYSIS TO [facility]
--- NOTE | 2018-06-22 02:15 | NUR ---
HR LABILE FROM MID 40'S-80. TPM FAILURE TO CAPTURE. VMA INCREASED TO 15 WAS ORDERED ON 06/19 WITH RESOLUTION OF HR WHICH STABLIZED TO 79
[2018-06-22 02:26] LABS: HEMOGLOBIN 9.7 g/dL (13.5-17.5); MCH 30.1 pg (26.0-34.0); MCHC 34.6 g/dL (31.0-37.0); MEAN PLATELET VOLUME 9.7 fL (7.4-10.4); RBC 3.22 10x6/uL (4.20-6.10); RDW 12.6 % (11.5-14.5); WBC 4.4 10x3/uL (4.8-10.8)
[2018-06-22 02:39] LABS: ALBUMIN 1.6 g/dL (3.4-5.0); ANION GAP 12.8 mmol/L (8-16); BILIRUBIN - TOTAL 0.23 mg/dL (0.2-1.3); CALCIUM 8.3 mg/dL (8.5-10.1); CARBON DIOXIDE 29.8 mmol/L (21.0-32.0); CREATININE - SERUM 2.2 mg/dL (0.6-1.3); POTASSIUM - SERUM 3.6 mmol/L (3.5-5.1); PROTEIN - SERUM 5.3 g/dL (6.4-8.2)
--- NOTE | 2018-06-22 07:57 | NUR ---
NOTIFIED DR GONZALEZ OF 250 RESIDUAL OF GASTRIC CONTENT. PREVIOUS WAS 410 6HR AGO. ORDERED LOW SUCTION. ALSO ORDERED D5 1/2NS +20K AT 75
--- NOTE | 2018-06-22 08:39 | NUR ---
DAUGHTER IN LAW AT BEDSIDE. ALL QUESTIONS ANSWERED. DENIES ANY ADDITIONAL QUESTIONS. WAITING ON BRAIN SCAN AND UPDATE FROM DR THURMAN.
--- NOTE | 2018-06-22 08:50 | NUR ---
RAAD FROM NUCLEAR MEDICINE CALLED. EARLIEST SHE WILL BE ABLE TO DO STUDY WILL BE AROUND 11:30. DID NOT HAVE MEDICATION ON SUPPLY AND HAS TO HAVE BROUGHT IN.
--- NOTE | 2018-06-22 10:30 | NUR ---
NURSE AT BEDSIDE ADMINISTERING MEDICATION. DAUGHTER CONCERNED PT SOUNDS LIKE HE'S SNORING. PT SUCTIONED ORAL AND INLINE. REPOSITIONED FOR COMFORT.
--- NOTE | 2018-06-22 10:34 | NUR ---
Nutrition Follow Up: Chart reviewed and spoke with nursing. Pt with increased residuals; TF is turned off at this time. Wt stable No BM since admit - x 6 days I>O Labs reviewed - Na, Chloride elevated Meds noted including Reglan, D5 1/2NS KCl @ 75 ml/hr providing 306 kcal/d Rec resuming TF as tolerated if medically feasible. RD following.
--- NOTE | 2018-06-22 11:53 | NUR ---
PT OFF UNIT TO [facility]
--- NOTE | 2018-06-22 12:33 | NUR ---
PT RETURNED TO ROOM
--- NOTE | 2018-06-22 13:09 | NUR ---
LAB DRAWN FOR VANC TROUGH
--- NOTE | 2018-06-22 13:29 | NUR ---
FAMILY REQUESTED FROM WAITING ROOM AND TAKEN TO CONFERENCE ROOM TO AWAIT DR GONZALEZ'S UPDATE.
--- NOTE | 2018-06-22 13:39 | NUR ---
DR GONZALEZ IN WITH FAMILY AT THIS TIME.
--- NOTE | 2018-06-22 13:55 | NUR ---
INSTRUCTED BY DR GONZALEZ TO TURN PT PACEMAKER OFF. UNDERLYING RHYTHM IS BRADYCARDIA AT RATE OF 45 FAMILY HAS COME TO DESK TO LET NURSE KNOW THEY ARE GOING TO LEAVE HOSPITAL FOR A LITTLE WHILE TO GET LUNCH. REQUESTS TO BE CALLED WHEN DR THURMAN READY TO TALK TO THEM
--- NOTE | 2018-06-22 14:49 | NUR ---
RECEIVED CALL FROM RAJEEV WITH [facility]. PT RULES OUT FOR ORGAN DONATION, BUT IS POTENTIAL TISSUE DONATION ELIGIBLE. CALL THEM WITH TIME OF FOR FURTHER EVALUATION
--- NOTE | 2018-06-22 19:10 | NUR ---
Report recived, shift assessment complete, please see flow sheets for full details. Patient on vent, not sedated. Pupils 5mm and fixed, no reactions to pain and no cough reflex to note. S1S2 heard and sinus bradycardia noted on CM. PPP, cap refil approx 3 seconds. PICC line to right upper arm infusing NS with 20 MEQ K+ @ KVO and Levophed @ 10 mcg/min. Arterial line in right radial artery, monitoring BP continuously and BP stable now. Patient is breathing with vent, rate of 14 set, lungs with crackles throughout, diminished in lower lobes. Midsternal dressing CDI, substernal dressing CDI, TPM attached but off. Left Daniel drain with serous fluid, compressed. BS hypo x4. Chiu in place draining concentrated urine via gravity. No fever to note. Bed low and locked. Will CPOC.
--- NOTE | 2018-06-22 21:01 | NUR ---
Family in room, update given. Brother of patient will be landing in [place] at 11pm tonight, waiting for them to arrive and see patient. Will call Dr. Her when family ready, informed family of this. Titrating Levophed per orders. VSS now, will CPOC.
--- NOTE | 2018-06-22 23:00 | NUR ---
Reassessment complete, please see flow sheets for details. No acute changes from previous assessment to note. Family at bedside, denies needs ATT. VSS, titrating levophed per orders. Bed low and locked, oral care provided. Will CPOC.
[2018-06-23] VITALS (9 sets, daily range): BP systolic 0–150; BP diastolic 0–58
--- NOTE | 2018-06-23 00:47 | NUR ---
Family at bedside, denies needs. Discussed plans with son Adama Harvey. All wishes confirmed with Adama. Dr Her gave orders for DNR and terminal extubation.
--- NOTE | 2018-06-23 01:07 | NUR ---
0100-FAMILY DECIEDED THEY WERE READY FOR PATIENT TO BE EXTUBATED. INFORMED RT. 0106-10MG MORPHINE GIVEN. WILL WAIT 30 MINS, FAMILY INFORMED OF THIS AND WENT TO WAITING ROOM. WILL GATHER SUPPLIES FOR EXTUBATION.
--- NOTE | 2018-06-23 02:31 | NUR ---
0142 - PATIENT EXTUBATED. FAMILY LET INTO ROOM. NO RESPIRATIONS SEEN POST EXTUBATION. ALL MEDICATIONS D/C'D. MONITORING HR AND BP. 0158 - NO BP PER ART-LINE, HR 0, AUSCULTATED CHEST, NO RR OR HR HEARD. 0200 - DR MEDRANO CALLED FOR PRONOUNCEMENT. 0202 - PATIENT PRONOUNCED VIA CARDIAC ARREST BY DR MEDRANO. 0205 - [facility] NOTIFIED, GAVE REQUESTED INFORMATION, STATED THEY WOULD BE GETTING AHOLD OF FAMILY FOR DONATION, [facility], WHICH IS WHERE FAMILY WANTS PATIENT TO GO. 0215 - SPOKE WITH JITENDRA AT [facility], INFORMED OF SITUATION. AWAIT CALL FROM LADLE PULLER FOR FURTHER INSTRUCTION. 0235 - NO CALL FROM DIRECTOR OF [facility], CALLED FOR FOLLOW UP, SPOKE WITH JITENDRA AGAIN, AWAIT CALL FROM DIRECTOR.
--- NOTE | 2018-06-23 02:50 | NUR ---
Post-mortum care provided.
--- NOTE | 2018-06-23 03:40 | NUR ---
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 PAYMENT REP NOTIFIED. ALL PAPERWORK SIGNED, COPY GIVEN TO HOME. PATIENT BODY SENT WITH HOME.
--- NOTE | 2018-06-23 10:36 | MORECARE ---
CASE MANAGEMENT DISCHARGE SUMMARY PATIENT: ADRIAN RHODES UNIT: [id number] ADM DATE: 06/16/18 AGE: 72 : 45 SEX: M [facility] AUTHOR: TUAN HARDWICK PHYSICIAN: REFERRING PHYSICIAN: OJSE LUIS GONZALEZ MD DATE OF SERVICE: 06/23/18 Discharge Plan Patient Name: ADRIAN RHODES [facility] 1945 Planned Disposition: Anticipated Discharge Date: Discharge Date: 06/23/2018 Expected LOS: Initial Reviewer: [email or web address] Initial Review Date: 06/19/2018 Generated: 06/23/18 11:36 am DCPIA - Discharge Planning Initial Assessment Updated by [email or web address]: Carolyn Patel on 06/23/18 10:35 am * Is the patient Alert and Oriented? No * Preadmission Environment Home Alone * ADLs Independent * List name and contact numbers for known caregivers / representatives who currently or will assist patient after discharge: Gail Palacios -daughter- [phone] * Verbal permission to speak to the caregivers and representatives has been obtained from the patient. N/A * Community resources currently utilized None * Additional services required to return to the preadmission environment? No * Can the patient safely return to the preadmission environment? Yes * Has this patient been hospitalized within the prior 30 days at any hospital? No Patient Name: ADRIAN RHODES Page [id number] at 1036 All edits/amendments must be made on the electronic document DICTATION DATE: 06/23/18 1035 HOLLOW CORE DOOR FRAME ASSEMBLER: MALACHI 06/23/18 1035 RPT#: [id number] DC DATE:06/23/18 STATUS: DIS IN [facility] [address] [place] [address] END OF REPORT
--- NOTE | 2018-06-23 10:45 | MORECARE ---
CASE MANAGEMENT DISCHARGE SUMMARY PATIENT: ADRIAN RHODES UNIT: [id number] ADM DATE: 06/16/18 AGE: 72 : 45 SEX: M ROOM/BED: D[facility] AUTHOR: RONENDOC PHYSICIAN: REFERRING PHYSICIAN: JOSE LUIS GONZALEZ MD DATE OF SERVICE: 06/23/18 Discharge Plan Patient Name: ADRIAN RHODES Facility: [facility]:[place] : 1945 Planned Disposition: Anticipated Discharge Date: Discharge Date: 06/23/2018 Expected LOS: Initial Reviewer: [email or web address] Initial Review Date: 06/19/2018 Generated: 06/23/18 11:45 am Comments DCP- Discharge Planning Updated by [email or web address]: Carolyn Patel on 06/23/18 9:[address] Late Entry 06/19/18 @ 1030 Patient Name: ADRIAN RHODES Admission Status: Elective Accout number: [id number] Admission Date: 06-16-2018 : 1945 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 Family was just notified that patient has had cva they are currently unsure of what will be needed or discharge disposition at this time. CM will continue to follow and assist as needed with discharge planning / needs. Reservation Manager: Carolyn Patel DCPIA - Discharge Planning Initial Assessment Updated by [email or web address]: Carolyn Patel on 06/23/18 10:35 am * Is the patient Alert and Oriented? No * Preadmission Environment Home Alone * ADLs Independent * List name and contact numbers for known caregivers / representatives who currently or will assist patient after discharge: Gail Palacios -daughter- [phone] * Verbal permission to speak to the caregivers and representatives has been obtained from the patient. N/A * Community resources currently utilized None * Additional services required to return to the preadmission environment? No * Can the patient safely return to the preadmission environment? Yes * Has this patient been hospitalized within the prior 30 days at any hospital? No Last DP export: 06/23/18 9:36 a Patient Name: ADRIAN RHODES Page [id number] at 1045 All edits/amendments must be made on the electronic document DICTATION DATE: 06/23/18 1045 MAINTENANCE DISPATCHER: MALACHI 06/23/18 1045 RPT#: [id number] DC DATE:06/23/18 STATUS: DIS IN [facility] [address] [place] [address] END OF REPORT
--- NOTE | 2018-06-27 13:29 | TEE ---
PATIENT:ADRIAN RHODES MEDICAL RECORD: [id number] LOCATION:[place] [address] AGE OF PATIENT: 72 ADMISSION DATE: 06/16/18 SEX: M REFERRING PHYSICIAN: INTERPRETING PHYSICIAN: YINA LOONEY MD TRANSESOPHAGEAL ECHOCARDIOGRAM Date: 06/16/18 KUMAR CHARGE Y INDICATIONS: CABG PREMEDICATIONS: PATIENT'S RESPONSE PROCEDURE DOPPLER MEASUREMENTS: LVIT LA PA RA LVOT RVOT Asc. Ao AV Gradient Peak AV Mean AV Area MV Gradient Peak MV Mean MV Area INTERPRETATION: Doppler: 2-D: COLOR FLOW DOPPLER NORMAL SALINE STUDY: MISCELLANOUS: DIAGNOSIS: PLAN: Revising Clerk:1 Dr. Looney Camelid Fiber Sorter: Asuncion FLORES COMMENTS: DATE OF SERVICE: 06/16/2018 Transesophageal echo evaluation of valvular structures during bypass surgery. FINDINGS: 1. Left ventricular chamber size is within normal limits. Left ventricular systolic function is normal. Overall ejection fraction estimated at 50%. 2. Left atrium is enlarged at 5.7 cm. Right atrium and right ventricle chamber sizes are as well mildly dilated. TRANSESOPHAGEAL ECHOCARDIOGRAM REPORT [id number] ADRIAN RHODES 3. Valvular structures have normal structure and motion. 4. Doppler interrogation reveals mild tricuspid regurgitation, mild mitral regurgitation, no other valvular insufficiency or stenosis. 5. No evidence of pericardial effusion or left ventricular thrombus. TRANSINT:[id number] Voice Confirmation ID: [id number] DOCUMENT ID: [id number] at 1329 CC: [id number] DICTATION DATE: 06/16/18 1255 MANAGER SHAREPOINT: 06/16/18 2350 DIS IN 06/23/18 [place] [id number] [place] [id number]
--- NOTE | 2018-06-28 17:59 | NUR ---
Per CMS protocol, restraint report logged into data base.
== END 2018-06-23 03:45 | DRG 235 ==
LOC: D.SDCHOLD 09:30 → D.CVICU 06-16 05:00
PROVIDERS: Internal Medicine Cardiovascular Disease; Internal Medicine Pulmonary Disease; ADMIT Thoracic Surgery (Cardiothoracic Vascular Surgery)
PROC: 021109W Bypass Coronary Artery, Two Arteries from Aorta with Autologous Venous Tissue, Open Approach (ICD-10-PCS; 2018-06-16)
PROC: 06BQ4ZZ Excision of Left Saphenous Vein, Percutaneous Endoscopic Approach (ICD-10-PCS; 2018-06-16)
PROC: 5A1221Z Performance of Cardiac Output, Continuous (ICD-10-PCS; 2018-06-16)
PROC: B24BZZ4 Ultrasonography of Heart with Aorta, Transesophageal (ICD-10-PCS; 2018-06-16)
PROC: 5A1945Z Respiratory Ventilation, 24-96 Consecutive Hours (ICD-10-PCS; 2018-06-16)
PROC: 0BH17EZ Insertion of Endotracheal Airway into Trachea, Via Natural or Artificial Opening (ICD-10-PCS; 2018-06-16)
PROC: 02100Z9 Bypass Coronary Artery, One Artery from Left Internal Mammary, Open Approach (ICD-10-PCS; principal; 2018-06-16 07:30)
PROC: 05HY33Z Insertion of Infusion Device into Upper Vein, Percutaneous Approach (ICD-10-PCS; 2018-06-20)
DX: I25.110 Atherosclerotic heart disease of native coronary artery with unstable angina pectoris (principal); J18.9 Pneumonia, unspecified organism; J96.00 Acute respiratory failure, unspecified whether with hypoxia or hypercapnia; I63.9 Cerebral infarction, unspecified; G93.5 Compression of brain; N17.9 Acute kidney failure, unspecified; J90 Pleural effusion, not elsewhere classified; G81.04 Flaccid hemiplegia affecting left nondominant side; I48.2 Chronic atrial fibrillation; I12.9 Hypertensive chronic kidney disease with stage 1 through stage 4 chronic kidney disease, or unspecified chronic kidney disease; N18.3 Chronic kidney disease, stage 3 (moderate); F17.200 Nicotine dependence, unspecified, uncomplicated; E87.6 Hypokalemia; I73.9 Peripheral vascular disease, unspecified; E78.5 Hyperlipidemia, unspecified; I07.9 Rheumatic tricuspid valve disease, unspecified; R00.1 Bradycardia, unspecified

== ENCOUNTER → 2018-06-15 15:45 | Outpatient (CLI) | payer MEDICARE ==
[2018-05-26 07:50] VITALS: BMI 27.6
[~2018-06-15 15:45] MED LIST changes: +FISH OIL 1,0001 CA1 PO
== END | disposition home or self-care (01) ==
LOC: D.CT 15:45
DX: I65.23 Occlusion and stenosis of bilateral carotid arteries (principal)